=== PATIENT | male | born 1940 | race Caucasian/White ===

== ENCOUNTER 2021-06-24 12:37 | Inpatient (IN) | payer MEDICARE, BC ==
[~2021-06-24] VITALS: Ht 180.3 cm; Wt 145.5 kg
[~2021-06-24 12:37] MED LIST: AMLO10TA4 PO; BIMA2.5D EACHEYE; BUDE10.2 IH; CHOL10003 PO; ENAL5TAB12 PO; FENO145T PO; Hydralazine Hcl PO; INSU100I13 SQ; METF500T16 PO; OMEP20CA16 PO; PIOG30TA41 PO; TAMS0.4C97 PO; VENTOLIN HFA18 GM IH
[2021-06-24] MEDS ORDERED: NON FORMULARY ITEM (Albuterol Sulfate (Ventolin Hfa Inhaler) 2 PUFF) IH SCH (13:30)
[2021-06-24] MEDS ORDERED: ALBUTEROL SULFATE 2.5 MG/3 ML NEBU. NEB PRN (13:45)
[2021-06-24 15:00] VITALS: BP 126/42
[2021-06-24] MEDS: ALBUTEROL SULFATE 2.5 MG/3 ML NEBU. NEB SCH ×2 (16:26→20:18)
[2021-06-24 19:00] VITALS: BP 129/66
[2021-06-24] MEDS ORDERED: methylPREDNISolone 4 MG TABLET. PO SCH (20:00)
[2021-06-24] MEDS: BUDESONIDE 0.5 MG/2 ML NEBU. NEB SCH (20:18)
--- NOTE | 2021-06-24 20:48 | HP ---
DATE OF SERVICE: 06/24/2021 ADMIT DATE: 06/24/2021 CHIEF COMPLAINT: Intractable back pain. HISTORY OF PRESENT ILLNESS: The patient is a pleasant elderly male who has had 2 previous back surgeries. He also has multiple comorbidities. Please see below. He basically presented with intractable back pain at [facility]. They called me and explained the situation. It appears he has severe stenosis. We have transferred the patient here for consultation with Dr. Lechuga. PAST MEDICAL HISTORY: Two previous back surgeries, overweight, GERD, diabetes, hyperlipidemia, glaucoma, hypertension, BPH, osteoarthritis. ALLERGIES: None. FAMILY HISTORY: Diabetes. SOCIAL HISTORY: He is retired. Does not drink, smoke or take drugs. His has Alzheimer's. He lives with her. MEDICATIONS: Reviewed, please refer to the MRAD. REVIEW OF SYSTEMS: GENERAL: No history of weight change, weakness or fevers. SKIN: No bruising, hair changes or rashes. EYES: No blurred, double or loss of vision. NOSE AND THROAT: No history of nosebleeds, hoarseness or sore throat. HEART: No history of palpitations, chest pain or shortness of breath on exertion. LUNGS: Denies cough, hemoptysis, wheezing or shortness of breath. GASTROINTESTINAL: Denies changes in appetite, nausea, vomiting, diarrhea or constipation. GENITOURINARY: No history of frequency, urgency, hesitancy or nocturia. NEUROLOGIC: Denies history of numbness, tingling, tremor or weakness. PSYCHIATRIC: No history of panic, anxiety or depression. ENDOCRINE: No history of heat or cold intolerance, polyuria or polydipsia. BACK: Patient complains of pain. EXTREMITIES: Patient complains of pain. PHYSICAL EXAMINATION: VITALS: Within normal limits and are stable. GENERAL: He is obese. HEENT: Normal cephalic atraumatic, external auditory canals are patent EYES: Extraocular muscles are intact, pupils are equally round and reactive to light and accommodation MUSCULOSKELETAL: Well developed, well nourished, good range of motion ENDOCRINE: No thyromegaly was palpated LYMPHATICS: No cervical chain or axillary nodes were noted HEMATOPOIETIC: No bruising NECK: Supple, no JVD, no thyromegaly was noted. LUNGS: Clear to auscultation in all lung traylor without rhonchi or wheezing. HEART: RRR, S1, S2 present. Peripheral pulses intact, no obvious murmurs were noted. ABDOMEN: Soft, nontender. Positive bowel sounds no organomegaly, normal bowel sounds. EXTREMITIES: He has very dry skin and 2+ edema. Poor hygiene of the lower extremities. NEUROLOGIC: Normal speech, normal tone. A and O x 3, moves all extremities, no obvious focal deficits. PSYCHIATRIC: He is stable and pleasant. SKIN: No ulcerations or rashes, good skin turgor, no jaundice. VASCULAR: Good capillary refill, neurovascular bundle appears to be intact. ASSESSMENT AND PLAN: Intractable back pain, suspect recurrence or progression of his previous spinal stenosis. The patient has been admitted. We are consulting Dr. Lechuga. Home meds. Deep venous thrombosis prophylaxis. Full code. 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 We will start him on empiric Medrol Dosepak. Trend labs. UNIQUE/SUSU/RANCHO DR: UNIQUE/harrison TID: [id number]
[2021-06-24] MEDS ORDERED: NON FORMULARY ITEM (Budesonide/Formoterol Fumarate (Symbicort 160-4.5 Mcg Inhaler) 2 PUFF) IH SCH (21:00)
[2021-06-24] MEDS ORDERED: TAMSULOSIN 0.4 MG CAP.ER.24H. PO SCH (21:00)
[2021-06-24] MEDS ORDERED: methylPREDNISolone 4 MG TABLET. PO ONE (21:00)
[2021-06-24] MEDS: LATANOPROST 0.005% OPHTH SOLUTION 2.5ML BOTTLE. OD SCH (21:17)
[2021-06-24] MEDS: INSULIN GLARGINE SYRINGE. SQ SCH (21:26)
[2021-06-24 23:00] VITALS: BP 126/57
[2021-06-24] MEDS ORDERED: HYDROcodone/APAP 5/325MG 1 TAB TABLET PO PRN (23:00)
[2021-06-24] MEDS: HYDROcodone/APAP 5/325MG 1 TAB TABLET PO PRN (23:17)
[2021-06-25 03:00] VITALS: BP 121/61
[2021-06-25 04:17] LABS: BASO % 0 % (0-3); EOS % 0 % (0-3); HEMATOCRIT 39.9 % (39.0-53.0); HEMOGLOBIN 13.3 g/dL (13.0-17.5); LYMPH # 0.3 x10^3/uL (1.0-4.8); LYMPH % 6 % (24-48); MEAN CORPUSCULAR HEMOGLOBIN 32 pg (25-35); MEAN CORPUSCULAR HGB CONC 33 g/dL (31-37); MEAN CORPUSCULAR VOLUME 95 fL (79-100); MONO # 0.1 x10^3/uL (0.0-1.1); MONO % 2 % (0-9); NEUT # 4.4 x10^3/uL (1.8-7.7); NEUT % 91 % (31-73); PLATELET COUNT 152 x10^3/uL (140-400); RED BLOOD COUNT 4.21 x10^6/uL (4.30-5.70); RED CELL DISTRIBUTION WIDTH 16.1 % (11.5-14.5); WHITE BLOOD COUNT 4.9 x10^3/uL (4.0-11.0)
[2021-06-25 04:35] LABS: CREATININE 1.4 mg/dL (0.7-1.3); GFR 48.8; POTASSIUM 5.1 mmol/L (3.5-5.1)
[2021-06-25 07:00] VITALS: BP 145/69
[2021-06-25] MEDS: BUDESONIDE 0.5 MG/2 ML NEBU. NEB SCH ×2 (08:00→20:00)
[2021-06-25] MEDS: ALBUTEROL SULFATE 2.5 MG/3 ML NEBU. NEB SCH ×4 (08:00→20:40)
[2021-06-25] MEDS: PANTOPRAZOLE 40 MG TABLET.DR. PO SCH (08:16)
[2021-06-25] MEDS: HYDROcodone/APAP 5/325MG 1 TAB TABLET PO PRN ×3 (08:57→22:42)
[2021-06-25] MEDS: CHOLECALCIFEROL (VITAMIN D3) 1,000 UNIT TABLET PO SCH (08:57)
[2021-06-25] MEDS: FENOFIBRATE,MICRONIZED 134 MG CAPSULE PO SCH (08:58)
[2021-06-25] MEDS: methylPREDNISolone 4 MG TABLET. PO SCH ×3 (08:58→18:23)
[2021-06-25] MEDS: PIOGLITAZONE 15 MG TABLET. PO SCH (08:58)
[2021-06-25] MEDS ORDERED: CHOLECALCIFEROL (VITAMIN D3) 1,000 UNIT TABLET PO SCH (09:00)
[2021-06-25] MEDS ORDERED: ALLO100T PO (09:17)
[2021-06-25] MEDS ORDERED: HYDR-2761 PO (09:17)
[2021-06-25] MEDS ORDERED: POTA15TA9 PO (09:17)
[2021-06-25] MEDS ORDERED: TAMS0.4C97 PO (09:17)
[2021-06-25] MEDS ORDERED: GADOTERATE 7.5 MMOL/15ML VIAL. IVP ONE (11:15)
[2021-06-25 12:00] VITALS: BP 139/66
--- NOTE | 2021-06-25 13:21 | PDOC ---
[employer] PROGRESS NOTE Date of Service DOS: DATE: 06/25/21 TIME: 13:19 Chief Complaint Chief Complaint Back pain History of Present Illness History of Present Illness The patient is a pleasant elderly male who has had 2 previous back surgeries. He also has multiple comorbidities. Please see below. He basically presented with intractable back pain at [facility]. They called me and explained the situation. It appears he has severe stenosis. We have transferred the patient here for consultation with Dr. Lechuga. 06/25 Patient evaluated examined at bedside. Pain well says pain is ongoing. MRI has been performed but not read yet. Neurosurgery following. Vitals/I&O Vitals/I&O: Vital Signs Date Time Temp Pulse Resp B/P (MAP) Pulse Ox O2 Delivery O2 Flow Rate FiO2 06/25/21 12:00 97.8 67 18 139/66 (90) 92 Room Air 97.8 Physical Exam General: Alert, Oriented X3, Cooperative Heart: Regular rate, Normal S1, Normal S2 Lungs: Clear Abdomen: Normal bowel sounds, Soft, No tenderness Extremities: No edema, Normal pulses Skin: No significant lesion Labs Labs: Laboratory Tests Test 06/25/21 04:05 White Blood Count 4.9 x10^3/uL (4.0-11.0) Red Blood Count 4.21 x10^6/uL (4.30-5.70) Hemoglobin 13.3 g/dL (13.0-17.5) Hematocrit 39.9 % (39.0-53.0) Mean Corpuscular Volume 95 fL (79-100) Mean Corpuscular Hemoglobin 32 pg (25-35) Mean Corpuscular Hemoglobin Concent 33 g/dL (31-37) Red Cell Distribution Width 16.1 % (11.5-14.5) Platelet Count 152 x10^3/uL (140-400) Neutrophils (%) (Auto) 91 % (31-73) Lymphocytes (%) (Auto) 6 % (24-48) Monocytes (%) (Auto) 2 % (0-9) Eosinophils (%) (Auto) 0 % (0-3) Basophils (%) (Auto) 0 % (0-3) Neutrophils # (Auto) 4.4 x10^3/uL (1.8-7.7) Lymphocytes # (Auto) 0.3 x10^3/uL (1.0-4.8) Monocytes # (Auto) 0.1 x10^3/uL (0.0-1.1) Eosinophils # (Auto) 0.0 x10^3/uL (0.0-0.7) Basophils # (Auto) 0.0 x10^3/uL (0.0-0.2) Sodium Level 138 mmol/L (136-145) Potassium Level 5.1 mmol/L (3.5-5.1) Chloride Level 104 mmol/L (98-107) Carbon Dioxide Level 26 mmol/L (21-32) Anion Gap 8 (6-14) Blood Urea Nitrogen 44 mg/dL (8-26) Creatinine 1.4 mg/dL (0.7-1.3) Estimated GFR (Cockcroft-Gault) 48.8 Glucose Level 139 mg/dL (70-99) Calcium Level 9.0 mg/dL (8.5-10.1) Assessment and Plan Assessmemt and Plan Intractable back pain, suspect recurrence or progression of his previous spinal stenosis. The patient has been admitted. We are consulting Dr. Lechuga. Home meds. Deep venous thrombosis prophylaxis. Full code. PT, OT, case management referral for possible manager social responsibility. We will start him on empiric Medrol Dosepak. Trend labs. Comment Review of Relevant I have reviewed the following items shirin (where applicable) has been applied. Medications: Current Medications Medications (Trade) Dose Ordered Sig/Nigel Route PRN Reason Start Time Stop Time Status Last Admin Dose Admin Amlodipine Besylate (Norvasc) 10 mg DAILY PO 06/25/21 09:00 06/25/21 08:57 Vitamin D (Vitamin D3) 1,000 unit DAILY PO 06/25/21 09:00 06/25/21 08:57 Tamsulosin HCl (Flomax) 0.4 mg QHS PO 06/24/21 21:00 06/24/21 21:17 Latanoprost (Xalatan) 1 drop QHS OD 06/24/21 21:00 06/24/21 21:17 Fenofibrate (Lofibra) 134 mg DAILY PO 06/25/21 09:00 06/25/21 08:58 Insulin Glargine (Lantus Syringe) 26 unit QHS SQ 06/24/21 21:00 06/24/21 21:26 Pantoprazole Sodium (Protonix) 40 mg DAILYAC PO 06/25/21 07:30 06/25/21 08:16 Pioglitazone HCl (Actos) 30 mg DAILY PO 06/25/21 09:00 06/25/21 08:58 Hydralazine HCl (Apresoline) 50 mg TID PO 06/24/21 14:00 06/25/21 08:58 Budesonide (Pulmicort) 0.5 mg RTBID NEB 06/24/21 20:00 06/24/21 20:18 Albuterol Sulfate (Ventolin Neb Soln) 2.5 mg RTQID NEB 06/24/21 16:00 06/24/21 20:18 Methylprednisolone (Medrol) 24 mg 1X ONCE PO 06/24/21 21:00 06/24/21 21:01 DC 06/24/21 21:19 Methylprednisolone (Medrol) 4 mg TIDPC PO 06/25/21 08:30 06/25/21 17:31 06/25/21 08:58 Acetaminophen/ Hydrocodone Bitart (Lortab 5/325) 1 tab PRN Q4HRS PRN PO MODERATE PAIN 4-6 06/24/21 23:00 06/25/21 04:43 Acetaminophen/ Hydrocodone Bitart (Lortab 5/325) 2 tab PRN Q4HRS PRN PO SEVERE PAIN 7-10 06/24/21 23:00 06/25/21 08:57 Gadoterate Meglumine (Clariscan) 29.2 ml 1X ONCE IVP 06/25/21 11:15 06/25/21 11:16 DC 06/25/21 11:28 Justifications for Admission Other Justification LENIN VIRGEN MD Jun 25, 2021 13:20
--- NOTE | 2021-06-25 13:35 | RAD ---
MRI LUMBAR SPINE WITHOUT AND WITH IV CONTRAST Date: 06/25/2021 11:00 AM Indication: back pain, lumbar stenosis, previous surgery Comparison: CT lumbar spine 06/24/2021. Technique: Multi-planar multi-weighted magnetic resonance imaging of the lumbar spine was performed w ith and without intravenous contrast using the standard lumbar spine protocol. [address] was administered intravenously during the examination. FINDINGS: L3 compression deformity with 20 percent loss of vertebral body height. Edema and fracture cleft celso g the superior endplate. No osseous retropulsion. 4 mm anterolisthesis at L3-4 due to facet arthropathy. Advanced multilevel degenerative disc desiccat ion and disc height loss. The conus terminates at a normal level. No abnormal signal is seen within the visualized distal spina l cord. No clumping of intrathecal nerve roots. No abnormal enhancement. No soft tissue abnormality in the visualized abdomen or pelvis. T12-L1: No disc bulge. No facet arthropathy. No significant spinal stenosis or neural foraminal narro wing. L1-L2: Disc bulge. Mild facet arthropathy. Mild spinal stenosis. Mild bilateral neural foraminal narr owing. L2-L3: Disc bulge. Moderate facet arthropathy. Ligamentum flavum thickening. Moderate spinal stenosis . Mild bilateral neural foraminal narrowing. L3-L4: Disc bulge. Severe facet arthropathy. Ligamentum flavum thickening. Severe spinal stenosis and lateral recess near. Moderate right and mild to moderate left neural foraminal narrowing. L4-L5: Disc bulge with far lateral protrusions. Moderate facet arthropathy. Ligamentum flavum thicken ing moderate spinal stenosis. Severe lateral recess narrowing. Moderate to severe right and moderate left neural foraminal narrowing. L5-S1: Posterior decompression. Disc bulge with left greater than right far lateral protrusions. No s milo canal stenosis. Moderate right and mild left lateral recess narrowing. Moderate to severe bilat eral neural foraminal narrowing. IMPRESSION: 1. Acute to subacute L3 compression deformity with 20 percent height loss. No osseous retropulsion. 2. Advanced lumbar spondylosis, worst at L3-4 with severe spinal canal stenosis. Electronically signed by: Bienvenido Archibald MD (06/25/2021 1:32 PM) [facility]
[2021-06-25] MEDS: ALLOPURINOL 100 MG TABLET. PO SCH ×2 (13:44→20:53)
[2021-06-25 15:00] VITALS: BP 123/56
[2021-06-25 19:00] VITALS: BP 129/60
[2021-06-25] MEDS: TAMSULOSIN 0.4 MG CAP.ER.24H. PO SCH (20:53)
[2021-06-25] MEDS ORDERED: methylPREDNISolone 4 MG TABLET. PO SCH (21:00)
[2021-06-25] MEDS: LATANOPROST 0.005% OPHTH SOLUTION 2.5ML BOTTLE. OD SCH (21:12)
[2021-06-25] MEDS: INSULIN GLARGINE SYRINGE. SQ SCH (21:13)
[2021-06-25 23:00] VITALS: BP 143/58
[2021-06-26 03:00] VITALS: BP 142/56
[2021-06-26] MEDS: HYDROcodone/APAP 5/325MG 1 TAB TABLET PO PRN ×3 (04:16→22:05)
[2021-06-26] MEDS: PANTOPRAZOLE 40 MG TABLET.DR. PO SCH (05:51)
[2021-06-26 07:00] VITALS: BP 135/69
[2021-06-26 07:07] LABS: BASO % 0 % (0-3); EOS % 0 % (0-3); HEMATOCRIT 39.5 % (39.0-53.0); HEMOGLOBIN 13.2 g/dL (13.0-17.5); LYMPH # 0.3 x10^3/uL (1.0-4.8); LYMPH % 7 % (24-48); MEAN CORPUSCULAR HEMOGLOBIN 31 pg (25-35); MEAN CORPUSCULAR HGB CONC 33 g/dL (31-37); MEAN CORPUSCULAR VOLUME 94 fL (79-100); MONO # 0.2 x10^3/uL (0.0-1.1); MONO % 4 % (0-9); NEUT # 4.2 x10^3/uL (1.8-7.7); NEUT % 89 % (31-73); PLATELET COUNT 167 x10^3/uL (140-400); RED BLOOD COUNT 4.21 x10^6/uL (4.30-5.70); RED CELL DISTRIBUTION WIDTH 16.2 % (11.5-14.5); WHITE BLOOD COUNT 4.8 x10^3/uL (4.0-11.0)
[2021-06-26 07:21] LABS: CALCIUM 8.8 mg/dL (8.5-10.1); CREATININE 1.2 mg/dL (0.7-1.3); GFR 58.3
[2021-06-26] MEDS: ALBUTEROL SULFATE 2.5 MG/3 ML NEBU. NEB SCH ×4 (07:43→20:43)
[2021-06-26] MEDS: BUDESONIDE 0.5 MG/2 ML NEBU. NEB SCH ×2 (07:43→20:43)
--- NOTE | 2021-06-26 08:46 | PDOC ---
[employer] PROGRESS NOTE Date of Service DOS: DATE: 06/26/21 TIME: 08:36 Chief Complaint Chief Complaint A/P: Back pain - MRI with L3 compression deformity. 2 prior spine surgeries, appears to have L5 prior surgery Acute to subacute L3 compression deformity with 20 percent height loss - I have d/w IR risk for extravasation BPH - on flomax JESUS MANUEL on CKD - likely vasomotor nephropathy. Cr from 1.4 to 1.2 Severe spinal canal stenosis - neurosurgery consulted, given radicular signs HTN - home meds DM2 - sliding scale, home meds Morbid obesity - counseled on lifestyle modification FEN - NPO PPX - PPI FULL CODE Dispo - inpatient History of Present Illness History of Present Illness Mr Moore is an 80 yo male who has had 2 previous back surgeries. He also has multiple comorbidities. He basically presented with intractable back pain at [facility]. He notes he has been to pain management over the past couple of months for back pain and right hip pain. He had injection of right hip with no improvement and has had LESI and what he describes as MBB and RFA of spine over the past 2 months with some minimal improvement. He could not get off the toilet on 06/23/2021 after he sat down to urinate and has had worsening pain and stiffness of his lower back and right hip since. We have transferred the patient here for consultation with Dr. Lechuga. 06/25: Patient evaluated examined at bedside. Pain well says pain is ongoing. MRI completed with 1. Acute to subacute L3 compression deformity with 20 percent height loss. No osseous retropulsion. 2. Advanced lumbar spondylosis, worst at L3-4 with severe spinal canal stenosis. Overnight pain still difficult to control. Maher placed due to inability to get up to urinate and retention. 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 No loss of bowel function. Still with right hip pain and pain in right leg radiating down to foot, worse on straight leg raising. Not able to get up out of bed without 10/10 pain. Vitals/I&O Vitals/I&O: Vital Signs Date Time Temp Pulse Resp B/P (MAP) Pulse Ox O2 Delivery O2 Flow Rate FiO2 06/26/21 07:43 96 Room Air 06/26/21 07:00 98.5 65 18 135/69 (91) 98.5 I & O 06/25/21 06/25/21 06/26/21 15:00 23:00 07:00 Intake Total 300 ml 100 ml 0 ml Output Total 450 ml 550 ml Balance 300 ml -350 ml -550 ml Physical Exam General: Alert, Oriented X3, Cooperative Heart: Regular rate, Normal S1, Normal S2 Lungs: Clear Abdomen: Normal bowel sounds, Soft, No tenderness Extremities: No edema, Normal pulses Skin: No significant lesion Labs Labs: Laboratory Tests Test 06/26/21 06:40 White Blood Count 4.8 x10^3/uL (4.0-11.0) Red Blood Count 4.21 x10^6/uL (4.30-5.70) Hemoglobin 13.2 g/dL (13.0-17.5) Hematocrit 39.5 % (39.0-53.0) Mean Corpuscular Volume 94 fL (79-100) Mean Corpuscular Hemoglobin 31 pg (25-35) Mean Corpuscular Hemoglobin Concent 33 g/dL (31-37) Red Cell Distribution Width 16.2 % (11.5-14.5) Platelet Count 167 x10^3/uL (140-400) Neutrophils (%) (Auto) 89 % (31-73) Lymphocytes (%) (Auto) 7 % (24-48) Monocytes (%) (Auto) 4 % (0-9) Eosinophils (%) (Auto) 0 % (0-3) Basophils (%) (Auto) 0 % (0-3) Neutrophils # (Auto) 4.2 x10^3/uL (1.8-7.7) Lymphocytes # (Auto) 0.3 x10^3/uL (1.0-4.8) Monocytes # (Auto) 0.2 x10^3/uL (0.0-1.1) Eosinophils # (Auto) 0.0 x10^3/uL (0.0-0.7) Basophils # (Auto) 0.0 x10^3/uL (0.0-0.2) Sodium Level 138 mmol/L (136-145) Potassium Level 5.0 mmol/L (3.5-5.1) Chloride Level 102 mmol/L (98-107) Carbon Dioxide Level 29 mmol/L (21-32) Anion Gap 7 (6-14) Blood Urea Nitrogen 38 mg/dL (8-26) Creatinine 1.2 mg/dL (0.7-1.3) Estimated GFR (Cockcroft-Gault) 58.3 Glucose Level 133 mg/dL (70-99) Calcium Level 8.8 mg/dL (8.5-10.1) Comment Review of Relevant I have reviewed the following items shirin (where applicable) has been applied. Medications: Current Medications Medications (Trade) Dose Ordered Sig/Nigel Route PRN Reason Start Time Stop Time Status Last Admin Dose Admin Amlodipine Besylate (Norvasc) 10 mg DAILY PO 06/25/21 09:00 06/25/21 08:57 Vitamin D (Vitamin D3) 1,000 unit DAILY PO 06/25/21 09:00 06/25/21 08:57 Fenofibrate (Lofibra) 134 mg DAILY PO 06/25/21 09:00 06/25/21 08:58 Pioglitazone HCl (Actos) 30 mg DAILY PO 06/25/21 09:00 06/25/21 08:58 Methylprednisolone (Medrol) 8 mg QHS PO 06/25/21 21:00 06/25/21 21:01 DC 06/25/21 20:53 Gadoterate Meglumine (Clariscan) 29.2 ml 1X ONCE IVP 06/25/21 11:15 06/25/21 11:16 DC 06/25/21 11:28 Allopurinol (Zyloprim) 100 mg BID PO 06/25/21 12:00 06/25/21 20:53 Tamsulosin HCl (Flomax) 0.8 mg QHS PO 06/25/21 21:00 06/25/21 20:53 Justifications for Admission Other Justification LENIN ELLIOTT MD Jun 26, 2021 08:46
[2021-06-26] MEDS: FENOFIBRATE,MICRONIZED 134 MG CAPSULE PO SCH (09:00)
[2021-06-26] MEDS: methylPREDNISolone 4 MG TABLET. PO SCH ×4 (09:00→21:09)
[2021-06-26] MEDS: CHOLECALCIFEROL (VITAMIN D3) 1,000 UNIT TABLET PO SCH (09:00)
[2021-06-26] MEDS ORDERED: DEXTROSE 50% 25 GM / 50ML DISP.SYRIN. IV PRN (09:00)
[2021-06-26] MEDS: PIOGLITAZONE 15 MG TABLET. PO SCH (09:00)
[2021-06-26] MEDS: ALLOPURINOL 100 MG TABLET. PO SCH ×2 (09:00→21:09)
[2021-06-26 09:38] LABS: % BANDS 1 % (0-9); % LYMPHS 7 % (24-48); % MONOS 3 % (0-10); % SEGS 89 % (35-66)
[2021-06-26 09:39] LABS: PLT ESTIMATE ADEQUATE (ADEQUATE)
[2021-06-26 11:00] VITALS: BP 148/61
[2021-06-26] MEDS: INSULIN LISPRO 300 UNITS/3 ML VIAL. SQ SCH ×2 (12:00→17:00)
--- NOTE | 2021-06-26 12:21 | PDOC ---
Provider Note Date of Service: DATE: 06/26/21 TIME: 12:13 Provider Note Patient seen and examined consulted for back pain c/o back and right hip and leg pain chronic back pain , worsened over last 3 weeks, reports 3 falls has been seen at pain clinic in [place] over the last few months, recently had right hip injection normal strength in lower extremities Lumbar MRI subacute, acute fracture of L3, grade I anterolisthesis L3-4, relatively severe stenosis at L3-4 and L4-5 At this point recommend vertebroplasty and potentially EMILIANO to allow fracture to heal At some point he may require decompressions at L3-4 and L4-5 however it is complicated by acute fracture of L3 and probability of instrumention being required at L3-4 due to anterolisthesis will follow Justifications for Admission Other Justification BRIGITTE BOSE MD Jun 26, 2021 12:21
[2021-06-26] MEDS ORDERED: fentaNYL PF VIAL 100 MCG/2 ML VIAL IVP PRN (13:30)
[2021-06-26] MEDS ORDERED: VANCOMYCIN 2 GM in IV NORMAL SALINE 500ML BAG 500 ML IV ONE (14:00)
[2021-06-26] MEDS: VANCOMYCIN PER PHARMACY MC PRN (14:54)
--- NOTE | 2021-06-26 14:55 | NUR ---
Pharmacy Vancomycin Dosing Note S:Consulted to monitor and dose vancomycin started 06/26/21. O:ALEXEI POSADAS is a 80 year old M with UTI . Height: 5 feet, 11 inches Weight: 145.5 kg [place] Body Weight: 75.30 Adjusted Body Weight: 103.38 Dosing Weight: Actual Other Antibiotics: LABS: Last BUN: 38 Last Creatinine: 1.2 Creatinine Clearance: 72 mL/min Last WBC: 4.8 Last Procalcitonin: Tmax (past 24 hours): 98.5 Microbiology: From [facility] Urine (06/24): >100,000 staph aureus I/O: 400/1000 Drug Levels: Last level: on at Last dose given 06/26/21 at 1418 Vancomycin Dosing: Loading Dose: 2000 mg x1 Dosing Weight: Actual Target Trough: 10-20 A: Based on: Body weight and renal function P: 1. Start Vancomycin 2000 mg IV q24h 2. Follow up Trough level on 06/28/21 at 1330 3. Pharmacy will continue to monitor, follow and adjust therapy as needed. ERON RABGAO [facility], 06/26/21 [id number]
[2021-06-26 15:00] VITALS: BP 100/47
[2021-06-26 19:30] VITALS: BP 138/66
[2021-06-26] MEDS: TAMSULOSIN 0.4 MG CAP.ER.24H. PO SCH (21:00)
[2021-06-26] MEDS: LATANOPROST 0.005% OPHTH SOLUTION 2.5ML BOTTLE. OD SCH (21:09)
[2021-06-26] MEDS: MINERAL OIL/PETROLATUM TOPICAL CREAM 113GM JAR. TP SCH (21:11)
[2021-06-26] MEDS: INSULIN GLARGINE SYRINGE. SQ SCH (21:18)
[2021-06-26 23:04] VITALS: BP 124/62
[2021-06-27] VITALS (14 sets, daily range): BP systolic 98–166; BP diastolic 48–77
[2021-06-27 04:49] LABS: BASO % 0 % (0-3); EOS % 1 % (0-3); HEMATOCRIT 39.6 % (39.0-53.0); HEMOGLOBIN 12.9 g/dL (13.0-17.5); LYMPH # 0.3 x10^3/uL (1.0-4.8); LYMPH % 8 % (24-48); MEAN CORPUSCULAR HEMOGLOBIN 31 pg (25-35); MEAN CORPUSCULAR HGB CONC 33 g/dL (31-37); MEAN CORPUSCULAR VOLUME 95 fL (79-100); MONO # 0.2 x10^3/uL (0.0-1.1); MONO % 4 % (0-9); NEUT # 3.7 x10^3/uL (1.8-7.7); NEUT % 87 % (31-73); PLATELET COUNT 168 x10^3/uL (140-400); RED BLOOD COUNT 4.19 x10^6/uL (4.30-5.70); RED CELL DISTRIBUTION WIDTH 15.9 % (11.5-14.5); WHITE BLOOD COUNT 4.3 x10^3/uL (4.0-11.0)
[2021-06-27 05:28] LABS: CALCIUM 8.7 mg/dL (8.5-10.1); GFR 71.9; POTASSIUM 4.5 mmol/L (3.5-5.1)
[2021-06-27] MEDS: HYDROcodone/APAP 5/325MG 1 TAB TABLET PO PRN ×3 (06:32→17:54)
--- NOTE | 2021-06-27 06:58 | PDOC ---
[employer] PROGRESS NOTE Date of Service DOS: DATE: 06/27/21 TIME: 06:57 Chief Complaint Chief Complaint A/P: Back pain - MRI with L3 compression deformity. 2 prior spine surgeries, appears to have L5 prior surgery Acute to subacute L3 compression deformity with 20 percent height loss - I have d/w IR for kyphoplasty BPH - on flomax. Maher placed for overflow incontinence JESUS MANUEL on CKD - likely vasomotor nephropathy. Cr from 1.4 to 1.2 Severe spinal canal stenosis - neurosurgery consulted, given radicular signs HTN - home meds DM2 - sliding scale, home meds Morbid obesity - counseled on lifestyle modification Staph UTI - started on vancomycin, is MSSA, will cont vancomycin for now FEN - NPO PPX - PPI FULL CODE Dispo - inpatient History of Present Illness History of Present Illness Mr Moore is an 80 yo male who has had 2 previous back surgeries. He also has multiple comorbidities. He basically presented with intractable back pain at [facility]. He notes he has been to pain management over the past couple of months for back pain and right hip pain. He had injection of right hip with no improvement and has had LESI and what he describes as MBB and RFA of spine over the past 2 months with some minimal improvement. He could not get off the toilet on 06/23/2021 after he sat down to urinate and has had worsening pain and stiffness of his lower back and right hip since. We have transferred the patient here for consultation with Dr. Lechuga. 06/25: Patient evaluated examined at bedside. Pain well says pain is ongoing. MRI completed with 1. Acute to subacute L3 compression deformity with 20 percent height loss. No osseous retropulsion. 2. Advanced lumbar spondylosis, worst at L3-4 with severe spinal canal stenosis. 06/26: Overnight pain still difficult to control. Maher placed due to inability to get up to urinate and retention. 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 No l oss of bowel function. Still with right hip pain and pain in right leg radiating down to foot, worse on straight leg raising. Not able to get up out of bed without 10/10 pain. To kyphoplasty this morning. Staph in urine returned MSSA. Pain stable, severe, down right leg and hip. No SOB or CP. Vitals/I&O Vitals/I&O: Vital Signs Date Time Temp Pulse Resp B/P (MAP) Pulse Ox O2 Delivery O2 Flow Rate FiO2 06/27/21 06:32 20 Room Air 06/27/21 03:01 98.1 94 136/54 (81) 94 98.1 I & O 06/26/21 06/26/21 06/27/21 15:00 23:00 07:00 Intake Total 240 ml 360 ml Output Total 1225 ml 300 ml Balance -985 ml 60 ml Physical Exam General: Alert, Oriented X3, Cooperative Heart: Regular rate, Normal S1, Normal S2 Lungs: Clear Abdomen: Normal bowel sounds, Soft, No tenderness Extremities: No edema, Normal pulses Skin: No significant lesion Labs Labs: Laboratory Tests Test 06/26/21 12:19 06/26/21 16:56 06/26/21 21:05 06/27/21 04:20 Glucose (Fingerstick) 107 mg/dL (70-99) 144 mg/dL (70-99) 151 mg/dL (70-99) White Blood Count 4.3 x10^3/uL (4.0-11.0) Red Blood Count 4.19 x10^6/uL (4.30-5.70) Hemoglobin 12.9 g/dL (13.0-17.5) Hematocrit 39.6 % (39.0-53.0) Mean Corpuscular Volume 95 fL (79-100) Mean Corpuscular Hemoglobin 31 pg (25-35) Mean Corpuscular Hemoglobin Concent 33 g/dL (31-37) Red Cell Distribution Width 15.9 % (11.5-14.5) Platelet Count 168 x10^3/uL (140-400) Neutrophils (%) (Auto) 87 % (31-73) Lymphocytes (%) (Auto) 8 % (24-48) Monocytes (%) (Auto) 4 % (0-9) Eosinophils (%) (Auto) 1 % (0-3) Basophils (%) (Auto) 0 % (0-3) Neutrophils # (Auto) 3.7 x10^3/uL (1.8-7.7) Lymphocytes # (Auto) 0.3 x10^3/uL (1.0-4.8) Monocytes # (Auto) 0.2 x10^3/uL (0.0-1.1) Eosinophils # (Auto) 0.0 x10^3/uL (0.0-0.7) Basophils # (Auto) 0.0 x10^3/uL (0.0-0.2) Sodium Level 137 mmol/L (136-145) Potassium Level 4.5 mmol/L (3.5-5.1) Chloride Level 102 mmol/L (98-107) Carbon Dioxide Level 30 mmol/L (21-32) Anion Gap 5 (6-14) Blood Urea Nitrogen 38 mg/dL (8-26) Creatinine 1.0 mg/dL (0.7-1.3) Estimated GFR (Cockcroft-Gault) 71.9 Glucose Level 113 mg/dL (70-99) Calcium Level 8.7 mg/dL (8.5-10.1) Comment Review of Relevant I have reviewed the following items shirin (where applicable) has been applied. Medications: Current Medications Medications (Trade) Dose Ordered Sig/Nigel Route PRN Reason Start Time Stop Time Status Last Admin Dose Admin Methylprednisolone (Medrol) 4 mg QIDAFTMEAL PO 06/26/21 09:00 06/26/21 21:01 DC 06/26/21 21:09 Vancomycin HCl (Vanco Per Pharmacy) 1 each PRN DAILY PRN MC SEE COMMENTS 06/26/21 13:30 06/26/21 14:54 Vancomycin HCl 2 gm/Sodium Chloride 500 ml @ 250 mls/hr 1X ONCE IV 06/26/21 14:00 06/26/21 15:59 DC 06/26/21 14:18 Multi-Ingredient Ointment (Hydrocerin, Eucerin Cream) 1 kina BID TP 06/26/21 21:00 06/26/21 21:11 Justifications for Admission Other Justification LENIN ELLIOTT MD Jun 27, 2021 06:58
[2021-06-27] MEDS: ALBUTEROL SULFATE 2.5 MG/3 ML NEBU. NEB SCH ×4 (07:19→20:02)
[2021-06-27] MEDS: BUDESONIDE 0.5 MG/2 ML NEBU. NEB SCH ×2 (07:19→20:02)
[2021-06-27] MEDS: INSULIN LISPRO 300 UNITS/3 ML VIAL. SQ SCH ×3 (08:00→17:00)
[2021-06-27] MEDS ORDERED: IOHEXOL 240 MG/ML 50ML VIAL. ONE (08:26)
[2021-06-27] MEDS ORDERED: LIDOCAINE WITH 8.4% SOD BICARB 3 ML DISP.SYRIN. ONE (08:26)
--- NOTE | 2021-06-27 08:29 | CONS ---
DATE OF CONSULTATION: 06/26/2021 LOCATION: He is in room 444. ATTENDING PHYSICIAN: Ailyn Bashir DO REASON FOR CONSULTATION: The patient was seen at the request of Dr. Bashir and Dr. Lechuga for rehab evaluation. 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 The patient had lumbar spine surgery done twice early 50s or 60s and also in the last [address] Tidwell for lumbar spinal stenosis. He also had bilateral total knee arthroplasties done by Dr. Qureshi without any problems. The patient had chronic back pain and he has been taking hydrocodone 2 tablets every 6 hours, also being followed by [facility] where he had epidural steroid injections and radiofrequency ablations with some help, but still requiring narcotic pain medication on a regular basis. He uses a roller walker on an as needed basis. The patient was admitted as per transfer from [facility] on 06/24/2021 with intractable back pain. He denies any specific injury or falls recently. He had MRI scan of lumbar vertebrae, which revealed multilevel degenerative disk disease and degenerative joint disease with acute to subacute compression deformity of L3 vertebral body and lumbar spinal stenosis and spondylolisthesis at multiple levels and the patient is being considered for L3 kyphoplasty and Dr. Lechuga felt like he might need lumbar spine surgery later on, but concern about his L3 vertebral body compression fracture to stabilize the spine. The patient also with history of obesity, gastroesophageal reflux disease, diabetes mellitus, hyperlipidemia, glaucoma, hypertension, benign prostatic hypertrophy, osteoarthritis and significant weakness and stiffness of both shoulders. He also had previous radiological studies of his cervical vertebrae, which revealed degenerative disk disease and degenerative joint disease. The patient admits numbness in both hands. ALLERGIES: He is not known allergic to any medication. PHYSICAL EXAMINATION: Today revealed an elderly obese male. He is alert, oriented to time, place, person and circumstance and follows commands appropriately. He is in no acute distress. He had minimal tenderness to palpation over lumbar spine and adjoining sacroiliac joint area. Straight leg raising test is negative bilaterally. He had significant weakness of rotator cuff muscles, especially on the left side and also relative weakness of biceps brachii muscles bilaterally. He had crepitus on range of motion of both shoulder joints. He had equal perception of touch and pinprick sensation bilaterally except for decreased sensory perception over median nerve distribution in both hands with positive Tinel sign over median nerve at the wrist and positive Phalen sign at both wrists. He also had a positive Tinel sign over the ulnar nerve at the elbow. The patient had muscle atrophy involving thenar eminence muscles in both hands. He had dry scaly skin of his feet and legs. He requires help with rolling from side to side. I have not tested his transfers or ambulation skills at this time. He had some tenderness to palpation over anterior aspect of both shoulders. ASSESSMENT: Elderly male with chronic lower back pain from degenerative disk disease and degenerative joint disease of lumbar vertebrae with associated spondylolisthesis and lumbar spinal stenosis at L3-L4, L4-L5 level and subacute L3 vertebral body compression fracture. No clinical evidence of ongoing lumbar radiculopathy or lumbar spinal stenosis. He denies any trouble with his bowel or bladder control. He also presents with bilateral rotator cuff tear, left more than right side with significant weakness of rotator cuff muscles and also biceps brachii to rule out associated degenerative disk disease and degenerative joint disease of cervical vertebrae with associated cervical spinal stenosis. 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 He had dry scaly skin of his lower extremities and he is obese. RECOMMENDATIONS: Agree with the plan for kyphoplasty. He had lumbar support braces at home. He is not sure that helps any to see how he does move after kyphoplasty with physical therapy. He might need nursing home care unit or home with home health depending upon his mobility. He needs MRI scan of his both shoulders and cervical vertebrae. I am not sure it can be done at present time. Dr. Lechuga and Krysten, I appreciate asking me to participate in the care of this interesting patient. I will be glad to see him for followup with you on as needed basis. NAYELI/VASQUEZ/SANJAY DR: NAYELI/harrison TID: [id number] MTDD
[2021-06-27] MEDS ORDERED: IOHEXOL 240 MG/ML 50ML VIAL. IJ ONE (08:45)
[2021-06-27] MEDS ORDERED: LIDOCAINE WITH 8.4% SOD BICARB 3 ML DISP.SYRIN. IJ ONE (08:45)
[2021-06-27] MEDS ORDERED: MIDAZOLAM HCL/PF 5 MG/5 ML VIAL. IV ONE (08:45)
[2021-06-27] MEDS ORDERED: fentaNYL PF VIAL 100 MCG/2 ML VIAL IV ONE (08:45)
[2021-06-27] MEDS ORDERED: MIDAZOLAM HCL/PF 5 MG/5 ML VIAL. ONE (08:54)
[2021-06-27] MEDS ORDERED: fentaNYL PF VIAL 100 MCG/2 ML VIAL ONE (08:54)
[2021-06-27] MEDS ORDERED: ceFAZolin SODIUM 3 GM in IV DEXTROSE 5% 100ML 100 ML IV ONE (09:00)
[2021-06-27] MEDS: VANCOMYCIN PER PHARMACY MC PRN (12:25)
[2021-06-27] MEDS: PIOGLITAZONE 15 MG TABLET. PO SCH (12:35)
[2021-06-27] MEDS: MINERAL OIL/PETROLATUM TOPICAL CREAM 113GM JAR. TP SCH ×2 (12:35→21:23)
[2021-06-27] MEDS: FENOFIBRATE,MICRONIZED 134 MG CAPSULE PO SCH (12:35)
[2021-06-27] MEDS: CHOLECALCIFEROL (VITAMIN D3) 1,000 UNIT TABLET PO SCH (12:35)
[2021-06-27] MEDS: methylPREDNISolone 4 MG TABLET. PO SCH ×3 (12:35→21:16)
[2021-06-27] MEDS: PANTOPRAZOLE 40 MG TABLET.DR. PO SCH (12:36)
[2021-06-27] MEDS: ALLOPURINOL 100 MG TABLET. PO SCH ×2 (12:36→21:16)
[2021-06-27] MEDS: VANCOMYCIN 2 GM in IV NORMAL SALINE 500ML BAG 500 ML IV SCH (14:50)
--- NOTE | 2021-06-27 16:46 | PDOC ---
PROGRESS NOTES Date of Service DATE: 06/27/21 TIME: 16:43 Subjective Subjective He admits significant help with severity of his low back pain since kyphoplasty. Objective Objective Vital Signs Date Time Temp Pulse Resp B/P (MAP) Pulse Ox O2 Delivery O2 Flow Rate FiO2 06/27/21 15:37 Room Air 06/27/21 15:00 97.8 91 18 117/48 (71) 92 97.8 06/27/21 10:01 2.0 Intake and Output 06/27/21 07:00 Intake Total 600 ml Output Total 1525 ml Balance -925 ml Intake Oral 600 ml Output Urine Total 1525 ml Physical Exam Physical Exam He is supine in bed and seems to be comfortable and he states that he got up to commode. Plan Plan of Care To d/c Maher catheter tomorrow AM and see how he does with mobility,to decide on home with home health follow up or SNF transfer. Comment Review of Relevant I have reviewed the following items shirin (where applicable) has been applied. Labs Laboratory Tests Test 06/26/21 06:40 06/26/21 12:19 06/26/21 16:56 06/26/21 21:05 White Blood Count 4.8 x10^3/uL (4.0-11.0) Red Blood Count 4.21 x10^6/uL (4.30-5.70) Hemoglobin 13.2 g/dL (13.0-17.5) Hematocrit 39.5 % (39.0-53.0) Mean Corpuscular Volume 94 fL (79-100) Mean Corpuscular Hemoglobin 31 pg (25-35) Mean Corpuscular Hemoglobin Concent 33 g/dL (31-37) Red Cell Distribution Width 16.2 % (11.5-14.5) Platelet Count 167 x10^3/uL (140-400) Neutrophils (%) (Auto) 89 % (31-73) Lymphocytes (%) (Auto) 7 % (24-48) Monocytes (%) (Auto) 4 % (0-9) Eosinophils (%) (Auto) 0 % (0-3) Basophils (%) (Auto) 0 % (0-3) Neutrophils # (Auto) 4.2 x10^3/uL (1.8-7.7) Lymphocytes # (Auto) 0.3 x10^3/uL (1.0-4.8) Monocytes # (Auto) 0.2 x10^3/uL (0.0-1.1) Eosinophils # (Auto) 0.0 x10^3/uL (0.0-0.7) Basophils # (Auto) 0.0 x10^3/uL (0.0-0.2) Segmented Neutrophils % 89 % (35-66) Band Neutrophils % 1 % (0-9) Lymphocytes % 7 % (24-48) Monocytes % 3 % (0-10) Platelet Estimate Adequate (ADEQUATE) Large Platelets Occ Sodium Level 138 mmol/L (136-145) Potassium Level 5.0 mmol/L (3.5-5.1) Chloride Level 102 mmol/L (98-107) Carbon Dioxide Level 29 mmol/L (21-32) Anion Gap 7 (6-14) Blood Urea Nitrogen 38 mg/dL (8-26) Creatinine 1.2 mg/dL (0.7-1.3) Estimated GFR (Cockcroft-Gault) 58.3 Glucose Level 133 mg/dL (70-99) Calcium Level 8.8 mg/dL (8.5-10.1) Glucose (Fingerstick) 107 mg/dL (70-99) 144 mg/dL (70-99) 151 mg/dL (70-99) Test 06/27/21 04:20 06/27/21 08:00 06/27/21 11:08 White Blood Count 4.3 x10^3/uL (4.0-11.0) Red Blood Count 4.19 x10^6/uL (4.30-5.70) Hemoglobin 12.9 g/dL (13.0-17.5) Hematocrit 39.6 % (39.0-53.0) Mean Corpuscular Volume 95 fL (79-100) Mean Corpuscular Hemoglobin 31 pg (25-35) Mean Corpuscular Hemoglobin Concent 33 g/dL (31-37) Red Cell Distribution Width 15.9 % (11.5-14.5) Platelet Count 168 x10^3/uL (140-400) Neutrophils (%) (Auto) 87 % (31-73) Lymphocytes (%) (Auto) 8 % (24-48) Monocytes (%) (Auto) 4 % (0-9) Eosinophils (%) (Auto) 1 % (0-3) Basophils (%) (Auto) 0 % (0-3) Neutrophils # (Auto) 3.7 x10^3/uL (1.8-7.7) Lymphocytes # (Auto) 0.3 x10^3/uL (1.0-4.8) Monocytes # (Auto) 0.2 x10^3/uL (0.0-1.1) Eosinophils # (Auto) 0.0 x10^3/uL (0.0-0.7) Basophils # (Auto) 0.0 x10^3/uL (0.0-0.2) Sodium Level 137 mmol/L (136-145) Potassium Level 4.5 mmol/L (3.5-5.1) Chloride Level 102 mmol/L (98-107) Carbon Dioxide Level 30 mmol/L (21-32) Anion Gap 5 (6-14) Blood Urea Nitrogen 38 mg/dL (8-26) Creatinine 1.0 mg/dL (0.7-1.3) Estimated GFR (Cockcroft-Gault) 71.9 Glucose Level 113 mg/dL (70-99) Calcium Level 8.7 mg/dL (8.5-10.1) Glucose (Fingerstick) 109 mg/dL (70-99) 93 mg/dL (70-99) Laboratory Tests Test 06/26/21 16:56 06/26/21 21:05 06/27/21 04:20 06/27/21 08:00 Glucose (Fingerstick) 144 mg/dL (70-99) 151 mg/dL (70-99) 109 mg/dL (70-99) White Blood Count 4.3 x10^3/uL (4.0-11.0) Red Blood Count 4.19 x10^6/uL (4.30-5.70) Hemoglobin 12.9 g/dL (13.0-17.5) Hematocrit 39.6 % (39.0-53.0) Mean Corpuscular Volume 95 fL (79-100) Mean Corpuscular Hemoglobin 31 pg (25-35) Mean Corpuscular Hemoglobin Concent 33 g/dL (31-37) Red Cell Distribution Width 15.9 % (11.5-14.5) Platelet Count 168 x10^3/uL (140-400) Neutrophils (%) (Auto) 87 % (31-73) Lymphocytes (%) (Auto) 8 % (24-48) Monocytes (%) (Auto) 4 % (0-9) Eosinophils (%) (Auto) 1 % (0-3) Basophils (%) (Auto) 0 % (0-3) Neutrophils # (Auto) 3.7 x10^3/uL (1.8-7.7) Lymphocytes # (Auto) 0.3 x10^3/uL (1.0-4.8) Monocytes # (Auto) 0.2 x10^3/uL (0.0-1.1) Eosinophils # (Auto) 0.0 x10^3/uL (0.0-0.7) Basophils # (Auto) 0.0 x10^3/uL (0.0-0.2) Sodium Level 137 mmol/L (136-145) Potassium Level 4.5 mmol/L (3.5-5.1) Chloride Level 102 mmol/L (98-107) Carbon Dioxide Level 30 mmol/L (21-32) Anion Gap 5 (6-14) Blood Urea Nitrogen 38 mg/dL (8-26) Creatinine 1.0 mg/dL (0.7-1.3) Estimated GFR (Cockcroft-Gault) 71.9 Glucose Level 113 mg/dL (70-99) Calcium Level 8.7 mg/dL (8.5-10.1) Test 06/27/21 11:08 Glucose (Fingerstick) 93 mg/dL (70-99) Medications Current Medications Amlodipine Besylate (Norvasc) 10 mg DAILY PO Last administered on 06/27/21at 12:35; Start 06/25/21 at 09:00 Vitamin D (Vitamin D3) 1,000 unit DAILY PO Last administered on 06/27/21at 12:35; Start 06/25/21 at 09:00 Vitamin D (Vitamin D3) 1,000 unit DAILY PO ; Start 06/25/21 at 09:00; Status UNV Tamsulosin HCl (Flomax) 0.4 mg QHS PO Last administered on 06/24/21at 21:17; Start 06/24/21 at 21:00; Stop 06/25/21 at 20:48; Status DC Non-Formulary Medication (Albuterol Sulfate (Ventolin Hfa Inhaler)) 2 puff PRN Q4-6HRS IH ; Start 06/24/21 at 13:30; Status UNV Latanoprost (Xalatan) 1 drop QHS OD Last administered on 06/26/21at 21:09; Start 06/24/21 at 21:00 Non-Formulary Medication (Budesonide/ Formoterol Fumarate (Symbicort 160-4.5 Mcg Inhaler)) 2 puff BID IH ; Start 06/24/21 at 21:00; Status UNV Fenofibrate (Lofibra) 134 mg DAILY PO Last administered on 06/27/21at 12:35; Start 06/25/21 at 09:00 Insulin Glargine (Lantus Syringe) 26 unit QHS SQ Last administered on 06/26/21at 21:18; Start 06/24/21 at 21:00 Pantoprazole Sodium (Protonix) 40 mg DAILYAC PO Last administered on 06/27/21at 12:36; Start 06/25/21 at 07:30 Pioglitazone HCl (Actos) 30 mg DAILY PO Last administered on 06/27/21at 12:35; Start 06/25/21 at 09:00 Hydralazine HCl (Apresoline) 50 mg TID PO Last administered on 06/26/21at 21:08; Start 06/24/21 at 14:00 Budesonide (Pulmicort) 0.5 mg RTBID NEB Last administered on 06/27/21at 07:19; Start 06/24/21 at 20:00 Albuterol Sulfate (Ventolin Neb Soln) 2.5 mg RTQID NEB Last administered on 06/27/21at 15:36; Start 06/24/21 at 16:00 Albuterol Sulfate (Ventolin Neb Soln) 2.5 mg PRN Q6HRS PRN NEB SHORTNESS OF BREATH; Start 06/24/21 at 13:45 Methylprednisolone (Medrol) 24 mg 1X ONCE PO Last administered on 06/24/21at 21:19; Start 06/24/21 at 21:00; Stop 06/24/21 at 21:01; Status DC Methylprednisolone (Medrol) 4 mg BIDPCLD PO ; Start 06/24/21 at 20:00; Stop 06/25/21 at 12:31; Status UNV Methylprednisolone (Medrol) 4 mg TIDPC PO Last administered on 06/25/21at 18:23; Start 06/25/21 at 08:30; Stop 06/25/21 at 17:31; Status DC Methylprednisolone (Medrol) 8 mg QHS PO Last administered on 06/25/21at 20:53; Start 06/25/21 at 21:00; Stop 06/25/21 at 21:01; Status DC Methylprednisolone (Medrol) 4 mg QIDAFTMEAL PO Last administered on 06/26/21at 21:09; Start 06/26/21 at 09:00; Stop 06/26/21 at 21:01; Status DC Methylprednisolone (Medrol) 4 mg TID PO Last administered on 06/27/21at 14:50; Start 06/27/21 at 09:00; Stop 06/27/21 at 21:01 Methylprednisolone (Medrol) 4 mg BID PO ; Start 06/28/21 at 09:00; Stop 06/28/21 at 21:01 Methylprednisolone (Medrol) 4 mg DAILY PO ; Start 06/29/21 at 09:00; Stop 06/29/21 at 09:01 Acetaminophen/ Hydrocodone Bitart (Lortab 5/325) 1 tab PRN Q4HRS PRN PO MODERATE PAIN 4-6 Last administered on 06/25/21at 04:43; Start 06/24/21 at 23:0 0 Acetaminophen/ Hydrocodone Bitart (Lortab 5/325) 2 tab PRN Q4HRS PRN PO SEVERE PAIN 7-10 Last administered on 06/27/21at 13:09; Start 06/24/21 at 23:00 Gadoterate Meglumine (Clariscan) 29.2 ml 1X ONCE IVP Last administered on 06/25/21at 11:28; Start 06/25/21 at 11:15; Stop 06/25/21 at 11:16; Status DC Allopurinol (Zyloprim) 100 mg BID PO Last administered on 06/27/21at 12:36; Start 06/25/21 at 12:00 Tamsulosin HCl (Flomax) 0.8 mg QHS PO Last administered on 06/26/21at 21:00; Start 06/25/21 at 21:00 Insulin Human Lispro (HumaLOG) 0-9 UNITS TIDWMEALS SQ ; Start 06/26/21 at 12:00 Dextrose (Dextrose 50%-Water Syringe) 12.5 gm PRN Q15MIN PRN IV SEE COMMENTS; Start 06/26/21 at 09:00 Fentanyl Citrate (Fentanyl 2ml Vial) 25 mcg PRN Q3HRS PRN IVP SEVERE PAIN 7-10; Start 06/26/21 at 13:30 Vancomycin HCl (Vanco Per Pharmacy) 1 each PRN DAILY PRN MC SEE COMMENTS Last administered on 06/27/21at 12:25; Start 06/26/21 at 13:30 Vancomycin HCl 2 gm/Sodium Chloride 500 ml @ 250 mls/hr 1X ONCE IV Last adm inistered on 06/26/21at 14:18; Start 06/26/21 at 14:00; Stop 06/26/21 at 15:59; Status DC Vancomycin HCl (Vancomycin Trough Level) 1 each 1X ONCE MC ; Start 06/28/21 at 13:30; Stop 06/28/21 at 13:31 Vancomycin HCl 2 gm/Sodium Chloride 500 ml @ 250 mls/hr Q24H IV Last administered on 06/27/21at 14:50; Start 06/27/21 at 14:00 Multi-Ingredient Ointment (Hydrocerin, Eucerin Cream) 1 kina BID TP Last administered on 06/27/21at 12:35; Start 06/26/21 at 21:00 Iohexol (Omnipaque 240 Mg/ml) 50 ml STK-MED ONCE .ROUTE ; Start 06/27/21 at 08:26; Stop 06/27/21 at 08:26; Status DC Lidocaine HCl (Buffered Lidocaine 1%) 3 ml STK-MED ONCE .ROUTE ; Start 06/27/21 at 08:26; Stop 06/27/21 at 08:26; Status DC Cefazolin Sodium 3 gm/Dextrose 100 ml @ 200 mls/hr 1X ONCE IV Last administered on 06/27/21at 10:00; Start 06/27/21 at 09:00; Stop 06/27/21 at 09:29; Status DC Lidocaine HCl (Buffered Lidocaine 1%) 3 ml 1X ONCE IJ Last administered on 06/27/21at 09:51; Start 06/27/21 at 08:45; Stop 06/27/21 at 08:49; Status DC Midazolam HCl (Versed) 5 mg 1X ONCE IV Last administered on 06/27/21at 09:50; Start 06/27/21 at 08:45; Stop 06/27/21 at 08:49; Status DC Fentanyl Citrate (Fentanyl 2ml Vial) 100 mcg 1X ONCE IV Last administered on 06/27/21at 09:50; Start 06/27/21 at 08:45; Stop 06/27/21 at 08:49; Status DC Iohexol (Omnipaque 240 Mg/ml) 50 ml 1X ONCE IJ Last administered on 06/27/21at 09:50; Start 06/27/21 at 08:45; Stop 06/27/21 at 08:49; Status DC Midazolam HCl (Versed) 5 mg STK-MED ONCE .ROUTE ; Start 06/27/21 at 08:54; Stop 06/27/21 at 08:54; Status DC Fentanyl Citrate (Fentanyl 2ml Vial) 100 mcg STK-MED ONCE .ROUTE ; Start 06/27/21 at 08:54; Stop 06/27/21 at 08:54; Status DC Active Scripts Active [Hydralazine Hcl] 50 MG Tablet 50 Mg PO TID Norvasc (Amlodipine Besylate) 10 Mg Tablet 10 Mg PO DAILY Reported Potassium Citrate Er (Potassium Citrate) 15 Meq Tablet.er 1 Tab PO BID 30 Days Hydrocodone-Apap 5-325 (Hydrocodone Bit/Acetaminophen) 1 Tab Tablet 2 Tab PO PRN Q6HRS PRN Flomax (Tamsulosin Hcl) 0.4 Mg Cap.er.24h 2 Cap PO QHS Allopurinol 100 Mg Tablet 1 Tab PO BID Ventolin Hfa Inhaler (Albuterol Sulfate) 18 Gm Hfa.aer.ad 2 Puff IH PRN Q4-6HRS Symbicort 160-4.5 Mcg Inhaler (Budesonide/Formoterol Fumarate) 10.2 Gm Hfa.aer.ad 2 Puff IH BID Lantus Solostar (Insulin Glargine,Hum.rec.anlog) 100 Unit/1 Ml Insuln.pen 25 Unit SQ QHS Lumigan (Bimatoprost) 2.5 Ml Drops 1 Drop EACHEYE QHS Vitamin D3 (Cholecalciferol (Vitamin D3)) 1,000 Unit Tablet 2 Tab PO DAILY Tricor (Fenofibrate Nanocrystallized) 145 Mg Tablet 1 Tab PO QHS Actos (Pioglitazone Hcl) 30 Mg Tablet 1 Tab PO DAILY Omeprazole 20 Mg Capsule. 1 Cap PO DAILY Vitals/I & O Vital Sign - Last 24 Hours 06/26/21 06/26/21 06/26/21 06/26/21 19:30 20:00 20:41 21:08 Temp 97.9 97.9 Pulse 69 69 Resp 18 B/P (MAP) 138/66 (90) 138/66 Pulse Ox 95 94 O2 Delivery Room Air Room Air Room Air 06/26/21 06/26/21 06/26/21 06/27/21 22:05 22:35 23:04 03:01 Temp 97.9 98.1 97.9 98.1 Pulse 100 94 Resp 20 20 20 18 B/P (MAP) 124/62 (82) 136/54 (81) Pulse Ox 93 94 O2 Delivery Room Air Room Air Room Air Room Air 06/27/21 06/27/21 06/27/21 06/27/21 06:32 07:00 07:02 07:19 Temp 97.5 97.5 Pulse 81 Resp 20 18 B/P (MAP) 135/63 (87) Pulse Ox 92 95 O2 Delivery Room Air Room Air Room Air Room Air 06/27/21 06/27/21 06/27/21 06/27/21 09:50 10:01 10:30 10:45 Temp 97.4 97.4 Pulse 88 73 67 Resp 23 23 18 18 B/P (MAP) 109/56 (73) 115/58 (77) Pulse Ox 97 97 91 94 O2 Delivery Nasal Cannula Nasal Cannula Room Air Room Air O2 Flow Rate 2.0 2.0 06/27/21 06/27/21 06/27/21 06/27/21 11:00 11:15 11:30 11:59 Pulse 64 62 63 Resp 18 18 18 B/P (MAP) 114/73 (87) 109/70 (83) 111/64 (80) Pulse Ox 92 96 92 O2 Delivery Room Air Room Air Room Air Room Air 06/27/21 06/27/21 06/27/21 06/27/21 12:00 12:30 12:35 13:09 Pulse 67 79 64 Resp 18 18 B/P (MAP) 121/58 (79) 114/65 (81) 114/73 Pulse Ox 93 94 O2 Delivery Room Air Room Air Room Air 06/27/21 06/27/21 06/27/21 06/27/21 13:30 13:39 14:00 15:00 Temp 97.8 97.8 Pulse 101 101 91 Resp 18 18 B/P (MAP) 98/59 (72) 98/59 117/48 (71) Pulse Ox 92 92 O2 Delivery Room Air Room Air Room Air 06/27/21 15:37 O2 Delivery Room Air Intake and Output 06/26/21 06/26/21 06/27/21 15:00 23:00 07:00 Intake Total 240 ml 360 ml Output Total 1225 ml 300 ml Balance -985 ml 60 ml Justifications for Admission Other Justification AMANDA SWIFT MD Jun 27, 2021 16:46
[2021-06-27] MEDS: LATANOPROST 0.005% OPHTH SOLUTION 2.5ML BOTTLE. OD SCH (21:16)
[2021-06-27] MEDS: TAMSULOSIN 0.4 MG CAP.ER.24H. PO SCH (21:16)
[2021-06-27] MEDS: INSULIN GLARGINE SYRINGE. SQ SCH (21:26)
[2021-06-28] MEDS: HYDROcodone/APAP 5/325MG 1 TAB TABLET PO PRN ×4 (00:09→14:54)
[2021-06-28 03:12] VITALS: BP 153/83
[2021-06-28 07:00] VITALS: BP 148/81
[2021-06-28] MEDS: BUDESONIDE 0.5 MG/2 ML NEBU. NEB SCH (07:24)
[2021-06-28] MEDS: ALBUTEROL SULFATE 2.5 MG/3 ML NEBU. NEB SCH ×2 (07:24→11:15)
[2021-06-28 07:43] LABS: BASO % 0 % (0-3); EOS % 1 % (0-3); HEMATOCRIT 40.6 % (39.0-53.0); HEMOGLOBIN 13.8 g/dL (13.0-17.5); LYMPH # 0.5 x10^3/uL (1.0-4.8); LYMPH % 10 % (24-48); MEAN CORPUSCULAR HEMOGLOBIN 32 pg (25-35); MEAN CORPUSCULAR HGB CONC 34 g/dL (31-37); MEAN CORPUSCULAR VOLUME 94 fL (79-100); MONO # 0.3 x10^3/uL (0.0-1.1); MONO % 7 % (0-9); NEUT # 3.7 x10^3/uL (1.8-7.7); NEUT % 82 % (31-73); PLATELET COUNT 173 x10^3/uL (140-400); RED BLOOD COUNT 4.34 x10^6/uL (4.30-5.70); RED CELL DISTRIBUTION WIDTH 15.8 % (11.5-14.5); WHITE BLOOD COUNT 4.6 x10^3/uL (4.0-11.0)
[2021-06-28 07:59] LABS: CALCIUM 8.4 mg/dL (8.5-10.1); GFR 71.9; POTASSIUM 4.4 mmol/L (3.5-5.1)
[2021-06-28] MEDS: INSULIN LISPRO 300 UNITS/3 ML VIAL. SQ SCH ×2 (08:00→12:00)
[2021-06-28] MEDS: PANTOPRAZOLE 40 MG TABLET.DR. PO SCH (08:36)
[2021-06-28] MEDS: PIOGLITAZONE 15 MG TABLET. PO SCH (08:37)
[2021-06-28] MEDS: CHOLECALCIFEROL (VITAMIN D3) 1,000 UNIT TABLET PO SCH (08:37)
[2021-06-28] MEDS: ALLOPURINOL 100 MG TABLET. PO SCH (08:37)
[2021-06-28] MEDS: FENOFIBRATE,MICRONIZED 134 MG CAPSULE PO SCH (08:37)
[2021-06-28] MEDS: MINERAL OIL/PETROLATUM TOPICAL CREAM 113GM JAR. TP SCH (08:39)
[2021-06-28] MEDS ORDERED: methylPREDNISolone 4 MG TABLET. PO SCH (09:00)
[2021-06-28 11:00] VITALS: BP 148/64
[2021-06-28] MEDS ORDERED: CEPH500C PO (11:08)
--- NOTE | 2021-06-28 11:10 | SNU/HH DC ---
DISCHARGE WITH HOME HEALTH DISCHARGE INFORMATION: Discharge Date: Jun 28, 2021 Final Diagnosis: L3 compression fracture, MSSA UTI Condition on Discharge: Stable CODE STATUS: Code Status: Full HOME HEALTH: Face to Face: I certify this patient is under my care and that I, or a nurse practitioner or physician's hair assistant working with me, had a face to face encounter that meets the physician face to face encounter requirements with this patient on 06/28/2021. 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 POST DISCHARGE ORDERS: Activity Instructions for Disc: Activity as tolerated Weight Bearing Status after Di: Full weight bearing DIET AFTER DISCHARGE: ADA CHECKS AFTER DISCHARGE: Checks after discharge: Check blood press - daily, Check blood sugar, ac/hs Comment: L3 FOLLOW-UP: Additional Instructions: Follows ups: UROLOGY - [facility] [address] [place] [address] Neurology: Dr. Bartolome Pham [address] [place], [place] [id number] Dr. Lechuga Ferriday Neurosurgery [facility] [address] [place] [address] TREATMENT/EQUIPMENT ORDERS: Adaptive Equipment Issued: Front wheeled walker CERTIFICATION STATEMENT: Certification Statement: Certification Statement: Based on the above finding, I certify that this patient is confined to the home and needs intermittent penitentiary care, physical therapy and/or speech therapy, or continues to need occupational therapy.~ This patient is under my care, and I have initiated the establishment of the plan of care.~ This patient will be followed by myself or a community physician who will periodically review the plan of care. Home Meds Active Scripts Cephalexin (KEFLEX) 500 Mg Capsule, 1 CAP PO BID for MSSA UTI for 14 Days, #28 CAP Prov:LENIN ELLIOTT MD 06/28/21 [Hydralazine Hcl] 50 MG TABLET No Conflict Check, 50 MG PO TID Prov:LATIA MENDEZ MD 05/06/15 Amlodipine Besylate (NORVASC) 10 Mg Tablet, 10 MG PO DAILY, #30 Prov:LATIA MENDEZ MD 05/06/15 Reported Medications Potassium Citrate (POTASSIUM CITRATE ER) 15 Meq Tablet.er, 1 TAB PO BID for supplement for 30 Days, #60 TAB 0 Refills 06/25/21 Hydrocodone Bit/Acetaminophen (HYDROCODONE-APAP 5-325 ) 1 Tab Tablet, 2 TAB PO PRN Q6HRS PRN for PAIN, TAB 0 Refills 06/25/21 Tamsulosin Hcl (FLOMAX) 0.4 Mg Cap.er.24h, 2 CAP PO QHS for unk, #30 CAP 11 Refills 06/25/21 Allopurinol (ALLOPURINOL) 100 Mg Tablet, 1 TAB PO BID for unk, #30 TAB 5 Refills 06/25/21 Albuterol Sulfate (VENTOLIN HFA INHALER) 18 Gm Hfa.aer.ad, 2 PUFF IH PRN Q4-6HRS for shortness of breath, #1 INHALER 06/07/15 Budesonide/Formoterol Fumarate (SYMBICORT 160-4.5 MCG INHALER) 10.2 Gm Hfa.aer.ad, 2 PUFF IH BID, #10.6 GM 3 Refills 05/03/15 Insulin Glargine,Hum.rec.anlog (LANTUS SOLOSTAR) 100 Unit/1 Ml Insuln.pen, 25 UNIT SQ QHS for DM, #15 ML 3 Refills 05/03/15 Bimatoprost (LUMIGAN) 2.5 Ml Drops, 1 DROP EACHEYE QHS, #7.5 ML 3 Refills 05/03/15 Cholecalciferol (Vitamin D3) (VITAMIN D3) 1,000 Unit Tablet, 2 TAB PO DAILY for supplement, #30 TAB 5 Refills 05/03/15 Fenofibrate Nanocrystallized (TRICOR) 145 Mg Tablet, 1 TAB PO QHS for unk, #30 TAB 5 Refills 05/03/15 Pioglitazone Hcl (ACTOS) 30 Mg Tablet, 1 TAB PO DAILY, #30 TAB 5 Refills 05/03/15 Omeprazole (OMEPRAZOLE) 20 Mg Capsule.dr, 1 CAP PO DAILY, #30 CAP 5 Refills 05/03/15 LENIN ELLIOTT MD Jun 28, 2021 11:10
--- NOTE | 2021-06-28 11:12 | PDOC ---
[employer] PROGRESS NOTE Date of Service DOS: DATE: 06/28/21 TIME: 11:10 Chief Complaint Chief Complaint A/P: Back pain - MRI with L3 compression deformity. 2 prior spine surgeries, appears to have L5 prior surgery Acute to subacute L3 compression deformity with 20 percent height loss - I have d/w IR for kyphoplasty BPH - on flomax. Maher placed for overflow incontinence JESUS MANUEL on CKD - likely vasomotor nephropathy. Cr from 1.4 to 1.2 Severe spinal canal stenosis - neurosurgery consulted, given radicular signs HTN - home meds DM2 - sliding scale, home meds Morbid obesity - counseled on lifestyle modification Staph UTI - started on vancomycin, is MSSA, will cont vancomycin for now FEN - NPO PPX - PPI FULL CODE Dispo - inpatient History of Present Illness History of Present Illness Mr Moore is an 80 yo male who has had 2 previous back surgeries. He also has multiple comorbidities. He basically presented with intractable back pain at [facility]. He notes he has been to pain management over the past couple of months for back pain and right hip pain. He had injection of right hip with no improvement and has had LESI and what he describes as MBB and RFA of spine over the past 2 months with some minimal improvement. He could not get off the toilet on 06/23/2021 after he sat down to urinate and has had worsening pain and stiffness of his lower back and right hip since. We have transferred the patient here for consultation with Dr. Lechuga. 06/25: Patient evaluated examined at bedside. Pain well says pain is ongoing. MRI completed with 1. Acute to subacute L3 compression deformity with 20 percent height loss. No osseous retropulsion. 2. Advanced lumbar spondylosis, worst at L3-4 with severe spinal canal stenosis. 06/26: Overnight pain still difficult to control. Maher placed due to inability to get up to urinate and retention. 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 No l oss of bowel function. Still with right hip pain and pain in right leg radiating down to foot, worse on straight leg raising. Not able to get up out of bed without 10/10 pain. 06/27: To kyphoplasty this morning. Staph in urine returned MSSA. Pain stable, s evere, down right leg and hip. No SOB or CP. L improved able to sit up on his own takes longer with effort. He feels a kyphoplasty improved his pain in his right leg. Maher catheter out today we will do postvoid residual no home visits currently pain regimen as well as 14 days of cephalexin 5 mg twice daily for his MSSA UTI and outpatient referral to urology, neurology follow-up with neurosurgery as needed. Discussed with PMR physician and radiology Vitals/I&O Vitals/I&O: Vital Signs Date Time Temp Pulse Resp B/P (MAP) Pulse Ox O2 Delivery O2 Flow Rate FiO2 06/28/21 10:59 Room Air 06/28/21 08:37 70 148/81 06/28/21 07:24 93 06/28/21 07:00 97.4 18 97.4 06/27/21 10:01 2.0 I & O 06/27/21 06/27/21 06/28/21 15:00 23:00 07:00 Intake Total 240 ml 480 ml Output Total 800 ml 550 ml 1200 ml Balance -800 ml -310 ml -720 ml Physical Exam General: Alert, Oriented X3, Cooperative Heart: Regular rate, Normal S1, Normal S2 Lungs: Clear Abdomen: Normal bowel sounds, Soft, No tenderness Extremities: No edema, Normal pulses Skin: No significant lesion Labs Labs: Laboratory Tests Test 06/27/21 17:17 06/27/21 21:09 06/28/21 06:55 06/28/21 07:13 Glucose (Fingerstick) 128 mg/dL (70-99) 144 mg/dL (70-99) 102 mg/dL (70-99) White Blood Count 4.6 x10^3/uL (4.0-11.0) Red Blood Count 4.34 x10^6/uL (4.30-5.70) Hemoglobin 13.8 g/dL (13.0-17.5) Hematocrit 40.6 % (39.0-53.0) Mean Corpuscular Volume 94 fL (79-100) Mean Corpuscular Hemoglobin 32 pg (25-35) Mean Corpuscular Hemoglobin Concent 34 g/dL (31-37) Red Cell Distribution Width 15.8 % (11.5-14.5) Platelet Count 173 x10^3/uL (140-400) Neutrophils (%) (Auto) 82 % (31-73) Lymphocytes (%) (Auto) 10 % (24-48) Monocytes (%) (Auto) 7 % (0-9) Eosinophils (%) (Auto) 1 % (0-3) Basophils (%) (Auto) 0 % (0-3) Neutrophils # (Auto) 3.7 x10^3/uL (1.8-7.7) Lymphocytes # (Auto) 0.5 x10^3/uL (1.0-4.8) Monocytes # (Auto) 0.3 x10^3/uL (0.0-1.1) Eosinophils # (Auto) 0.0 x10^3/uL (0.0-0.7) Basophils # (Auto) 0.0 x10^3/uL (0.0-0.2) Sodium Level 136 mmol/L (136-145) Potassium Level 4.4 mmol/L (3.5-5.1) Chloride Level 101 mmol/L (98-107) Carbon Dioxide Level 27 mmol/L (21-32) Anion Gap 8 (6-14) Blood Urea Nitrogen 30 mg/dL (8-26) Creatinine 1.0 mg/dL (0.7-1.3) Estimated GFR (Cockcroft-Gault) 71.9 Glucose Level 91 mg/dL (70-99) Calcium Level 8.4 mg/dL (8.5-10.1) Comment Review of Relevant I have reviewed the following items shirin (where applicable) has been applied. Medications: Current Medications Medications (Trade) Dose Ordered Sig/Nigel Route PRN Reason Start Time Stop Time Status Last Admin Dose Admin Methylprednisolone (Medrol) 4 mg BID PO 06/28/21 09:00 06/28/21 21:01 06/28/21 08:37 Vancomycin HCl 2 gm/Sodium Chloride 500 ml @ 250 mls/hr Q24H IV 06/27/21 14:00 06/27/21 14:50 Justifications for Admission Other Justification LENIN ELLIOTT MD Jun 28, 2021 11:12
--- NOTE | 2021-06-28 11:15 | PDOC3 ---
Discharge Summary Visit Information Date of Admission: Jun 24, 2021 Date of Discharge: Jun 28, 2021 Admitting Diagnosis: Back pain, unable to walk Final Diagnosis L3 compression fracture, MSSA UTI Brief Hospital Course Allergies Allergies Coded Allergies Type Severity Reaction Last Updated Verified No Known Drug Allergies 05/03/15 No Vital Signs Vital Signs Date Time Temp Pulse Resp B/P (MAP) Pulse Ox O2 Delivery O2 Flow Rate FiO2 06/28/21 10:59 Room Air 06/28/21 08:37 70 148/81 06/28/21 07:24 93 06/28/21 07:00 97.4 18 97.4 06/27/21 10:01 2.0 Lab Results Laboratory Tests Test 06/26/21 12:19 06/26/21 16:56 06/26/21 21:05 06/27/21 04:20 Glucose (Fingerstick) 107 mg/dL (70-99) 144 mg/dL (70-99) 151 mg/dL (70-99) White Blood Count 4.3 x10^3/uL (4.0-11.0) Red Blood Count 4.19 x10^6/uL (4.30-5.70) Hemoglobin 12.9 g/dL (13.0-17.5) Hematocrit 39.6 % (39.0-53.0) Mean Corpuscular Volume 95 fL (79-100) Mean Corpuscular Hemoglobin 31 pg (25-35) Mean Corpuscular Hemoglobin Concent 33 g/dL (31-37) Red Cell Distribution Width 15.9 % (11.5-14.5) Platelet Count 168 x10^3/uL (140-400) Neutrophils (%) (Auto) 87 % (31-73) Lymphocytes (%) (Auto) 8 % (24-48) Monocytes (%) (Auto) 4 % (0-9) Eosinophils (%) (Auto) 1 % (0-3) Basophils (%) (Auto) 0 % (0-3) Neutrophils # (Auto) 3.7 x10^3/uL (1.8-7.7) Lymphocytes # (Auto) 0.3 x10^3/uL (1.0-4.8) Monocytes # (Auto) 0.2 x10^3/uL (0.0-1.1) Eosinophils # (Auto) 0.0 x10^3/uL (0.0-0.7) Basophils # (Auto) 0.0 x10^3/uL (0.0-0.2) Sodium Level 137 mmol/L (136-145) Potassium Level 4.5 mmol/L (3.5-5.1) Chloride Level 102 mmol/L (98-107) Carbon Dioxide Level 30 mmol/L (21-32) Anion Gap 5 (6-14) Blood Urea Nitrogen 38 mg/dL (8-26) Creatinine 1.0 mg/dL (0.7-1.3) Estimated GFR (Cockcroft-Gault) 71.9 Glucose Level 113 mg/dL (70-99) Calcium Level 8.7 mg/dL (8.5-10.1) Test 06/27/21 08:00 06/27/21 11:08 06/27/21 17:17 06/27/21 21:09 Glucose (Fingerstick) 109 mg/dL (70-99) 93 mg/dL (70-99) 128 mg/dL (70-99) 144 mg/dL (70-99) Test 06/28/21 06:55 06/28/21 07:13 White Blood Count 4.6 x10^3/uL (4.0-11.0) Red Blood Count 4.34 x10^6/uL (4.30-5.70) Hemoglobin 13.8 g/dL (13.0-17.5) Hematocrit 40.6 % (39.0-53.0) Mean Corpuscular Volume 94 fL (79-100) Mean Corpuscular Hemoglobin 32 pg (25-35) Mean Corpuscular Hemoglobin Concent 34 g/dL (31-37) Red Cell Distribution Width 15.8 % (11.5-14.5) Platelet Count 173 x10^3/uL (140-400) Neutrophils (%) (Auto) 82 % (31-73) Lymphocytes (%) (Auto) 10 % (24-48) Monocytes (%) (Auto) 7 % (0-9) Eosinophils (%) (Auto) 1 % (0-3) Basophils (%) (Auto) 0 % (0-3) Neutrophils # (Auto) 3.7 x10^3/uL (1.8-7.7) Lymphocytes # (Auto) 0.5 x10^3/uL (1.0-4.8) Monocytes # (Auto) 0.3 x10^3/uL (0.0-1.1) Eosinophils # (Auto) 0.0 x10^3/uL (0.0-0.7) Basophils # (Auto) 0.0 x10^3/uL (0.0-0.2) Sodium Level 136 mmol/L (136-145) Potassium Level 4.4 mmol/L (3.5-5.1) Chloride Level 101 mmol/L (98-107) Carbon Dioxide Level 27 mmol/L (21-32) Anion Gap 8 (6-14) Blood Urea Nitrogen 30 mg/dL (8-26) Creatinine 1.0 mg/dL (0.7-1.3) Estimated GFR (Cockcroft-Gault) 71.9 Glucose Level 91 mg/dL (70-99) Calcium Level 8.4 mg/dL (8.5-10.1) Glucose (Fingerstick) 102 mg/dL (70-99) Laboratory Tests Test 06/27/21 17:17 06/27/21 21:09 06/28/21 06:55 06/28/21 07:13 Glucose (Fingerstick) 128 mg/dL (70-99) 144 mg/dL (70-99) 102 mg/dL (70-99) White Blood Count 4.6 x10^3/uL (4.0-11.0) Red Blood Count 4.34 x10^6/uL (4.30-5.70) Hemoglobin 13.8 g/dL (13.0-17.5) Hematocrit 40.6 % (39.0-53.0) Mean Corpuscular Volume 94 fL (79-100) Mean Corpuscular Hemoglobin 32 pg (25-35) Mean Corpuscular Hemoglobin Concent 34 g/dL (31-37) Red Cell Distribution Width 15.8 % (11.5-14.5) Platelet Count 173 x10^3/uL (140-400) Neutrophils (%) (Auto) 82 % (31-73) Lymphocytes (%) (Auto) 10 % (24-48) Monocytes (%) (Auto) 7 % (0-9) Eosinophils (%) (Auto) 1 % (0-3) Basophils (%) (Auto) 0 % (0-3) Neutrophils # (Auto) 3.7 x10^3/uL (1.8-7.7) Lymphocytes # (Auto) 0.5 x10^3/uL (1.0-4.8) Monocytes # (Auto) 0.3 x10^3/uL (0.0-1.1) Eosinophils # (Auto) 0.0 x10^3/uL (0.0-0.7) Basophils # (Auto) 0.0 x10^3/uL (0.0-0.2) Sodium Level 136 mmol/L (136-145) Potassium Level 4.4 mmol/L (3.5-5.1) Chloride Level 101 mmol/L (98-107) Carbon Dioxide Level 27 mmol/L (21-32) Anion Gap 8 (6-14) Blood Urea Nitrogen 30 mg/dL (8-26) Creatinine 1.0 mg/dL (0.7-1.3) Estimated GFR (Cockcroft-Gault) 71.9 Glucose Level 91 mg/dL (70-99) Calcium Level 8.4 mg/dL (8.5-10.1) Brief Hospital Course Mr Moore is an 80 yo male who has had 2 previous back surgeries. He also has multiple comorbidities. He basically presented with intractable back pain at [facility]. He notes he has been to pain management over the past couple of months for back pain and right hip pain. He had injection of right hip with no improvement and has had LESI and what he describes as MBB and RFA of spine over the past 2 months with some minimal improvement. He could not get off the toilet on 06/23/2021 after he sat down to urinate and has had worsening pain and stiffness of his lower back and right hip since. We have transferred the patient here for consultation with Dr. Lechuga. 06/25: Patient evaluated examined at bedside. Pain well says pain is ongoing. MRI completed with 1. Acute to subacute L3 compression deformity with 20 percent height loss. No osseous retropulsion. 2. Advanced lumbar spondylosis, worst at L3-4 with severe spinal canal stenosis. 06/26: Overnight pain still difficult to control. Maher placed due to inability to get up to urinate and retention. 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 No loss of bowel function. Still with right hip pain and pain in right leg radiating down to foot, worse on straight leg raising. Not able to get up out of bed without 10/10 pain. 06/27: To kyphoplasty this morning. Staph in urine returned MSSA. Pain stable, severe, down right leg and hip. No SOB or CP. L improved able to sit up on his own takes longer with effort. He feels a kyphoplasty improved his pain in his right leg. Maher catheter out today we will do postvoid residual no home visits currently pain regimen as well as 14 days of cephalexin 5 mg twice daily for his MSSA UTI and outpatient referral to urology, neurology follow-up with neurosurgery as needed. Discussed with PMR physician and radiology Consults: PMR, Neurosurgery, and Interventional Radiology Problem list: Back pain - MRI with L3 compression deformity. 2 prior spine surgeries, appears to have L5 prior surgery. F/u neurosurgery prn outpatient Acute to subacute L3 compression deformity with 20 percent height loss - I have d/w IR for kyphoplasty, did well BPH - on flomax. Maher placed for overflow incontinence. PVR prior to d/c JESUS MANUEL on CKD - likely vasomotor nephropathy. Cr from 1.4 to 1.2 Severe spinal canal stenosis - neurosurgery consulted, given radicular signs HTN - home meds DM2 - sliding scale, home meds Morbid obesity - counseled on lifestyle modification Staph UTI - started on vancomycin, is MSSA, will transition to keflex on d/c. F/u urology outpatient. Advised high mortality related to staph UTI in male, he notes he will have outpatient f/u Greater than 30 minutes spent on d/c home with home health Discharge Information Condition at Discharge: Improved Follow Up: Weeks (1) Disposition/Orders: D/C to Home w/ HH Scheduled Albuterol Sulfate (Ventolin Hfa Inhaler) 18 Gm Hfa.aer.ad, 2 PUFF IH PRN Q4-6HRS for shortness of breath, #1 (Reported) Entered as Reported by: DANIEL SALVADOR on 06/07/15 0711 Last Action: Converted on 06/24/21 1326 by NIAL CASTLE Allopurinol (Allopurinol) 100 Mg Tablet, 1 TAB PO BID for unk, #30 Ref 5 (Reported) Entered as Reported by: MYRANDA BARROSO on 06/25/21916 Last Action: Continued on 06/25/211122 by LENIN VIRGEN MD Amlodipine Besylate (Norvasc) 10 Mg Tablet, 10 MG PO DAILY, #30 Prescribed by: LATIA MENDEZ MD on 05/06/15 1626 Last Action: Reviewed on 06/25/21916 by MYRANDA BARROSO Bimatoprost (Lumigan) 2.5 Ml Drops, 1 DROP EACHEYE QHS, #7.5 Ref 3 (Reported) Entered as Reported by: RHINA STEPHENSON on 05/03/152249 Last Action: Reviewed on 06/25/21916 by MYRANDA BARROSO Budesonide/Formoterol Fumarate (Symbicort 160-4.5 Mcg Inhaler) 10.2 Gm Hfa.aer.ad, 2 PUFF IH BID, #10.6 Ref 3 (Reported) Entered as Reported by: RHINA STEPHENSON on 05/03/152252 Last Action: Reviewed on 06/25/21917 by MYRANDA BARROSO Cephalexin (Keflex) 500 Mg Capsule, 1 CAP PO BID for MSSA UTI for 14 Days, #28 Prescribed by: LENIN ELLIOTT MD on 06/28/21 1108 Cholecalciferol (Vitamin D3) (Vitamin D3) 1,000 Unit Tablet, 2 TAB PO DAILY for supplement, #30 Ref 5 (Reported) Entered as Reported by: RHINA STEPHENSON on 05/03/152248 Last Action: Reviewed on 06/25/21917 by MYRANDA BARROSO Fenofibrate Nanocrystallized (Tricor) 145 Mg Tablet, 1 TAB PO QHS for unk, #30 Ref 5 (Reported) Entered as Reported by: RHINA STEPHENSON on 05/03/152248 Last Action: Reviewed on 06/25/21917 by MYRANDA BARROSO Insulin Glargine,Hum.rec.anlog (Lantus Solostar) 100 Unit/1 Ml Insuln.pen, 25 UNIT SQ QHS for DM, #15 Ref 3 (Reported) Entered as Reported by: RHINA STEPHENSON on 05/03/152250 Last Action: Reviewed on 06/25/21917 by MYRANDA BARROSO Omeprazole (Omeprazole) 20 Mg Capsule.dr, 1 CAP PO DAILY, #30 Ref 5 (Reported) Entered as Reported by: RHINA STEPHENSON on 05/03/152234 Last Action: Reviewed on 06/25/21916 by MYRANDA BARROSO Pioglitazone Hcl (Actos) 30 Mg Tablet, 1 TAB PO DAILY, #30 Ref 5 (Reported) Entered as Reported by: RHINA STEPHENSON on 05/03/152236 Last Action: Reviewed on 06/25/21916 by MYRANDA BARROSO Potassium Citrate (Potassium Citrate Er) 15 Meq Tablet.er, 1 TAB PO BID for supplement for 30 Days, #60 Ref 0 (Reported) Entered as Reported by: MYRANDA BARROSO on 06/25/21916 Last Taken: UNKNOWN on Unknown Date & Time Last Action: HELD on 06/25/211122 by LENIN VIRGEN MD Tamsulosin Hcl (Flomax) 0.4 Mg Cap.er.24h, 2 CAP PO QHS for unk, #30 Ref 11 (Reported) Entered as Reported by: MYRANDA BARROSO on 06/25/21916 Last Action: Continued on 06/25/211122 by LENIN VIRGEN MD [Hydralazine Hcl] 50 MG TABLET, 50 MG PO TID Prescribed by: LATIA MENDEZ MD on 05/06/15 1626 Last Action: Reviewed on 06/25/21916 by MYRANDA BARROSO Scheduled PRN Hydrocodone Bit/Acetaminophen (Hydrocodone-Apap 5-325 ) 1 Tab Tablet, 2 TAB PO PRN Q6HRS PRN for PAIN, Ref 0 (Reported) Entered as Reported by: MYRANDA BARROSO on 06/25/21916 Last Taken: Unknown Dose on Unknown Date & Time Last Action: HELD on 06/25/211122 by LENIN VIRGEN MD Justicifation of Admission Dx: Justifications for Admission: Justification of Admission Dx: Yes LENIN ELLIOTT MD Jun 28, 2021 11:15
--- NOTE | 2021-06-28 12:28 | PDOC ---
PROGRESS NOTES Date of Service DATE: 06/28/21 TIME: 12:26 Subjective Subjective No new complaints. Objective Objective Vital Signs Date Time Temp Pulse Resp B/P (MAP) Pulse Ox O2 Delivery O2 Flow Rate FiO2 06/28/21 11:31 Room Air 06/28/21 11:17 94 06/28/21 11:00 98.5 75 18 148/64 (92) 98.5 06/27/21 10:01 2.0 Intake and Output 06/28/21 07:00 Intake Total 720 ml Output Total 2550 ml Balance -1830 ml Intake Oral 720 ml Output Urine Total 2550 ml Physical Exam Physical Exam He is alert,supine in bed and seems to be in no acute distress. He continues with significant weakness of his shoulder girdle muscles and thenar eminence muscle atrophy. Plan Plan of Care To see how he gets around with therapy and then decide on home with home health or SNF transfer in the next day or so. Comment Review of Relevant I have reviewed the following items shirin (where applicable) has been applied. Labs Laboratory Tests Test 06/26/21 16:56 06/26/21 21:05 06/27/21 04:20 06/27/21 08:00 Glucose (Fingerstick) 144 mg/dL (70-99) 151 mg/dL (70-99) 109 mg/dL (70-99) White Blood Count 4.3 x10^3/uL (4.0-11.0) Red Blood Count 4.19 x10^6/uL (4.30-5.70) Hemoglobin 12.9 g/dL (13.0-17.5) Hematocrit 39.6 % (39.0-53.0) Mean Corpuscular Volume 95 fL (79-100) Mean Corpuscular Hemoglobin 31 pg (25-35) Mean Corpuscular Hemoglobin Concent 33 g/dL (31-37) Red Cell Distribution Width 15.9 % (11.5-14.5) Platelet Count 168 x10^3/uL (140-400) Neutrophils (%) (Auto) 87 % (31-73) Lymphocytes (%) (Auto) 8 % (24-48) Monocytes (%) (Auto) 4 % (0-9) Eosinophils (%) (Auto) 1 % (0-3) Basophils (%) (Auto) 0 % (0-3) Neutrophils # (Auto) 3.7 x10^3/uL (1.8-7.7) Lymphocytes # (Auto) 0.3 x10^3/uL (1.0-4.8) Monocytes # (Auto) 0.2 x10^3/uL (0.0-1.1) Eosinophils # (Auto) 0.0 x10^3/uL (0.0-0.7) Basophils # (Auto) 0.0 x10^3/uL (0.0-0.2) Sodium Level 137 mmol/L (136-145) Potassium Level 4.5 mmol/L (3.5-5.1) Chloride Level 102 mmol/L (98-107) Carbon Dioxide Level 30 mmol/L (21-32) Anion Gap 5 (6-14) Blood Urea Nitrogen 38 mg/dL (8-26) Creatinine 1.0 mg/dL (0.7-1.3) Estimated GFR (Cockcroft-Gault) 71.9 Glucose Level 113 mg/dL (70-99) Calcium Level 8.7 mg/dL (8.5-10.1) Test 06/27/21 11:08 06/27/21 17:17 06/27/21 21:09 06/28/21 06:55 Glucose (Fingerstick) 93 mg/dL (70-99) 128 mg/dL (70-99) 144 mg/dL (70-99) White Blood Count 4.6 x10^3/uL (4.0-11.0) Red Blood Count 4.34 x10^6/uL (4.30-5.70) Hemoglobin 13.8 g/dL (13.0-17.5) Hematocrit 40.6 % (39.0-53.0) Mean Corpuscular Volume 94 fL (79-100) Mean Corpuscular Hemoglobin 32 pg (25-35) Mean Corpuscular Hemoglobin Concent 34 g/dL (31-37) Red Cell Distribution Width 15.8 % (11.5-14.5) Platelet Count 173 x10^3/uL (140-400) Neutrophils (%) (Auto) 82 % (31-73) Lymphocytes (%) (Auto) 10 % (24-48) Monocytes (%) (Auto) 7 % (0-9) Eosinophils (%) (Auto) 1 % (0-3) Basophils (%) (Auto) 0 % (0-3) Neutrophils # (Auto) 3.7 x10^3/uL (1.8-7.7) Lymphocytes # (Auto) 0.5 x10^3/uL (1.0-4.8) Monocytes # (Auto) 0.3 x10^3/uL (0.0-1.1) Eosinophils # (Auto) 0.0 x10^3/uL (0.0-0.7) Basophils # (Auto) 0.0 x10^3/uL (0.0-0.2) Sodium Level 136 mmol/L (136-145) Potassium Level 4.4 mmol/L (3.5-5.1) Chloride Level 101 mmol/L (98-107) Carbon Dioxide Level 27 mmol/L (21-32) Anion Gap 8 (6-14) Blood Urea Nitrogen 30 mg/dL (8-26) Creatinine 1.0 mg/dL (0.7-1.3) Estimated GFR (Cockcroft-Gault) 71.9 Glucose Level 91 mg/dL (70-99) Calcium Level 8.4 mg/dL (8.5-10.1) Test 06/28/21 07:13 06/28/21 11:45 Glucose (Fingerstick) 102 mg/dL (70-99) 123 mg/dL (70-99) Laboratory Tests Test 06/27/21 17:17 06/27/21 21:09 06/28/21 06:55 06/28/21 07:13 Glucose (Fingerstick) 128 mg/dL (70-99) 144 mg/dL (70-99) 102 mg/dL (70-99) White Blood Count 4.6 x10^3/uL (4.0-11.0) Red Blood Count 4.34 x10^6/uL (4.30-5.70) Hemoglobin 13.8 g/dL (13.0-17.5) Hematocrit 40.6 % (39.0-53.0) Mean Corpuscular Volume 94 fL (79-100) Mean Corpuscular Hemoglobin 32 pg (25-35) Mean Corpuscular Hemoglobin Concent 34 g/dL (31-37) Red Cell Distribution Width 15.8 % (11.5-14.5) Platelet Count 173 x10^3/uL (140-400) Neutrophils (%) (Auto) 82 % (31-73) Lymphocytes (%) (Auto) 10 % (24-48) Monocytes (%) (Auto) 7 % (0-9) Eosinophils (%) (Auto) 1 % (0-3) Basophils (%) (Auto) 0 % (0-3) Neutrophils # (Auto) 3.7 x10^3/uL (1.8-7.7) Lymphocytes # (Auto) 0.5 x10^3/uL (1.0-4.8) Monocytes # (Auto) 0.3 x10^3/uL (0.0-1.1) Eosinophils # (Auto) 0.0 x10^3/uL (0.0-0.7) Basophils # (Auto) 0.0 x10^3/uL (0.0-0.2) Sodium Level 136 mmol/L (136-145) Potassium Level 4.4 mmol/L (3.5-5.1) Chloride Level 101 mmol/L (98-107) Carbon Dioxide Level 27 mmol/L (21-32) Anion Gap 8 (6-14) Blood Urea Nitrogen 30 mg/dL (8-26) Creatinine 1.0 mg/dL (0.7-1.3) Estimated GFR (Cockcroft-Gault) 71.9 Glucose Level 91 mg/dL (70-99) Calcium Level 8.4 mg/dL (8.5-10.1) Test 06/28/21 11:45 Glucose (Fingerstick) 123 mg/dL (70-99) Medications Current Medications Amlodipine Besylate (Norvasc) 10 mg DAILY PO Last administered on 06/28/21at 08 :37; Start 06/25/21 at 09:00 Vitamin D (Vitamin D3) 1,000 unit DAILY PO Last administered on 06/28/21at 08:37; Start 06/25/21 at 09:00 Vitamin D (Vitamin D3) 1,000 unit DAILY PO ; Start 06/25/21 at 09:00; Status UNV Tamsulosin HCl (Flomax) 0.4 mg QHS PO Last administered on 06/24/21at 21:17; Start 06/24/21 at 21:00; Stop 06/25/21 at 20:48; Status DC Non-Formulary Medication (Albuterol Sulfate (Ventolin Hfa Inhaler)) 2 puff PRN Q4-6HRS IH ; Start 06/24/21 at 13:30; Status UNV Latanoprost (Xalatan) 1 drop QHS OD Last administered on 06/27/21at 21:16; Start 06/24/21 at 21:00 Non-Formulary Medication (Budesonide/ Formoterol Fumarate (Symbicort 160-4.5 Mcg Inhaler)) 2 puff BID IH ; Start 06/24/21 at 21:00; Status UNV Fenofibrate (Lofibra) 134 mg DAILY PO Last administered on 06/28/21at 08:37; Start 06/25/21 at 09:00 Insulin Glargine (Lantus Syringe) 26 unit QHS SQ Last administered on 06/27/21at 21:26; Start 06/24/21 at 21:00 Pantoprazole Sodium (Protonix) 40 mg DAILYAC PO Last administered on 06/28/21at 08:36; Start 06/25/21 at 07:30 Pioglitazone HCl (Actos) 30 mg DAILY PO Last administered on 06/28/21at 08:37; Start 06/25/21 at 09:00 Hydralazine HCl (Apresoline) 50 mg TID PO Last administered on 06/28/21at 08:37; Start 06/24/21 at 14:00 Budesonide (Pulmicort) 0.5 mg RTBID NEB Last administered on 06/28/21at 07:24; Start 06/24/21 at 20:00 Albuterol Sulfate (Ventolin Neb Soln) 2.5 mg RTQID NEB Last administered on 06/28/21at 11:15; Start 06/24/21 at 16:00 Albuterol Sulfate (Ventolin Neb Soln) 2.5 mg PRN Q6HRS PRN NEB SHORTNESS OF BREATH; Start 06/24/21 at 13:45 Methylprednisolone (Medrol) 24 mg 1X ONCE PO Last administered on 06/24/21at 21:19; Start 06/24/21 at 21:00; Stop 06/24/21 at 21:01; Status DC Methylprednisolone (Medrol) 4 mg BIDPCLD PO ; Start 06/24/21 at 20:00; Stop 06/25/21 at 12:31; Status UNV Methylprednisolone (Medrol) 4 mg TIDPC PO Last administered on 06/25/21at 18:23; Start 06/25/21 at 08:30; Stop 06/25/21 at 17:31; Status DC Methylprednisolone (Medrol) 8 mg QHS PO Last administered on 06/25/21at 20:53; Start 06/25/21 at 21:00; Stop 06/25/21 at 21:01; Status DC Methylprednisolone (Medrol) 4 mg QIDAFTMEAL PO Last administered on 06/26/21at 21:09; Start 06/26/21 at 09:00; Stop 06/26/21 at 21:01; Status DC Methylprednisolone (Medrol) 4 mg TID PO Last administered on 06/27/21at 21:16; Start 06/27/21 at 09:00; Stop 06/27/21 at 21:01; Status DC Methylprednisolone (Medrol) 4 mg BID PO Last administered on 06/28/21at 08:37; Start 06/28/21 at 09:00; Stop 06/28/21 at 21:01 Methylprednisolone (Medrol) 4 mg DAILY PO ; Start 06/29/21 at 09:00; Stop 06/29/21 at 09:01 Acetaminophen/ Hydrocodone Bitart (Lortab 5/325) 1 tab PRN Q4HRS PRN PO MODERATE PAIN 4-6 Last administered on 06/25/21at 04:43; Start 06/24/21 at 23:00 Acetaminophen/ Hydrocodone Bitart (Lortab 5/325) 2 tab PRN Q4HRS PRN PO SEVERE PAIN 7-10 Last administered on 06/28/21at 10:59; Start 06/24/21 at 23:00 Gadoterate Meglumine (Clariscan) 29.2 ml 1X ONCE IVP Last administered on 06/25/21at 11:28; Start 06/25/21 at 11:15; Stop 06/25/21 at 11:16; Status DC Allopurinol (Zyloprim) 100 mg BID PO Last administered on 06/28/21at 08:37; Start 06/25/21 at 12:00 Tamsulosin HCl (Flomax) 0.8 mg QHS PO Last administered on 06/27/21at 21:16; Start 06/25/21 at 21:00 Insulin Human Lispro (HumaLOG) 0-9 UNITS TIDWMEALS SQ ; Start 06/26/21 at 12:00 Dextrose (Dextrose 50%-Water Syringe) 12.5 gm PRN Q15MIN PRN IV SEE COMMENTS; Start 06/26/21 at 09:00 Fentanyl Citrate (Fentanyl 2ml Vial) 25 mcg PRN Q3HRS PRN IVP SEVERE PAIN 7-10; Start 06/26/21 at 13:30 Vancomycin HCl (Vanco Per Pharmacy) 1 each PRN DAILY PRN MC SEE COMMENTS Last administered on 06/27/21at 12:25; Start 06/26/21 at 13:30 Vancomycin HCl 2 gm/Sodium Chloride 500 ml @ 250 mls/hr 1X ONCE IV Last administered on 06/26/21at 14:18; Start 06/26/21 at 14:00; Stop 06/26/21 at 15:59; Status DC Vancomycin HCl (Vancomycin Trough Level) 1 each 1X ONCE MC ; Start 06/28/21 at 13:30; Stop 06/28/21 at 13:31 Vancomycin HCl 2 gm/Sodium Chloride 500 ml @ 250 mls/hr Q24H IV Last administered on 06/27/21at 14:50; Start 06/27/21 at 14:00 Multi-Ingredient Ointment (Hydrocerin, Eucerin Cream) 1 kina BID TP Last administered on 06/28/21at 08:39; Start 06/26/21 at 21:00 Iohexol (Omnipaque 240 Mg/ml) 50 ml STK-MED ONCE .ROUTE ; Start 06/27/21 at 08:26; Stop 06/27/21 at 08:26; Status DC Lidocaine HCl (Buffered Lidocaine 1%) 3 ml STK-MED ONCE .ROUTE ; Start 06/27/21 at 08:26; Stop 06/27/21 at 08:26; Status DC Cefazolin Sodium 3 gm/Dextrose 100 ml @ 200 mls/hr 1X ONCE IV Last administered on 06/27/21at 10:00; Start 06/27/21 at 09:00; Stop 06/27/21 at 09:29; Status DC Lidocaine HCl (Buffered Lidocaine 1%) 3 ml 1X ONCE IJ Last administered on 06/27/21at 09:51; Start 06/27/21 at 08:45; Stop 06/27/21 at 08:49; Status DC Midazolam HCl (Versed) 5 mg 1X ONCE IV Last administered on 06/27/21at 09:50; Start 06/27/21 at 08:45; Stop 06/27/21 at 08:49; Status DC Fentanyl Citrate (Fentanyl 2ml Vial) 100 mcg 1X ONCE IV Last administered on 06/27/21at 09:50; Start 06/27/21 at 08:45; Stop 06/27/21 at 08:49; Status DC Iohexol (Omnipaque 240 Mg/ml) 50 ml 1X ONCE IJ Last administered on 06/27/21at 09:50; Start 06/27/21 at 08:45; Stop 06/27/21 at 08:49; Status DC Midazolam HCl (Versed) 5 mg STK-MED ONCE .ROUTE ; Start 06/27/21 at 08:54; Stop 06/27/21 at 08:54; Status DC Fentanyl Citrate (Fentanyl 2ml Vial) 100 mcg STK-MED ONCE .ROUTE ; Start 06/27/21 at 08:54; Stop 06/27/21 at 08:54; Status DC Active Scripts Active Keflex (Cephalexin) 500 Mg Capsule 1 Cap PO BID 14 Days [Hydralazine Hcl] 50 MG Tablet 50 Mg PO TID Norvasc (Amlodipine Besylate) 10 Mg Tablet 10 Mg PO DAILY Reported Potassium Citrate Er (Potassium Citrate) 15 Meq Tablet.er 1 Tab PO BID 30 Days Hydrocodone-Apap 5-325 (Hydrocodone Bit/Acetaminophen) 1 Tab Tablet 2 Tab PO PRN Q6HRS PRN Flomax (Tamsulosin Hcl) 0.4 Mg Cap.er.24h 2 Cap PO QHS Allopurinol 100 Mg Tablet 1 Tab PO BID Ventolin Hfa Inhaler (Albuterol Sulfate) 18 Gm Hfa.aer.ad 2 Puff IH PRN Q4-6HRS Symbicort 160-4.5 Mcg Inhaler (Budesonide/Formoterol Fumarate) 10.2 Gm Hfa.aer.ad 2 Puff IH BID Lantus Solostar (Insulin Glargine,Hum.rec.anlog) 100 Unit/1 Ml Insuln.pen 25 Unit SQ QHS Lumigan (Bimatoprost) 2.5 Ml Drops 1 Drop EACHEYE QHS Vitamin D3 (Cholecalciferol (Vitamin D3)) 1,000 Unit Tablet 2 Tab PO DAILY Tricor (Fenofibrate Nanocrystallized) 145 Mg Tablet 1 Tab PO QHS Actos (Pioglitazone Hcl) 30 Mg Tablet 1 Tab PO DAILY Omeprazole 20 Mg Capsule.dr 1 Cap PO DAILY Vitals/I & O Vital Sign - Last 24 Hours 06/27/21 06/27/21 06/27/21 06/27/21 12:30 12:35 13:09 13:30 Pulse 79 64 101 Resp 18 18 B/P (MAP) 114/65 (81) 114/73 98/59 (72) Pulse Ox 94 92 O2 Delivery Room Air Room Air Room Air 06/27/21 06/27/21 06/27/21 06/27/21 13:39 14:00 15:00 15:37 Temp 97.8 97.8 Pulse 101 91 Resp 18 B/P (MAP) 98/59 117/48 (71) Pulse Ox 92 O2 Delivery Room Air Room Air Room Air 06/27/21 06/27/21 06/27/21 06/27/21 17:54 18:35 19:40 19:51 Temp 98.0 98.0 Pulse 102 Resp 20 B/P (MAP) 131/59 (83) Pulse Ox 94 O2 Delivery Room Air Room Air Room Air Room Air 06/27/21 06/27/21 06/27/21 06/27/21 20:03 20:03 21:16 23:13 Temp 97.1 97.1 Pulse 102 102 Resp 20 B/P (MAP) 131/59 166/69 (101) Pulse Ox 96 96 93 O2 Delivery Room Air Room Air Room Air 06/28/21 06/28/21 06/28/21 06/28/21 00:09 00:39 03:12 05:09 Temp 97.7 97.7 Pulse 76 Resp 20 20 20 20 B/P (MAP) 153/83 (106) Pulse Ox 93 O2 Delivery Room Air Room Air Room Air Room Air 06/28/21 06/28/21 06/28/21 06/28/21 05:39 07:00 07:24 08:00 Temp 97.4 97.4 Pulse 70 Resp 20 18 B/P (MAP) 148/81 (103) Pulse Ox 94 93 O2 Delivery Room Air Room Air Room Air Room Air 06/28/21 06/28/21 06/28/21 06/28/21 08:37 08:37 10:59 11:00 Temp 98.5 98.5 Pulse 70 70 75 Resp 18 B/P (MAP) 148/81 148/81 148/64 (92) Pulse Ox 94 O2 Delivery Room Air Room Air 06/28/21 06/28/21 11:17 11:31 Pulse Ox 94 O2 Delivery Room Air Room Air Intake and Output 06/27/21 06/27/21 06/28/21 15:00 23:00 07:00 Intake Total 240 ml 480 ml Output Total 800 ml 550 ml 1200 ml Balance -800 ml -310 ml -720 ml Justifications for Admission Other Justification AMANDA SWIFT MD Jun 28, 2021 12:28
[2021-06-28] MEDS: VANCOMYCIN 2 GM in IV NORMAL SALINE 500ML BAG 500 ML IV SCH (14:00)
[2021-06-28 14:53] VITALS: BP 148/64
--- NOTE | 2021-06-28 15:17 | NUR ---
Pt discharged home with home health. Discharge instructions and prescriptions discussed. Pt verbalized understanding. IV removed. Pt belongings were packed. Assisted to wheelchair and was secured in car with family.
[2021-06-29] MEDS ORDERED: methylPREDNISolone 4 MG TABLET. PO SCH (09:00)
[2021-06-29] MEDS ORDERED: HYDR-2761 PO (12:14)
--- NOTE | 2021-06-29 12:17 | SNU/HH DC ---
DISCHARGE ORDERS DISCHARGE INFORMATION: DISCHARGE DATE: Jun 28, 2021 FINAL DIAGNOSIS L3 compression fracture, UTI CONDITION ON DISCHARGE: Stable CODE STATUS: Code Status: Full ASSISTED: SNF STAY <30 DAYS: Yes POST DISCHARGE ORDERS: ACTIVITY ORDERS: Activity as tolerated, Avoid exertion WEIGHT BEARING STATUS: Full weight bearing BATHING ORDERS: No Tub Bath until see Dr. CARREON AFTER DISCHARGE: COLLEEN WOUND/INCISION CARE: May get incision wet CHECKS AFTER DISCHARGE: CHECKS AFTER DISCHARGE: Check blood press - daily, Check blood sugar, ac/hs COMMENTS: L3 FOLLOW-UP: PHYSICIAN FOLLOW-UP: UROLOGY NEEDED ADDITIONAL FOLLOW-UP: PRIMARY CARE PROVIDER IN 1 WEEKS Additional Instructions: Call to schedule outpatient with [facility] in 2 weeks [facility] [address] [place] [id number] Call to schedule: Dr. Lechuga in 2 weeks [facility] [address] [address] TREATMENT/EQUIPMENT ORDERS: ADAPTIVE EQUIPMENT NEEDED: Front wheeled walker Physical Therapy For: Evalulation/Treatment Occupational Therapy For: Evaluation/Treatment DISCHARGE MEDICATIONS: Home Meds Active Scripts Hydrocodone Bit/Acetaminophen (HYDROCODONE-APAP 5-325 ) 1 Tab Tablet, 1-2 TAB PO PRN Q6HRS PRN for PAIN for 6 Days, #48 TAB 0 Refills Prov:LENIN ELLIOTT MD 06/29/21 Cephalexin (KEFLEX) 500 Mg Capsule, 1 CAP PO BID for MSSA UTI for 14 Days, #28 CAP Prov:LENIN ELLIOTT MD 06/28/21 [Hydralazine Hcl] 50 MG TABLET No Conflict Check, 50 MG PO TID Prov:LATIA MENDEZ MD 05/06/15 Amlodipine Besylate (NORVASC) 10 Mg Tablet, 10 MG PO DAILY, #30 Prov:LATIA MENDEZ MD 05/06/15 Reported Medications Potassium Citrate (POTASSIUM CITRATE ER) 15 Meq Tablet.er, 1 TAB PO BID for supplement for 30 Days, #60 TAB 0 Refills 06/25/21 Tamsulosin Hcl (FLOMAX) 0.4 Mg Cap.er.24h, 2 CAP PO QHS for unk, #30 CAP 11 Refills 06/25/21 Allopurinol (ALLOPURINOL) 100 Mg Tablet, 1 TAB PO BID for unk, #30 TAB 5 Refills 06/25/21 Insulin Glargine,Hum.rec.anlog (LANTUS SOLOSTAR) 100 Unit/1 Ml Insuln.pen, 25 UNIT SQ QHS for DM, #15 ML 3 Refills 05/03/15 Bimatoprost (LUMIGAN) 2.5 Ml Drops, 1 DROP EACHEYE QHS, #7.5 ML 3 Refills 05/03/15 Cholecalciferol (Vitamin D3) (VITAMIN D3) 1,000 Unit Tablet, 2 TAB PO DAILY for supplement, #30 TAB 5 Refills 05/03/15 Fenofibrate Nanocrystallized (TRICOR) 145 Mg Tablet, 1 TAB PO QHS for unk, #30 TAB 5 Refills 05/03/15 Pioglitazone Hcl (ACTOS) 30 Mg Tablet, 1 TAB PO DAILY, #30 TAB 5 Refills 05/03/15 Omeprazole (OMEPRAZOLE) 20 Mg Capsule., 1 CAP PO DAILY, #30 CAP 5 Refills 05/03/15 LENIN ELLIOTT MD Jun 29, 2021 12:16
--- NOTE | 2021-06-30 08:47 | RAD ---
PROCEDURES: 1. Fluoroscopic guided L3 kyphoplasty. 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 The procedure, risks, and complications, to include bleeding, infection, cement embolization, damage to the vertebral endplates, compression of the spinal canal (due to hemorrhage or cement) and cement extrusion were explained to the patient and they understood and wished to proceed. Consent form sign ed. The lumbosacral region was prepped and draped using maximal sterile technique and 1% Xylocaine used f or local topical anesthesia and deep periosteal anesthesia. Pre-procedural antibiotics were administered. Sedation: Conscious sedation was performed for 43 minutes. Sedation was carried out while the patien t was continually monitored by a member of the Radiology nursing staff. Continual cardiopulmonary mo nitoring was carried out during the procedure. The patient tolerated the procedure well and there we re no immediate complications. Utilizing careful fluoroscopic biplane positioning, the L3 pedicles were identified. Using a left sided unilateral approach, a trocar needle was advanced into the anterior third of the L 3 vertebral body. Needle placement was confirmed in both the AP and lateral projections. Next the introducer stylet was removed. A kyphoplasty balloon was placed into the vertebral body and the coaxial needle was withdrawn. The balloon was inflated under fluoroscopic guidance to insure that there was no damage to the vertebral body endplates. When an adequate cavity had been formed by the ballon it was deflated and removed through the coaxial needle. Under very careful biplane fluoroscopic guidance, polymethylmethacrylate was carefully injected into the L3 vertebral body filling the cavity formed by the balloon as well as some of the surrounding tra beculae. Minimal cement noted likely extending beneath the central L2-3 disc. No significant extravas ation identified. Following the cement injections, the needle was removed, pressure placed, and hemos tasis obtained. Sterile dressings were applied. Fluoroscopy time: 6.5 minutes minutes Dose area product 44 [place] centimeters squared IMPRESSION: Fluoroscopically guided L3 Kyphoplasty Electronically signed by: Alex Shannon MD (06/30/2021 8:44 AM) [id number]
[2021-07-06] MEDS ORDERED: HYDR-2761 PO (12:09)
[2021-07-14] MEDS ORDERED: HYDR-2761 PO (10:17)
== END 2021-06-28 15:20 | disposition home health service (06) | DRG 515 ==
LOC: 4 NORTH 12:37
PROVIDERS: ADMIT Internal Medicine; ATTEND Internal Medicine
PROC: 0QS03ZZ Reposition Lumbar Vertebra, Percutaneous Approach (ICD-10-PCS; principal; 2021-06-28)
PROC: 0QU03JZ Supplement Lumbar Vertebra with Synthetic Substitute, Percutaneous Approach (ICD-10-PCS; 2021-06-28)
DX: M48.56XA Collapsed vertebra, not elsewhere classified, lumbar region, initial encounter for fracture (principal); N17.0 Acute kidney failure with tubular necrosis; N39.0 Urinary tract infection, site not specified; Z68.41 Body mass index [BMI] 40.0-44.9, adult; N18.9 Chronic kidney disease, unspecified; M48.061 Spinal stenosis, lumbar region without neurogenic claudication; B95.61 Methicillin susceptible Staphylococcus aureus infection as the cause of diseases classified elsewhere; E11.22 Type 2 diabetes mellitus with diabetic chronic kidney disease; E66.01 Morbid (severe) obesity due to excess calories; E78.5 Hyperlipidemia, unspecified; G56.20 Lesion of ulnar nerve, unspecified upper limb; G89.29 Other chronic pain; G56.03 Carpal tunnel syndrome, bilateral upper limbs; M47.816 Spondylosis without myelopathy or radiculopathy, lumbar region; I12.9 Hypertensive chronic kidney disease with stage 1 through stage 4 chronic kidney disease, or unspecified chronic kidney disease; M51.36 Other intervertebral disc degeneration, lumbar region; M75.102 Unspecified rotator cuff tear or rupture of left shoulder, not specified as traumatic; N39.490 Overflow incontinence; N40.0 Benign prostatic hyperplasia without lower urinary tract symptoms; Z82.0 Family history of epilepsy and other diseases of the nervous system; Z83.3 Family history of diabetes mellitus; Z96.653 Presence of artificial knee joint, bilateral; K21.9 Gastro-esophageal reflux disease without esophagitis; H40.9 Unspecified glaucoma; M19.90 Unspecified osteoarthritis, unspecified site; Z20.822 Contact with and (suspected) exposure to COVID-19
CPT/HCPCS: 22514; 36415; 72158; 80048; 82962; 85007; 85025; 94640; 94760; 99152; 99153; A9575; C1713; J0690; J1815; J2250; J3010; J3370; J3490; J7040; J7060; J7509; Q9966; 97110-GP; 97116-GP; 97530-GP; 97535-GO; G0378; J7613; J7626

== ENCOUNTER → 2021-07-10 | Outpatient (CLI) | payer MEDICARE, BC ==
[2021-06-28 14:53] VITALS: BP 148/64
[~2021-07-10] MED LIST changes: +ALLO100T PO; +CEPH500C PO; +HYDR-2761 PO; +POTA15TA9 PO
--- NOTE | 2021-07-11 08:17 | RAD ---
EXAM: AP, lateral and lumbosacral spot views with lateral flexion/extension views of the lumbar spine DATE: 07/10/2021 5:38 PM INDICATION: Reason: L3 compresion FX pt unable to bend his back very much / Spl. Instructions: / Hi story: COMPARISON: No Prior FINDINGS: Vertebroplasty changes L3. Vertebral body heights are preserved. Advanced facet degenerative changes are seen. Severe L4-5 and L5-S1 disc height loss. Moderate L2-3 and L3-4 disc height loss. Trace anterolisthesi s of L2 on L3 and L3 on L4. On the mild range of motion provided on the flexion and extension images, no dynamic instability. IMPRESSION: 1. Multilevel spondylosis as above 2. Negative acute fracture. Vertebroplasty changes L3. 3. Anterolisthesis of L2 on L3 and L3 and L4 without dynamic instability. Electronically signed by: Chidi Burris MD (07/11/2021 8:14 AM) [id number]
== END ==
PROVIDERS: ATTEND Neurological Surgery
DX: M47.816 Spondylosis without myelopathy or radiculopathy, lumbar region (principal); M43.16 Spondylolisthesis, lumbar region; M51.37 Other intervertebral disc degeneration, lumbosacral region; Z98.890 Other specified postprocedural states
CPT/HCPCS: 72100; 72120

== ENCOUNTER → 2021-07-19 | Outpatient (CLI) | payer MEDICARE, BC ==
[2021-06-28 14:53] VITALS: BP 148/64
--- NOTE | 2021-07-19 12:56 | RAD ---
EXAM: Cervical spine MRI without contrast. HISTORY: Upper extremity numbness. TECHNIQUE: Multiplanar, multisequence magnetic resonance imaging of the cervical spine was performed without contrast. COMPARISON: None. FINDINGS: There is levoscoliosis centered at the cervical thoracic junction. There is cervical kyphos is. There is 2 mm anterolisthesis of C3 on C4 and 2 mm retrolisthesis of C4 on C5. There is 2 mm ante rolisthesis of C7 on T1, T1 on T2, T2 on T3 and T3 on T4. There is multilevel endplate remodeling wit h disc space narrowing, osteophytosis and Schmorl's node formation. There is multilevel facet arthrop athy. There is deformation of the cervical spinal cord at all cervical levels due to significant cent ral canal stenosis. There is no convincing spinal cord edema or myelomalacia. There is no suspicious osseous lesion. There are few small cysts with surrounding pannus involving the dens. There is no bryan picious osseous lesion. There is no acute or subacute fracture. At C2-C3, there is a broad-based posterior central disc protrusion with minimal inferior extrusion beverly perimposed on endplate remodeling. There is mild right and severe left facet arthropathy. There is bu ckling of the ligamentum flavum. There is uncovertebral arthropathy. There is severe right foraminal stenosis. There is deformation of the spinal cord and moderate to severe central canal stenosis measu ring 6.7 mm anteroposteriorly dimension. At C3-C4, there is a disc bulge and endplate osteophytosis. There is severe bilateral facet arthropat hy. There is uncovertebral arthropathy. There is buckling of the ligamentum flavum. There is severe b ilateral foraminal stenosis. There is deformation of the spinal cord and severe central canal stenosi s measuring 4.1 mm in anteroposterior dimension. At C4-C5, there is a disc bulge and endplate osteophytosis. There is moderate bilateral facet arthrop athy. There is uncovertebral arthropathy. There is severe bilateral foraminal stenosis. There is defo rmation of the spinal cord and severe central canal stenosis measuring 5.7 mm in anterior posterior d imension. At C5-C6, there is a disc bulge and endplate osteophytosis. There is moderate bilateral facet arthrop athy. There is uncovertebral arthropathy. There is severe right and moderate left foraminal stenosis. There is deformation the spinal cord and moderate to severe central canal stenosis measuring 6.8 mm in anterior posterior dimension. At C6-C7, there is a disc bulge and endplate osteophytosis. There is mild bilateral facet arthropathy . There is uncovertebral arthropathy. There is marked severe right and severe left foraminal stenosis . There is mild central canal stenosis measuring 7.8 mm in anterior posterior dimension. IMPRESSION: Severe multilevel degenerative change involving the cervical spine, described in detail a randy. This results in severe foraminal and central canal stenosis at multiple levels. There is deform ation the spinal cord at multiple levels due to aforementioned stenosis. No convincing spinal cord ed beto or myelomalacia is seen. Electronically signed by: Cassandra Palacio MD (07/19/2021 12:54 PM) [id number]
== END ==
LOC: MRI 10:19
PROVIDERS: ATTEND Neurological Surgery
DX: M47.812 Spondylosis without myelopathy or radiculopathy, cervical region (principal); M50.21 Other cervical disc displacement, high cervical region; M48.02 Spinal stenosis, cervical region; M40.202 Unspecified kyphosis, cervical region; M43.12 Spondylolisthesis, cervical region; M25.78 Osteophyte, vertebrae
CPT/HCPCS: 72141

== ENCOUNTER → 2021-09-15 | Outpatient (CLI) | payer MEDICARE, BC ==
[2021-08-24 08:47] VITALS: BP 135/63
[~2021-09-15] MED LIST changes: +AMIO200T53 PO; +ASCO500T3 PO; +BENZ1LOZ48 PO; +DOCU-109 PO; +FURO-68 PO; +GUAI237L83 PO; +LINE600T12 PO; +MENT3.5O TP; +METO-239 PO; +POLY17PO29 PO; +ZINC220C5 PO
--- NOTE | 2021-09-15 14:45 | CARD ---
MR#: [id number] Date of Study: 09/15/2021 Ordering Physician: MARGUERITE RESTREPO, Referring Physician: MARGUERITE RESTREPO, Tech: Mabel Lopez [facility] AP[facility] REPORT EXAM: Two-dimensional and M-mode echocardiogram with Doppler and color Doppler. Other Information Quality : Technically LimitedHR: 55bpm Rhythm : Atrial Fibrillation INDICATION Atrial Fibrillation Cardiac Disease: CAD RISK FACTORS Hypertension Obesity Hyperlipidemia Diabetes 2D DIMENSIONS RVDd4.5 (2.9-3.5cm)Left Atrium(2D)4.0 (1.6-4.0cm) IVSd1.0 (0.7-1.1cm)Aortic Root(2D)2.9 (2.0-3.7cm) LVDd5.2 (3.9-5.9cm)LVOT Diameter2.3 (1.8-2.4cm) PWd1.1 (0.7-1.1cm)LVDs2.9 (2.5-4.0cm) FS (%) 44.4 %SV96.9 ml LVEF(%)75.3 (>50%) Aortic Valve AoV Peak Abdullahi.165.7cm/sAoV VTI34.7cm AO Peak GR.11.0mmHgLVOT Peak Abdullahi.97.5cm/s AO Mean GR.6mmHgAVA (VMAX)2.39cm2 Tricuspid Valve TR P. Uwlilzzv262da/sTR Peak Gr.39mmHg LEFT VENTRICLE The left ventricle is normal size. There is normal left ventricular wall thickness. The left ventricu lar systolic function is normal. Estimated ejection fraction 50-55%. There is normal LV segmental wa ll motion. RIGHT VENTRICLE The right ventricle is normal size. The right ventricle is borderline hypertrophied. The right ventri cular systolic function is normal. ATRIA The left atrium size is normal. The right atrium is mildly dilated. The interatrial septum is intact with no evidence for an atrial septal defect or patent foramen ovale as noted on 2-D or Doppler imagi ng. AORTIC VALVE The aortic valve is normal in structure and function. Doppler and Color Flow revealed no significant aortic regurgitation. There is no significant aortic valvular stenosis. MITRAL VALVE The mitral valve is normal in structure and function. There is no evidence of mitral valve prolapse. There is no mitral valve stenosis. Doppler and Color Flow revealed no mitral valve regurgitation note d. TRICUSPID VALVE The tricuspid valve is normal in structure and function. Doppler and Color Flow revealed mild tricusp id regurgitation. There is no tricuspid valve stenosis. PULMONIC VALVE Doppler and Color Flow revealed no pulmonic valvular regurgitation. GREAT VESSELS The aortic root is normal in size. The ascending aorta is normal in size. The IVC is dilated and daphne apses <50% with inspiration. PERICARDIAL EFFUSION There is no evidence of significant pericardial effusion. Critical Notification Critical Value: No <Conclusion> The left ventricular systolic function is normal. Estimated ejection fraction 50-55%. There is normal LV segmental wall motion. Mild tricuspid regurgitation. There is no evidence of significant pericardial effusion. Signed by : Wesley James, Electronically Approved : 09/15/2021 14:44:43
== END ==
LOC: ECHO 12:14
PROVIDERS: ATTEND Internal Medicine Cardiovascular Disease
DX: I48.91 Unspecified atrial fibrillation (principal)
CPT/HCPCS: 93306

== ENCOUNTER 2021-10-21 08:11 | Inpatient (IN) | payer MEDICARE, BC ==
[~2021-10-21] VITALS: Ht 177.8 cm; Wt 149.9 kg
[2021-10-21 08:56] LABS: CALCIUM 8.8 mg/dL (8.5-10.1); CREATININE 1.4 mg/dL (0.7-1.3); GFR 48.6; POTASSIUM 4.1 mmol/L (3.5-5.1)
[2021-10-21 09:04] LABS: BASO % 1 % (0-3); EOS # 0.3 x10^3/uL (0.0-0.7); EOS % 9 % (0-3); HEMATOCRIT 33.4 % (39.0-53.0); HEMOGLOBIN 10.7 g/dL (13.0-17.5); LYMPH # 0.9 x10^3/uL (1.0-4.8); LYMPH % 28 % (24-48); MEAN CORPUSCULAR HEMOGLOBIN 31 pg (25-35); MEAN CORPUSCULAR HGB CONC 32 g/dL (31-37); MEAN CORPUSCULAR VOLUME 97 fL (79-100); MONO # 0.2 x10^3/uL (0.0-1.1); MONO % 7 % (0-9); NEUT # 1.7 x10^3/uL (1.8-7.7); NEUT % 55 % (31-73); PLATELET COUNT 186 x10^3/uL (140-400); RED BLOOD COUNT 3.44 x10^6/uL (4.30-5.70); RED CELL DISTRIBUTION WIDTH 18.5 % (11.5-14.5); WHITE BLOOD COUNT 3.1 x10^3/uL (4.0-11.0)
--- NOTE | 2021-10-21 09:24 | RAD ---
CT head without contrast: Reason for examination: Fell with injury to head and neck. On Eliquis. Helical images were obtained through the brain with no contrast administered. Reconstruction was perf ormed in sagittal and coronal planes. Ventricular systems are prominent but symmetric and consistent with patient's advanced age and genera lized cerebral atrophy. No midline shift is seen. There is no evidence of intracranial hemorrhage, in farct, mass or edema. There is some mild patchy deep white matter changes consistent with microvascul ar ischemia. The paranasal sinuses and mastoid air cells are clear. No acute skull abnormality is see n. IMPRESSION: Cerebral atrophy with some mild microvascular ischemic type changes in the deep white matter. No acute intracranial abnormality evident. CT cervical spine without contrast: Helical images were obtained through the cervical spine from the skull base through the thoracic apic es with no contrast administered. Reconstruction was performed in sagittal and coronal planes. The C1 ring is intact. The odontoid process is intact and normally centered between the lateral gene s of C1. The vertebral bodies of the cervical spine are normally aligned anteriorly and posteriorly. No acute fracture or subluxation is seen. Posterior elements are intact. Note is made of some nuchal ligament calcification. There are severe degenerative changes with loss of disc height from C3 throug h T2. Hypertrophic changes off the posterior endplates causing spinal stenosis at the C3-4, C4-5 and C5-6 disc levels. Prevertebral soft tissues are normal. IMPRESSION: No acute abnormalities evident in the cervical spine. Severe degenerative changes from C3 through T2 with moderate spinal stenosis due to the hypertrophic spurring from C3 through C6. Exposure: One or more of the following individualized dose reduction techniques were utilized for thi s examination: 1. Automated exposure control 2. Adjustment of the mA and/or kV according to patient size 3. Use of iterative reconstruction technique. Electronically signed by: Gudelia Robles MD (10/21/2021 9:21 AM) [id number]
--- NOTE | 2021-10-21 09:32 | RAD ---
AP pelvis radiograph to include AP and lateral radiographs of the right hip 10/21/2021 CLINICAL HISTORY: Fall with right hip pain. A portable AP digital radiograph of the pelvis to include both hips was obtained . Portable AP and cr osstable lateral digital radiographs of the right hip were obtained. There is diffuse osteopenia of t he visualized bony structures. No pelvic bone fractures seen. An acute subcapital fracture of the rig ht femoral neck is seen. Internal rotation of the distal fracture fragment is seen. Mild superior dis placement and medial angulation of the distal fracture fragment is noted. No dislocation is seen. The left hip is intact. IMPRESSION: Acute subcapital fracture of the right femoral neck. Electronically signed by: Eliezer Adamson MD (10/21/2021 9:29 AM) [id number]
--- NOTE | 2021-10-21 09:35 | RAD ---
EXAM: CHEST ONE VIEW. HISTORY: Fall, hypoxia. COMPARISON: 08/17/2021. FINDINGS: A frontal view of the chest is obtained. Bibasilar predominant interstitial infiltrates have increased. Small pleural effusions cannot be excl uded. There is no pneumothorax. The heart is not enlarged. There are atherosclerotic calcifications o f the aorta. IMPRESSION: 1. Bibasilar infiltrates are consistent with atypical pneumonia or mild pulmonary edema. Electronically signed by: Lucretia Powers MD (10/21/2021 9:32 AM) [facility]
--- NOTE | 2021-10-21 09:46 | PHYS DOC ---
Past Medical History Past Medical History: Diabetes-Type II, GERD, High Cholesterol, Hypertension, Renal Failure Additional Past Medical Histor: EZIO,FALLS,GOUT, BPH Past Surgical History: Appendectomy, Knee Replacement Additional Past Surgical Histo: back Smoking Status: Never Smoker Alcohol Use: None Drug Use: None General Adult EDM: Chief Complaint: HIP PAIN HPI: HPI: Patient is a 81 year old male with history of A. fib on Eliquis, HTN, DM, CKD who presents from the [facility] with a mechanical fall and right hip pain. Patient reportedly got tangled up in his bed sheets and tripped falling onto his right hip. Immediate right hip pain. Did strike his head. Denies LOC, headache, nausea/vomiting, or confusion. Denies neck pain, or upper extremity weakness/paresthesias. Denies any other areas of pain aside from his right hip. Last p.o. intake was 6 PM on 10/20 Last Eliquis dose was yesterday evening. Has not received any morning medications. Review of Systems: Review of Systems: Constitutional: Denies fever or chills. [] Eyes: Denies change in visual acuity. [] HENT: Denies nasal congestion or sore throat. [] Respiratory: Denies cough or shortness of breath. [] Cardiovascular: Denies chest pain or edema. [] GI: Denies abdominal pain, nausea, vomiting, bloody stools or diarrhea. [] : Denies dysuria. [] Musculoskeletal: Reports right hip pain Integument: Denies rash. [] Neurologic: Denies headache, focal weakness or sensory changes. [] ] Psychiatric: Denies depression or anxiety. [] Heart Score: C/O Chest Pain: No Current Medications: Current Medications Medications (Trade) Dose Ordered Sig/[facility] Start Time Stop Time Status Last Admin Dose Admin Morphine Sulfate (Morphine Sulfate) 2 mg PRN Q2HR PRN 10/21/21 09:45 10/22/21 09:44 Allergies: Allergies: Allergies Coded Allergies Type Severity Reaction Last Updated Verified No Known Drug Allergies 05/03/15 No Physical Exam: PE: Constitutional: Well developed, well nourished, no acute distress, non-toxic appearance. [] HENT: Normocephalic, atraumatic, bilateral external ears normal, oropharynx moist, no oral exudates, nose normal. [] Eyes: PERRLA, EOMI, conjunctiva normal, no discharge. [] Neck: Normal range of motion, no midline tenderness, supple, no stridor. [] Cardiovascular:Heart rate regular rhythm, no murmur [] Lungs & Thorax: Bilateral breath sounds clear to auscultation. No chest wall tenderness to palpation or crepitus. [] Abdomen: Bowel sounds normal, soft, no tenderness, no masses, no pulsatile masses. [] Skin: Warm, dry, no erythema, no rash. [] Back: No T or L-spine tenderness Extremities: Old scattered bruising in the upper extremities. Right lower extremity in slight external rotation. Pain referred to the right hip with logroll of the right lower extremity. 2+ DP pulse. Neurologic: Alert and oriented X 3, normal motor function, normal sensory function, no focal deficits noted. [] Psychologic: Affect normal, judgement normal, mood normal. [] Current Patient Data: Labs: Laboratory Tests Test 10/21/21 08:35 White Blood Count 3.1 x10^3/uL (4.0-11.0) L Red Blood Count 3.44 x10^6/uL (4.30-5.70) L Hemoglobin 10.7 g/dL (13.0-17.5) L Hematocrit 33.4 % (39.0-53.0) L Mean Corpuscular Volume 97 fL (79-100) Mean Corpuscular Hemoglobin 31 pg (25-35) Mean Corpuscular Hemoglobin Concent 32 g/dL (31-37) Red Cell Distribution Width 18.5 % (11.5-14.5) H Platelet Count 186 x10^3/uL (140-400) Neutrophils (%) (Auto) 55 % (31-73) Lymphocytes (%) (Auto) 28 % (24-48) Monocytes (%) (Auto) 7 % (0-9) Eosinophils (%) (Auto) 9 % (0-3) H Basophils (%) (Auto) 1 % (0-3) Neutrophils # (Auto) 1.7 x10^3/uL (1.8-7.7) L Lymphocytes # (Auto) 0.9 x10^3/uL (1.0-4.8) L Monocytes # (Auto) 0.2 x10^3/uL (0.0-1.1) Eosinophils # (Auto) 0.3 x10^3/uL (0.0-0.7) Basophils # (Auto) 0.0 x10^3/uL (0.0-0.2) Sodium Level 141 mmol/L (136-145) Potassium Level 4.1 mmol/L (3.5-5.1) Chloride Level 102 mmol/L (98-107) Carbon Dioxide Level 31 mmol/L (21-32) Anion Gap 8 (6-14) Blood Urea Nitrogen 33 mg/dL (8-26) H Creatinine 1.4 mg/dL (0.7-1.3) H Estimated GFR (Cockcroft-Gault) 48.6 Glucose Level 92 mg/dL (70-99) Calcium Level 8.8 mg/dL (8.5-10.1) Laboratory Tests 10/21/21 08:35 Laboratory Tests 10/21/21 08:35 Vital Signs: Vital Signs Date Time Temp Pulse Resp B/P (MAP) Pulse Ox O2 Delivery O2 Flow Rate FiO2 10/21/21 08:59 71 22 143/64 (90) 97 Nasal Cannula 2.0 10/21/21 08:18 98.2 98.2 EKG: EKG: Atrial fibrillation. Rate 60. Radiology/Procedures: Radiology/Procedures: [] Impression: [facility] [address] [place], [place] [id number] IMAGING REPORT Signed PATIENT: ALEXEI POSADAS MACCOUNT: [id number] : 1940 LOCATION: ER AGE: 81 SEX: M EXAM STATUS: PRE ER ORD. PHYSICIAN: SILVA ALFORD MD REASON: Fall, on eliquis PROCEDURE: CT HEAD AND CERVICAL SPINE WO CT head without contrast: Reason for examination: Fell with injury to head and neck. On Eliquis. Helical images were obtained through the brain with no contrast administered. Reconstruction was performed in sagittal and coronal planes. Ventricular systems are prominent but symmetric and consistent with patient's advanced age and generalized cerebral atrophy. No midline shift is seen. There is no evidence of intracranial hemorrhage, infarct, mass or edema. There is some mild patchy deep white matter changes consistent with microvascular ischemia. The paranasal sinuses and mastoid air cells are clear. No acute skull abnormality is seen. IMPRESSION: Cerebral atrophy with some mild microvascular ischemic type changes in the deep white matter. No acute intracranial abnormality evident. CT cervical spine without contrast: Helical images were obtained through the cervical spine from the skull base through the thoracic apices with no contrast administered. Reconstruction was performed in sagittal and coronal planes. The C1 ring is intact. The odontoid process is intact and normally centered between the lateral masses of C1. The vertebral bodies of the cervical spine are normally aligned anteriorly and posteriorly. No acute fracture or subluxation i s seen. Posterior elements are intact. Note is made of some nuchal ligament calcification. There are severe degenerative changes with loss of disc height from C3 through T2. Hypertrophic changes off the posterior endplates causing spinal stenosis at the C3-4, C4-5 and C5-6 disc levels. Prevertebral soft tissues are normal. IMPRESSION: No acute abnormalities evident in the cervical spine. Severe degenerative changes from C3 through T2 with moderate spinal stenosis due to the hypertrophic spurring from C3 through C6. Exposure: One or more of the following individualized dose reduction techniques were utilized for this examination: 1. Automated exposure control 2. Adjustment of the mA and/or kV according to patient size 3. Use of iterative reconstruction technique. Electronically signed by: Sera Oseguera MD (10/21/2021 9:21 AM) [id number] DICTATED and SIGNED BY: SERA OSEGUERA MD DATE: 10/21/21 [id number] [facility] [address] [place] [address] IMAGING REPORT Signed PATIENT: ALEXEI POSADASCOUNT: [id number] : 1940 LOCATION: ER AGE: 81 SEX: M EXAM STATUS: PRE ER ORD. PHYSICIAN: SILVA ALFORD MD REASON: FALL, HYPOXIA PROCEDURE: CHEST AP ONLY EXAM: CHEST ONE VIEW. HISTORY: Fall, hypoxia. COMPARISON: 08/17/2021. FINDINGS: A frontal view of the chest is obtained. Bibasilar predominant interstitial infiltrates have increased. Small pleural effusions cannot be excluded. There is no pneumothorax. The heart is not enlarged. There are atherosclerotic calcifications of the aorta. IMPRESSION: 1. Bibasilar infiltrates are consistent with atypical pneumonia or mild pulmonary edema. Electronically signed by: Lucretia Powers MD (10/21/2021 9:32 AM) [facility] DICTATED and SIGNED BY: SILVA POWERS MD DATE: 10/21/21 [id number] [facility] [address] [place] [address] IMAGING REPORT Signed PATIENT: ALEXEI POSADASCOUNT: [id number] : 1940 LOCATION: ER AGE: 81 SEX: M EXAM STATUS: PRE ER ORD. PHYSICIAN: SILVA ALFORD MD REASON: Fall, R hip pain PROCEDURE: HIP RIGHT 2V WITH PELVIS AP pelvis radiograph to include AP and lateral radiographs of the right hip 10/21/2021 CLINICAL HISTORY: Fall with right hip pain. A portable AP digital radiograph of the pelvis to include both hips was obtained . Portable AP and crosstable lateral digital radiographs of the right hip were obtained. There is diffuse osteopenia of the visualized bony structures. No pelvic bone fractures seen. An acute subcapital fracture of the right femoral neck is seen. Internal rotation of the distal fracture fragment is seen. Mild superior displacement and medial angulation of the distal fracture fragment is noted. No dislocation is seen. The left hip is intact. IMPRESSION: Acute subcapital fracture of the right femoral neck. Electronically signed by: Eliezer Adamson MD (10/21/2021 9:29 AM) [id number] DICTATED and SIGNED BY: ELIEZER ADAMSON MD DATE: 10/21/21 [id number] Course & Med Decision Making: Course & Med Decision Making Pertinent Labs and Imaging studies reviewed. (See chart for details) Patient 81-year-old male with history of A. fib on Eliquis, COPD, HTN, DM, CKD who presents with right hip pain after a mechanical fall. Hemodynamically stable. Intermittently desatting to the mid 80s on room air. Recovers with 2 L/min nasal cannula. Patient complains only of right hip pain and has no other evidence of thoracicoabdominal injury. CT head and neck negative. Chest x-ray does show some evidence of volume overload. Right hip shows a femoral neck fracture. Discussed admission with hospitalist, Dr. Bashir. Patient will be kept n.p.o. Orthopedics consult paged. [phone] David Disclaimer: David Disclaimer: This electronic medical record was generated, in whole or in part, using a voice recognition dictation system. Departure Departure Impression: Primary Impression: Fracture of femoral neck, right Additional Impression: Respiratory failure with hypoxia Disposition: ADMITTED INPATIENT Admitting Physician: RADHA SHANKS) Condition: STABLE Referrals: YAJAIRA MALONE MD (PCP) SILVA ALFORD MD Oct 21, 2021 09:46
[2021-10-21] MEDS: MORPHINE SULFATE 2 MG/ML INJ. IVP PRN ×3 (09:48→15:54)
--- NOTE | 2021-10-21 10:07 | PDOC2 ---
CONSULT Date of Consult Date of Consult DATE: 10/21/21 TIME: 10:06 History of Present Illness Reason for Visit: This 81-year old retired man who uses a walker was recuperating at [facility] after a recent hospitalization and fell. He complains of hip pain, was brought in by ambulance from the [facility]. X-rays show an acute displaced subcapital fracture of the right femoral neck. I discussed the case with ER physician. The Hospitalist admitted the patient and I was consulted for Orthopedic Surgery. The patient says his has Alzheimer's disease, and had to go to a senior living recently. The patient was recovering from recent spine fracture and describes a vertebroplasty, and ran out of days at residential so he then went to the [facility]. He said he was getting some sweat pants out of the closet, and somehow tangled up with the sliding door and fell to the ground. Past Medical History Cardiovascular: HTN Family History Family History: No Significant Social History ALCOHOL: rare Drugs: None Lives: Residential Current Problem List Problem List Problems Medical Problems: (1) Fracture of femoral neck, right Status: Acute (2) Respiratory failure with hypoxia Status: Acute Current Medications Current Medications Current Medications Morphine Sulfate (Morphine Sulfate) 2 mg PRN Q2HR PRN IVP PAIN Last administered on 10/21/21at 09:48; Start 10/21/21 at 09:45; Stop 10/22/21 at 09:44 Active Scripts Active Zyvox (Linezolid) 600 Mg Tablet 600 Mg PO BID 10 Days Metoprolol Succinate ( Xl ) (Metoprolol Succinate) 25 Mg Tab.er.24h 12.5 Mg PO D AILY 30 Days Amiodarone Hcl 200 Mg Tablet 200 Mg PO DAILY 30 Days Hydrocodone-Apap 5-325 (Hydrocodone Bit/Acetaminophen) 1 Tab Tablet 2 Tab PO PRN Q6HRS PRN [Hydralazine Hcl] 50 MG Tablet 50 Mg PO TID Norvasc (Amlodipine Besylate) 10 Mg Tablet 10 Mg PO DAILY Reported Zinc Sulfate 50 Mg Capsule 220 Mg PO DAILY Ascorbic Acid 500 Mg Tablet 500 Mg PO DAILY Robitussin Cough-Chest Dm Liq (Guaifenesin/Dextromethorphan) 237 Ml Liquid 10 Ml PO PRN Q4HRS PRN Miralax (Polyethylene Glycol 3350) 17 Gm Powd.pack 1 Packet PO DAILY 2 Days dissolve in water Lasix (Furosemide) 40 Mg Tablet 1 Tab PO DAILY 30 Days Colace (Docusate Sodium) 100 Mg Capsule 100 Mg PO PRN DAILY PRN Cepacol Sore Throat Lozenge (Benzocaine/Menthol) 1 Each Lozenge 1 Tab PO Q4HRS 3 Days Calmoseptine Ointment (Menthol/Zinc Oxide) 3.5 Gm Oint.pack 3.5 Gm TP BID Potassium Citrate Er (Potassium Citrate) 15 Meq Tablet.er 1 Tab PO BID 30 Days Flomax (Tamsulosin Hcl) 0.4 Mg Cap.er.24h 2 Cap PO QHS Allopurinol 100 Mg Tablet 1 Tab PO BID Lantus Solostar (Insulin Glargine,Hum.rec.anlog) 100 Unit/1 Ml Insuln.pen 10 Unit SQ QHS Lumigan (Bimatoprost) 2.5 Ml Drops 1 Drop EACHEYE QHS Vitamin D3 (Cholecalciferol (Vitamin D3)) 1,000 Unit Tablet 2 Tab PO DAILY Tricor (Fenofibrate Nanocrystallized) 145 Mg Tablet 1 Tab PO QHS Actos (Pioglitazone Hcl) 30 Mg Tablet 1 Tab PO DAILY Omeprazole 20 Mg Capsule.dr 1 Cap PO DAILY Allergies Allergies: Coded Allergies: No Known Drug Allergies (Unverified , 05/03/15) ROS General: YES: Fatigue PSYCHOLOGICAL ROS: No: Memory difficulties Eyes: No Double vision HEENT: No: Heacaches Hematological and Lymphatic: YES: Brusing; No: Bleeding Problems, Blood Clots Respiratory: No: Cough, Shortness of breath Cardiovascular: No Chest Pain, No Palpitations Gastrointestinal: No Nausea, No Vomiting, No Diarrhea, No Constipation Genitourinary: No Dysuria, No Hematuria Musculoskeletal: Yes Joint Pain Neurological: Yes Impaired Coord/balance; No Headaches Physical Exam General: Alert, Cooperative HEENT: Atraumatic Heart: Regular rate Abdomen: Soft Extremities: Other (Bilateral lower extremity show pitting edema. There is tenderness of the right hip. There is pain with any attempted motion. The skin is intact without ecchymosis despite the Eliquis although his body habitus might mask deep ecchymosis. The extremity is shortened and externally rotated. Light touch sensation is intact at the foot and toes. Capillary refill and pulses are intact without evidence of ischemia. Slight dorsiflexion and plantarflexion are possible without evidence of sciatic nerve injury.) Vitals VITALS Vital Signs Date Time Temp Pulse Resp B/P (MAP) Pulse Ox O2 Delivery O2 Flow Rate FiO2 10/21/21 09:48 22 97 Nasal Cannula 2.0 10/21/21 08:59 71 143/64 (90) 10/21/21 08:18 98.2 98.2 Labs Labs Laboratory Tests Test 10/21/21 08:35 10/21/21 09:30 White Blood Count 3.1 x10^3/uL (4.0-11.0) Red Blood Count 3.44 x10^6/uL (4.30-5.70) Hemoglobin 10.7 g/dL (13.0-17.5) Hematocrit 33.4 % (39.0-53.0) Mean Corpuscular Volume 97 fL (79-100) Mean Corpuscular Hemoglobin 31 pg (25-35) Mean Corpuscular Hemoglobin Concent 32 g/dL (31-37) Red Cell Distribution Width 18.5 % (11.5-14.5) Platelet Count 186 x10^3/uL (140-400) Neutrophils (%) (Auto) 55 % (31-73) Lymphocytes (%) (Auto) 28 % (24-48) Monocytes (%) (Auto) 7 % (0-9) Eosinophils (%) (Auto) 9 % (0-3) Basophils (%) (Auto) 1 % (0-3) Neutrophils # (Auto) 1.7 x10^3/uL (1.8-7.7) Lymphocytes # (Auto) 0.9 x10^3/uL (1.0-4.8) Monocytes # (Auto) 0.2 x10^3/uL (0.0-1.1) Eosinophils # (Auto) 0.3 x10^3/uL (0.0-0.7) Basophils # (Auto) 0.0 x10^3/uL (0.0-0.2) Sodium Level 141 mmol/L (136-145) Potassium Level 4.1 mmol/L (3.5-5.1) Chloride Level 102 mmol/L (98-107) Carbon Dioxide Level 31 mmol/L (21-32) Anion Gap 8 (6-14) Blood Urea Nitrogen 33 mg/dL (8-26) Creatinine 1.4 mg/dL (0.7-1.3) Estimated GFR (Cockcroft-Gault) 48.6 Glucose Level 92 mg/dL (70-99) Calcium Level 8.8 mg/dL (8.5-10.1) SARS-CoV-2 Antigen (Rapid) Negative (NEGATIVE) Laboratory Tests Test 10/21/21 08:35 10/21/21 09:30 White Blood Count 3.1 x10^3/uL (4.0-11.0) Red Blood Count 3.44 x10^6/uL (4.30-5.70) Hemoglobin 10.7 g/dL (13.0-17.5) Hematocrit 33.4 % (39.0-53.0) Mean Corpuscular Volume 97 fL (79-100) Mean Corpuscular Hemoglobin 31 pg (25-35) Mean Corpuscular Hemoglobin Concent 32 g/dL (31-37) Red Cell Distribution Width 18.5 % (11.5-14.5) Platelet Count 186 x10^3/uL (140-400) Neutrophils (%) (Auto) 55 % (31-73) Lymphocytes (%) (Auto) 28 % (24-48) Monocytes (%) (Auto) 7 % (0-9) Eosinophils (%) (Auto) 9 % (0-3) Basophils (%) (Auto) 1 % (0-3) Neutrophils # (Auto) 1.7 x10^3/uL (1.8-7.7) Lymphocytes # (Auto) 0.9 x10^3/uL (1.0-4.8) Monocytes # (Auto) 0.2 x10^3/uL (0.0-1.1) Eosinophils # (Auto) 0.3 x10^3/uL (0.0-0.7) Basophils # (Auto) 0.0 x10^3/uL (0.0-0.2) Sodium Level 141 mmol/L (136-145) Potassium Level 4.1 mmol/L (3.5-5.1) Chloride Level 102 mmol/L (98-107) Carbon Dioxide Level 31 mmol/L (21-32) Anion Gap 8 (6-14) Blood Urea Nitrogen 33 mg/dL (8-26) Creatinine 1.4 mg/dL (0.7-1.3) Estimated GFR (Cockcroft-Gault) 48.6 Glucose Level 92 mg/dL (70-99) Calcium Level 8.8 mg/dL (8.5-10.1) SARS-CoV-2 Antigen (Rapid) Negative (NEGATIVE) Images Images Report reviewed, images independently reviewed. PATIENT: ALEXEI POSADAS ACCOUNT: [id number] : 1940 LOCATION: ER AGE: 81 SEX: M EXAM STATUS: PRE ER ORD. PHYSICIAN: SILVA ALFORD MD REASON: Fall, R hip pain PROCEDURE: HIP RIGHT 2V WITH PELVIS AP pelvis radiograph to include AP and lateral radiographs of the right hip 10/21/2021 CLINICAL HISTORY: Fall with right hip pain. A portable AP digital radiograph of the pelvis to include both hips was obtained . Portable AP and crosstable lateral digital radiographs of the right hip were obtained. There is diffuse osteopenia of the visualized bony structures. No pelvic bone fractures seen. An acute subcapital fracture of the right femoral neck is seen. Internal rotation of the distal fracture frag ment is seen. Mild superior displacement and medial angulation of the distal fracture fragment is noted. No dislocation is seen. The left hip is intact. IMPRESSION: Acute subcapital fracture of the right femoral neck. Electronically signed by: Eliezer Adamson MD (10/21/2021 9:29 AM) [id number] Assessment/Plan Assessment/Plan He will benefit from surgery but I recommend waiting > 48 hours from Eliquis dosed on 10/20 at 6 pm, so safest to delay surgery until Saturday to minimize risk of transfusion/hemorrhage. The patient and I discussed the risks benefits and alternatives of a cemented hip hemiarthroplasty. The advantages are early range of motion and better pain control. Generally the patient can be up fully weightbearing as tolerated on the first postoperative day. The risks include risks of dislocation, infection, blood clots, leg length discrepancy, neurovascular injury particularly to the sciatic nerve causing a foot drop, and other potential surgical or anesthetic complications. The alternatives of surgery are bedrest for treatment which is generally not well tolerated due to the high risks of bedsores, pneumonia, blood clots, and frequently with nonoperative treatment for hip fractures. He stated understanding of the risks benefits and alternatives and desired to proceed with surgery. I discussed with him the increased risk of bleeding due to his Eliquis. His body habitus shows morbid obesity, which makes the surgery more difficult, frequently a longer incision, and likely more blood loss just due to the body habitus alone. In my experience even waiting 48 hours after the Eliquis there is often increased bleeding from what would be expected. I will do a type and screen to make sure we are prepared. I printed out his x-ray and gave him a copy, as well as some diagrams from the Internet of hip hemiarthroplasty. Surgery is planned at 1230 on 10/23/2021. RICHARD ALVARADO MD Oct 21, 2021 10:07
--- NOTE | 2021-10-21 11:31 | HP ---
DATE OF SERVICE: 10/21/2021 ADMIT DATE: 10/21/2021 CHIEF COMPLAINT: Fall with hip pain. HISTORY OF PRESENT ILLNESS: The patient is a pleasant elderly male who fell. He complains of hip pain, was brought in by ambulance from the [facility]. We did some imaging. He has got an acute subcapital fracture of the right femoral neck. I discussed the case with ER physician. We are going to admit the patient and consult Orthopedic Surgery. PAST MEDICAL HISTORY: Recent sepsis just a couple of months ago, tachycardia couple of months ago, diabetes, GERD, hyperlipidemia, hypertension, renal failure, EZIO, falls, gout, BPH, appendectomy, knee replacement, back surgery. ALLERGIES: None. FAMILY HISTORY: Diabetes. SOCIAL HISTORY: Does not drink, smoke or take drugs. MEDICATIONS: Reviewed. Please refer to the MRAD. REVIEW OF SYSTEMS: GENERAL: No history of weight change, weakness or fevers. SKIN: No bruising, hair changes or rashes. EYES: No blurred, double or loss of vision. NOSE AND THROAT: No history of nosebleeds, hoarseness or sore throat. HEART: No history of palpitations, chest pain or shortness of breath on exertion. LUNGS: Denies cough, hemoptysis, wheezing or shortness of breath. GASTROINTESTINAL: Denies changes in appetite, nausea, vomiting, diarrhea or constipation. GENITOURINARY: No history of frequency, urgency, hesitancy or nocturia. NEUROLOGIC: Denies history of numbness, tingling, tremor or weakness. PSYCHIATRIC: No history of panic, anxiety or depression. ENDOCRINE: No history of heat or cold intolerance, polyuria or polydipsia. EXTREMITIES: He complains of right leg pain. PHYSICAL EXAMINATION: VITALS: Within normal limits and are stable. GENERAL: No apparent distress. Alert and oriented. HEENT: Normal cephalic atraumatic, external auditory canals are patent EYES: Extraocular muscles are intact, pupils are equally round and reactive to light and accommodation MUSCULOSKELETAL: Well developed, well nourished, good range of motion ENDOCRINE: No thyromegaly was palpated LYMPHATICS: No cervical chain or axillary nodes were noted HEMATOPOIETIC: No bruising NECK: Supple, no JVD, no thyromegaly was noted. LUNGS: Clear to auscultation in all lung traylor without rhonchi or wheezing. HEART: RRR, S1, S2 present. Peripheral pulses intact, no obvious murmurs were noted. ABDOMEN: Soft, nontender. Positive bowel sounds no organomegaly, normal bowel sounds. EXTREMITIES: Both legs are externally rotated. NEUROLOGIC: Normal speech, normal tone. A and O x 3, moves all extremities, no obvious focal deficits. PSYCHIATRIC: Normal affect, normal mood. Stable. SKIN: No ulcerations or rashes, good skin turgor, no jaundice. VASCULAR: Good capillary refill, neurovascular bundle appears to be intact. LABORATORY DATA: Chest x-ray shows possible atypical pneumonia. COVID testing is negative. White count is 3, hemoglobin 10.7, platelets 186. Electrolytes are normal other than BUN 33, creatinine 1.4. ASSESSMENT AND PLAN: Fall with hip fracture with acute on chronic renal failure, abnormal chest x-ray. The patient has been admitted. We will consult Orthopedics. Consult Nephrology. IV fluids. Home meds. Deep venous thrombosis prophylaxis. Full code. Postoperatively, he will need wound care and physical therapy and will need to go to skilled at some point. REBECA DR: Ellie TID: [id number]
[2021-10-21 12:19] VITALS: BP 118/35
[2021-10-21] MEDS ORDERED: ASPI325T8 PO (12:51)
[2021-10-21] MEDS ORDERED: GUAI-108 PO (13:27)
[2021-10-21] MEDS ORDERED: APIX5TAB PO (13:27)
[2021-10-21] MEDS ORDERED: INSU100V8 SQ (13:27)
[2021-10-21] MEDS ORDERED: NYST15CR2 TP (13:27)
[2021-10-21] MEDS ORDERED: NYST1POW5 MC (13:27)
[2021-10-21] MEDS ORDERED: HYDR-2761 PO (13:27)
[2021-10-21] MEDS ORDERED: OMEP20CA16 PO (13:27)
--- NOTE | 2021-10-21 15:31 | EKG ---
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
[2021-10-21] MEDS ORDERED: DOCUSATE SODIUM 100 MG CAPSULE. PO PRN (17:00)
[2021-10-21] MEDS ORDERED: DEXTROMETHORPHAN PO PRN (17:00)
[2021-10-21] MEDS ORDERED: GUAIFENESIN PO PRN (17:00)
[2021-10-21] MEDS ORDERED: guaiFENesin DM 600/30MG 1 TAB TAB.ER.12H PO PRN (17:00)
[2021-10-21] MEDS ORDERED: HYDROcodone/APAP 5/325MG 1 TAB TABLET PO PRN (17:00)
[2021-10-21] MEDS: HYDROcodone/APAP 5/325MG 1 TAB TABLET PO PRN (17:29)
[2021-10-21] MEDS ORDERED: ONDANSETRON PF 4 MG/2 ML VIAL. IVP PRN (17:45)
[2021-10-21] MEDS ORDERED: ACETAMINOPHEN 325 MG TABLET. PO PRN (17:45)
[2021-10-21] MEDS ORDERED: DEXTROSE 50% 25 GM / 50ML DISP.SYRIN. IV PRN (17:45)
[2021-10-21] MEDS ORDERED: IV DEXTROSE 5% 250 ML BAG. IV PRN (17:45)
[2021-10-21 19:00] VITALS: BP 132/53
[2021-10-21] MEDS ORDERED: BENZOCAINE/MENTHOL LOZENGE. PO PRN (20:00)
[2021-10-21] MEDS: ALLOPURINOL 100 MG TABLET. PO SCH (20:46)
[2021-10-21] MEDS: TAMSULOSIN 0.4 MG CAP.ER.24H. PO SCH (20:47)
[2021-10-21] MEDS: POTASSIUM CITRATE 10 MEQ TABLET.ER PO SCH (20:47)
[2021-10-21] MEDS: ZINC OXIDE 20% TOPICAL OINTMENT 28GM TUBE. TP SCH (20:47)
[2021-10-21] MEDS: LATANOPROST 0.005% OPHTH SOLUTION 2.5ML BOTTLE. OU SCH (20:47)
[2021-10-21] MEDS: INSULIN GLARGINE SYRINGE. SQ SCH ×2 (20:48→20:56)
[2021-10-21] MEDS ORDERED: NYSTATIN 100,000 UNIT/GM TOPICAL CREAM 15GM TUBE. TP PRN (21:00)
[2021-10-21 22:34] VITALS: BP 127/57
[2021-10-21 23:00] LABS: BILIRUBIN,URINE NEGATIVE (NEG); CLARITY,URINE CLEAR; COLOR,URINE YELLOW; NITRITE,URINE NEGATIVE (NEG); PROTEIN,URINE NEGATIVE (NEG-TRACE)
[2021-10-21 23:17] LABS: AMORPHOUS SEDIMENT,UR PRESENT /HPF; BACTERIA,URINE MODERATE /HPF (0-FEW); RBC,URINE 0 /HPF (0-2)
[2021-10-22] MEDS: HYDROcodone/APAP 5/325MG 1 TAB TABLET PO PRN ×4 (00:21→18:51)
[2021-10-22 02:40] VITALS: BP 108/51
--- NOTE | 2021-10-22 03:30 | CONS ---
DATE OF CONSULTATION: 10/21/2021 NEPHROLOGY CONSULTATION REQUESTING PHYSICIAN: Ailyn Bashir DO REASON FOR CONSULTATION: Chronic kidney disease, stage III. HISTORY OF PRESENT ILLNESS: This is a pleasant 81-year-old gentleman with a history of hypertension and chronic kidney disease, stage III. The patient currently admitted after sustaining a fall and was found to have right femoral neck fracture. He is being evaluated by orthopedic surgery for the same. PAST MEDICAL HISTORY: Hypertension, chronic kidney disease stage III, diabetes mellitus, GE reflux disease, hyperlipidemia, BPH, obstructive sleep apnea, appendectomy, knee replacement, back surgery, degenerative arthritis. ALLERGIES: None are noted. MEDICATIONS: Reviewed per medication list. FAMILY HISTORY: Noncontributory. SOCIAL HISTORY: The patient resides independently. Does not drink alcohol. Does not smoke or use tobacco products. REVIEW OF SYSTEMS: Other than fatigue, fall, pain from fracture and mild shortness of breath, remainder of review of systems is unremarkable. PHYSICAL EXAMINATION: GENERAL APPEARANCE: The patient is awake, conversant. He is obese. HEENT: Clear. NECK: No increased JVD. LUNGS: Decreased breath sound at bases. CARDIAC: Without S3 or rub. ABDOMEN: Obese. Bowel sounds are present. Nontender. EXTREMITIES: Without edema. NEUROPSYCHIATRIC: Follows appropriately. Good attention to details. LABORATORY DATA: White count 3.1, hemoglobin 10.7, hematocrit 33.4, platelets 186. Sodium 141, potassium 4.1, chloride 102, CO2 of 31, BUN 33, creatinine 1.4, GFR is 48.6. IMPRESSION: 1. Chronic kidney disease, stage III secondary to hypertensive nephrosclerosis and diabetes mellitus as well as nephron loss with age and chronic interstitial nephritis. 2. Right femoral neck fracture. RECOMMENDATIONS: 1. Fracture per Orthopedic Surgery. 2. Maintain fluid and electrolyte balance and we will follow with you. ALYSHA/AJITH/ELI DR: Aileen TID: [id number]
[2021-10-22 07:00] VITALS: BP 114/48
[2021-10-22 07:08] LABS: BASO # 0.1 x10^3/uL (0.0-0.2); BASO % 2 % (0-3); EOS # 0.4 x10^3/uL (0.0-0.7); EOS % 8 % (0-3); HEMATOCRIT 31.6 % (39.0-53.0); HEMOGLOBIN 10.1 g/dL (13.0-17.5); LYMPH # 0.6 x10^3/uL (1.0-4.8); LYMPH % 13 % (24-48); MEAN CORPUSCULAR HEMOGLOBIN 31 pg (25-35); MEAN CORPUSCULAR HGB CONC 32 g/dL (31-37); MEAN CORPUSCULAR VOLUME 98 fL (79-100); MONO # 0.3 x10^3/uL (0.0-1.1); MONO % 6 % (0-9); NEUT # 3.4 x10^3/uL (1.8-7.7); NEUT % 72 % (31-73); PLATELET COUNT 160 x10^3/uL (140-400); RED BLOOD COUNT 3.23 x10^6/uL (4.30-5.70); RED CELL DISTRIBUTION WIDTH 17.7 % (11.5-14.5); WHITE BLOOD COUNT 4.8 x10^3/uL (4.0-11.0)
[2021-10-22 07:34] LABS: ALBUMIN 2.9 g/dL (3.4-5.0); ALBUMIN/GLOBULIN RATIO 1.1 (1.0-1.7); CALCIUM 8.7 mg/dL (8.5-10.1); CREATININE 1.2 mg/dL (0.7-1.3); GFR 58.1; POTASSIUM 4.3 mmol/L (3.5-5.1); TOTAL BILIRUBIN 0.5 mg/dL (0.2-1.0); TOTAL PROTEIN 5.6 g/dL (6.4-8.2)
[2021-10-22 07:44] LABS: PROTHROMBIN TIME PATIENT 14.7 SEC (11.7-14.0)
[2021-10-22] MEDS: IPRATRPIUM/ALBUTEROL 0.5/2.5MG 3 ML NEBU. NEB SCH ×4 (07:48→20:35)
[2021-10-22] MEDS: BUDESONIDE 0.5 MG/2 ML NEBU. NEB SCH ×2 (07:48→20:35)
[2021-10-22] MEDS: INSULIN LISPRO 300 UNITS/3 ML VIAL. SQ SCH ×3 (08:00→17:00)
--- NOTE | 2021-10-22 08:14 | CONS ---
DATE OF CONSULTATION: 10/22/2021 REASON FOR CONSULTATION: I was asked to see this 81-year-old gentleman for abnormal chest x-ray. HISTORY OF PRESENT ILLNESS: He does have history of [id number] smoking, quit smoking in . He does have COPD. He has inhalers, does not use them. He lives in [facility] now. He has a sleep apnea, has a CPAP, which is at his home, but it is broken. He has not used his CPAP for the past few months. He fell in the bathroom. Denies loss of consciousness before or after fall. He does have a right femoral neck fracture. Ortho is going to do surgery tomorrow. He does have shortness of breath, which is not worse than before. He has occasional cough, which is not worse than before. He was admitted to [facility] in August and had an Enterobacter faecalis bacteremia, treated with Zyvox by ID. He is not active. PAST MEDICAL HISTORY: COPD, obstructive sleep apnea-hypopnea syndrome, gastroesophageal reflux disease, hypertension, chronic kidney disease, BPH. Paroxysmal atrial fibrillation, on Eliquis. PAST SURGICAL HISTORY: Appendectomy, knee replacement, back surgery. ALLERGIES: No known drug allergies. MEDICATIONS: Currently, he is on Actos, fenofibrate, zinc, MiraLax, Toprol-XL, Lasix, vitamin D, aspirin, vitamin C, Norvasc, amiodarone, insulin, Protonix, potassium. SOCIAL HISTORY: History of [id number] smoking, quit smoking in . FAMILY HISTORY: Diabetes mellitus. REVIEW OF SYSTEMS: As mentioned as above. He has had lower extremity edema. Other systems otherwise negative. PHYSICAL EXAMINATION: GENERAL: This is an obese gentleman. His BMI is 46.3. VITAL SIGNS: His O2 saturation on 2 liters of oxygen is 94%, respiratory rate 17, heart rate 78, blood pressure 108/51, temperature 97.8. HEENT: Normocephalic, atraumatic. Pupils equal, round, reactive to light. There is shallow oropharynx. Nose is clear. NECK: Short, thick and there is no lymphadenopathy or thyromegaly. CARDIOVASCULAR: Regular rate and rhythm. The PMI is not displaced. CHEST: Inspection is normal. LUNGS: There is a few bibasilar crackles, few end expiratory wheezing with forced exhalation. ABDOMEN: Soft and obese. Bowel sounds are good. EXTREMITIES: There is lower extremity edema, chronic changes. LYMPHATICS: There is no lymphadenopathy. SKIN: Chronic changes. NEUROLOGIC: Alert and oriented. LABORATORY DATA: I reviewed the following lab data: Chest x-ray shows increased vascular marking, bibasilar atelectasis, left more than right. WBC 4.8, hemoglobin 10.1, platelets 160. COVID-19 PCR and rapid negative. Sodium 141, potassium 4.1, chloride 102, CO2 of 31, BUN 33, creatinine 1.4. IMPRESSION: 1. Abnormal chest x-ray, suspect secondary to congestive heart failure and atelectasis. 2. Chronic diastolic congestive heart failure. 3. Chronic obstructive pulmonary disease. 4. Obstructive sleep apnea-hypopnea syndrome. 5. Status post fall with an acute subcapital fracture of the right femoral neck. 6. Diabetes mellitus. 7. Hypertension. 8. History of COVID-19 pneumonia last year. 9. Obesity. 10. Acute kidney injury/chronic kidney disease. PLAN AND RECOMMENDATIONS: 1. Titrate FiO2 to keep O2 saturation 90%. 2. Start incentive spirometer to use multiple times an hour. 3. I will start him on BiPAP at bedtime and during sleep and p.r.n. during day. The importance of adequate treatment of obstructive sleep apnea-hypopnea syndrome was discussed with the patient in detail. He does have a CPAP at home, which is broken. We need to ask the [employer] company to replace. 4. I do recommend Cardiology consultation. He does have paroxysmal atrial fibrillation and chronic diastolic congestive heart failure. 5. Start bronchodilator. 6. Start inhaled corticosteroid. 7. Lose weight. 8. Monitor respiratory status closely postop. 9. BNP. 10. The findings and recommendations were discussed with the patient and RN. I have answered all of the patient's questions. Thank you very much for allowing me to participate in care of this very nice gentleman. HAVEN DR: Mireya TID: [id number]
[2021-10-22] MEDS: PANTOPRAZOLE 40 MG TABLET.DR. PO SCH (08:22)
[2021-10-22] MEDS: POLYETHYLENE GLYCOL 3350 17 GM PACKET. PO SCH (09:00)
[2021-10-22] MEDS: ZINC OXIDE 20% TOPICAL OINTMENT 28GM TUBE. TP SCH ×2 (09:00→21:00)
[2021-10-22] MEDS: AMIODARONE HCL 200 MG TABLET. PO SCH (09:06)
[2021-10-22] MEDS: CHOLECALCIFEROL (VITAMIN D3) 1,000 UNIT TABLET PO SCH (09:06)
[2021-10-22] MEDS: POTASSIUM CITRATE 10 MEQ TABLET.ER PO SCH ×2 (09:07→20:23)
[2021-10-22] MEDS: ASCORBIC ACID 500 MG TABLET PO SCH (09:07)
[2021-10-22] MEDS: ALLOPURINOL 100 MG TABLET. PO SCH ×2 (09:07→20:23)
[2021-10-22] MEDS: PIOGLITAZONE 15 MG TABLET. PO SCH (09:07)
[2021-10-22] MEDS: ZINC SULFATE 220 MG CAPSULE. PO SCH (09:07)
[2021-10-22] MEDS: ASPIRIN 325 MG TABLET PO SCH (09:07)
[2021-10-22] MEDS: FUROSEMIDE 40 MG TABLET. PO SCH (09:07)
[2021-10-22] MEDS: FENOFIBRATE,MICRONIZED 134 MG CAPSULE PO SCH (09:08)
[2021-10-22] MEDS: METOPROLOL SUCC 24HR ER 25 MG TAB.ER.24H. PO SCH (09:09)
--- NOTE | 2021-10-22 10:31 | PDOC ---
[employer] PROGRESS NOTE Date of Service DOS: DATE: 10/22/21 TIME: 10:29 Chief Complaint Chief Complaint Abnormal chest x-ray, suspect secondary to congestive heart failure and atelectasis. Chronic diastolic congestive heart failure. Chronic obstructive pulmonary disease. Obstructive sleep apnea-hypopnea syndrome. Status post fall Acute subcapital fracture of the right femoral neck. Diabetes mellitus. Hypertension. History of COVID-19 pneumonia last year. Obesity. Acute kidney injury/chronic kidney disease. History of Present Illness History of Present Illness Mr Moore is an 81 yo male with PMHx COPD, paroxsymal afib, HTN, chronic diastolic CHF, EZIO previously intolerant of CPAP who comes from his assisted living facility, [facility], where he lives with his who has Alzheimer dementia, after a fall in the bathroom. X-rays show an acute displaced subcapital fracture of the right femoral neck. 10/22: He has been in the hospital since August. His pain is reasonably controlled right now. CKD stable per nephrology. Agree with pulmonology recommendations for preoperative cardiac evaluation given his paroxysmal A. fib. Is currently in sinus on exami Vitals/I&O Vitals/I&O: Vital Signs Date Time Temp Pulse Resp B/P (MAP) Pulse Ox O2 Delivery O2 Flow Rate FiO2 10/22/21 09:09 82 112/44 10/22/21 08:00 Nasal Cannula 2.0 10/22/21 07:52 97 10/22/21 07:00 97.9 18 97.9 I & O 10/21/21 10/21/21 10/22/21 15:00 23:00 07:00 Output Total 400 ml Balance -400 ml Physical Exam Lungs: Clear Labs Labs: Laboratory Tests Test 10/21/21 16:35 10/21/21 18:39 10/21/21 22:50 10/22/21 05:55 Glucose (Fingerstick) 140 mg/dL (70-99) 126 mg/dL (70-99) Urine Collection Type Unknown Urine Color Yellow Urine Clarity Clear Urine pH 7.0 (<5.0-8.0) Urine Specific Dow 1.015 (1.000-1.030) Urine Protein Negative mg/dL (NEG-TRACE) Urine Glucose (UA) Negative mg/dL (NEG) Urine Ketones (Stick) Negative mg/dL (NEG) Urine Blood Negative (NEG) Urine Nitrite Negative (NEG) Urine Bilirubin Negative (NEG) Urine Urobilinogen Dipstick 1.0 mg/dL (0.2 mg/dL) Urine Leukocyte Esterase Small (NEG) Urine RBC 0 /HPF (0-2) Urine WBC 5-10 /HPF (0-4) Urine Squamous Epithelial Cells Occ /LPF Urine Amorphous Sediment Present /HPF Urine Bacteria Moderate /HPF (0-FEW) Urine Mucus Slight /LPF White Blood Count 4.8 x10^3/uL (4.0-11.0) Red Blood Count 3.23 x10^6/uL (4.30-5.70) Hemoglobin 10.1 g/dL (13.0-17.5) Hematocrit 31.6 % (39.0-53.0) Mean Corpuscular Volume 98 fL (79-100) Mean Corpuscular Hemoglobin 31 pg (25-35) Mean Corpuscular Hemoglobin Concent 32 g/dL (31-37) Red Cell Distribution Width 17.7 % (11.5-14.5) Platelet Count 160 x10^3/uL (140-400) Neutrophils (%) (Auto) 72 % (31-73) Lymphocytes (%) (Auto) 13 % (24-48) Monocytes (%) (Auto) 6 % (0-9) Eosinophils (%) (Auto) 8 % (0-3) Basophils (%) (Auto) 2 % (0-3) Neutrophils # (Auto) 3.4 x10^3/uL (1.8-7.7) Lymphocytes # (Auto) 0.6 x10^3/uL (1.0-4.8) Monocytes # (Auto) 0.3 x10^3/uL (0.0-1.1) Eosinophils # (Auto) 0.4 x10^3/uL (0.0-0.7) Basophils # (Auto) 0.1 x10^3/uL (0.0-0.2) Prothrombin Time 14.7 SEC (11.7-14.0) Prothromb Time International Ratio 1.2 (0.8-1.1) Sodium Level 143 mmol/L (136-145) Potassium Level 4.3 mmol/L (3.5-5.1) Chloride Level 105 mmol/L (98-107) Carbon Dioxide Level 30 mmol/L (21-32) Anion Gap 8 (6-14) Blood Urea Nitrogen 27 mg/dL (8-26) Creatinine 1.2 mg/dL (0.7-1.3) Estimated GFR (Cockcroft-Gault) 58.1 BUN/Creatinine Ratio 23 (6-20) Glucose Level 87 mg/dL (70-99) Calcium Level 8.7 mg/dL (8.5-10.1) Total Bilirubin 0.5 mg/dL (0.2-1.0) Aspartate Amino Transf (AST/SGOT) 27 U/L (15-37) Alanine Aminotransferase (ALT/SGPT) 23 U/L (16-63) Alkaline Phosphatase 57 U/L (46-116) YA-Aou-J-Type Natriuretic Peptide 2350 pg/mL (0-449) Total Protein 5.6 g/dL (6.4-8.2) Albumin 2.9 g/dL (3.4-5.0) Albumin/Globulin Ratio 1.1 (1.0-1.7) Test 10/22/21 08:15 Glucose (Fingerstick) 105 mg/dL (70-99) Assessment and Plan Assessmemt and Plan Problems Medical Problems: (1) Fracture of femoral neck, right Status: Acute (2) Respiratory failure with hypoxia Status: Acute Comment Review of Relevant I have reviewed the following items shirin (where applicable) has been applied. Medications: Current Medications Medications (Trade) Dose Ordered Sig/Nigel Route PRN Reason Start Time Stop Time Status Last Admin Dose Admin Allopurinol (Zyloprim) 100 mg BID PO 10/21/21 21:00 10/22/21 09:07 Amiodarone HCl (Cordarone) 200 mg DAILY PO 10/22/21 09:00 10/22/21 09:06 Amlodipine Besylate (Norvasc) 10 mg DAILY PO 10/22/21 09:00 10/22/21 09:07 Ascorbic Acid (Vitamin C) 500 mg DAILY PO 10/22/21 09:00 10/22/21 09:07 Aspirin (Daria Aspirin) 325 mg DAILY PO 10/22/21 09:00 10/22/21 09:07 Vitamin D (Vitamin D3) 2,000 unit DAILY PO 10/22/21 09:00 10/22/21 09:06 Furosemide (Lasix) 40 mg DAILY PO 10/22/21 09:00 10/22/21 09:07 Acetaminophen/ Hydrocodone Bitart (Lortab 5/325) 2 tab PRN Q6HRS PRN PO SEVERE PAIN 10/21/21 17:00 10/22/21 06:21 Metoprolol Succinate (Toprol Xl) 12.5 mg DAILY PO 10/22/21 09:00 10/22/21 09:09 Tamsulosin HCl (Flomax) 0.8 mg QHS PO 10/21/21 21:00 10/21/21 20:47 Zinc Sulfate (Orazinc) 220 mg DAILY PO 10/22/21 09:00 10/22/21 09:07 Latanoprost (Xalatan) 1 drop QHS OU 10/21/21 21:00 10/21/21 20:47 Fenofibrate (Lofibra) 134 mg DAILY PO 10/22/21 09:00 10/22/21 09:08 Zinc Oxide (Zinc Oxide 20% Topical) 1 kina BID TP 10/21/21 21:00 10/21/21 20:47 Pantoprazole Sodium (Protonix) 40 mg DAILYAC PO 10/22/21 07:30 10/22/21 08:22 Pioglitazone HCl (Actos) 30 mg DAILY PO 10/22/21 09:00 10/22/21 09:07 Potassium Citrate (Urocit-K) 10 meq BID PO 10/21/21 21:00 10/22/21 09:07 Hydralazine HCl (Apresoline) 50 mg TID PO 10/21/21 21:00 10/22/21 09:08 Albuterol/ Ipratropium (Duoneb) 3 ml RTQID NEB 10/22/21 08:00 10/22/21 07:48 Budesonide (Pulmicort) 0.5 mg RTBID NEB 10/22/21 08:00 10/22/21 07:48 Justifications for Admission Other Justification LENIN ELLIOTT MD Oct 22, 2021 10:31
[2021-10-22 10:51] VITALS: BP 128/59
[2021-10-22 15:00] VITALS: BP 112/52
[2021-10-22] MEDS: NYSTATIN TOPICAL POWDER 15GM BOTTLE. TP SCH (18:00)
[2021-10-22 19:00] VITALS: BP 109/48
[2021-10-22] MEDS: LATANOPROST 0.005% OPHTH SOLUTION 2.5ML BOTTLE. OU SCH (20:20)
[2021-10-22] MEDS: TAMSULOSIN 0.4 MG CAP.ER.24H. PO SCH (20:22)
[2021-10-22] MEDS: INSULIN GLARGINE SYRINGE. SQ SCH (21:00)
[2021-10-22 22:36] VITALS: BP 120/51
[2021-10-23] MEDS: HYDROcodone/APAP 5/325MG 1 TAB TABLET PO PRN ×3 (01:58→23:49)
[2021-10-23 03:01] VITALS: BP 124/56
[2021-10-23] MEDS ORDERED: ceFAZolin SODIUM 3 GM in IV DEXTROSE 5% 100ML 100 ML IV PRN (06:00)
[2021-10-23] MEDS ORDERED: ceFAZolin SODIUM IV Push 1 GM VIAL. IVP PRN (06:00)
[2021-10-23 06:39] LABS: CALCIUM 8.7 mg/dL (8.5-10.1); CREATININE 1.2 mg/dL (0.7-1.3); GFR 58.1; POTASSIUM 4.2 mmol/L (3.5-5.1)
[2021-10-23 06:54] LABS: HEMATOCRIT 29.1 % (39.0-53.0); HEMOGLOBIN 9.5 g/dL (13.0-17.5); RED BLOOD COUNT 2.97 x10^6/uL (4.30-5.70); RED CELL DISTRIBUTION WIDTH 17.8 % (11.5-14.5)
[2021-10-23 07:30] VITALS: BP 117/53
[2021-10-23] MEDS: BUDESONIDE 0.5 MG/2 ML NEBU. NEB SCH ×2 (07:32→18:37)
[2021-10-23] MEDS: IPRATRPIUM/ALBUTEROL 0.5/2.5MG 3 ML NEBU. NEB SCH ×4 (07:32→20:00)
[2021-10-23] MEDS: INSULIN LISPRO 300 UNITS/3 ML VIAL. SQ SCH ×3 (08:00→17:00)
[2021-10-23] MEDS: METOPROLOL SUCC 24HR ER 25 MG TAB.ER.24H. PO SCH (08:26)
[2021-10-23] MEDS ORDERED: TRANEXAMIC ACID in NS IVPB 50 ML INJ ONE ×2 (09:00→11:00)
--- NOTE | 2021-10-23 10:01 | PDOC ---
DATE OF SERVICE DATE: 10/23/21 TIME: 09:46 SUBJECTIVE ROS No complaints . States scheduled for surgery at 12:30 today Has Dx of BPH and not good Urine stream - stable currently OBJECTIVE Vital Signs Vital Signs Date Time Temp Pulse Resp B/P (MAP) Pulse Ox O2 Delivery O2 Flow Rate FiO2 10/23/21 08:27 20 93 Nasal Cannula 2.0 10/23/21 08:26 70 117/53 10/23/21 07:30 97.8 97.8 I & 0 Intake and Output 10/23/21 07:00 Intake Total 550 ml Output Total 675 ml Balance -125 ml Intake Oral 550 ml Output Urine Total 675 ml PHYSICAL EXAM Physical Exam GENERAL NAD HEENT: OM moist NECK: supple LUNGS: Decreased breath sound at bases. Non labored CARDIAC: Without S3 or rub. ABDOMEN: Obese. Bowel sounds are present. Nontender. EXTREMITIES: Without edema.Changes of CVI Bilat LE ++ NEURO- Grossly normal PSYCHIATRIC: Follows appropriately. No Maher, No CXVA or SP tenderness DERM No Rash DIAGNOSIS/ASSESSMENT Assessment & Plan JESUS MANUEL - Vasomotor , Resolved to baseline . Hx of JESUS MANUEL in 2014 . Baseline Cr 1.2 seth . Supportive care, avoid nephrotoxins . Mantain fluid balance Chronic kidney disease, stage 2/ 3 A secondary to hypertensive nephrosclerosis and diabetes mellitus as well as nephron loss with age. He recalls following wit h me at [place] ; not recently due to resolution of JESUS MANUEL and stable renal function Acute subcapital fracture of the right femoral neck.- s/p Fall . hip hemiarthroplasty scheduled later today per Orthopedic Abnormal chest x-ray, suspect secondary to congestive heart failure and atelectasis. Chronic diastolic congestive heart failure- On PO Lasix Hypertension- BP stable. Hold antihypertensives if BP low BPH- defer to primary Chronic obstructive pulmonary disease. Obstructive sleep apnea-hypopnea syndrome. Diabetes mellitus. History of COVID-19 pneumonia last year. Obesity. COMMENT/RELEVANT DATA Meds Current Medications Medications (Trade) Dose Ordered Sig/Nigel Start Time Stop Time Status Last Admin Dose Admin Acetaminophen (Tylenol) 650 mg PRN Q6HRS PRN 10/21/21 17:45 Acetaminophen/ Hydrocodone Bitart (Lortab 5/325) 2 tab PRN Q6HRS PRN 10/21/21 17:00 10/23/21 08:27 2 TAB Albuterol/ Ipratropium (Duoneb) 3 ml RTQID 10/22/21 08:00 10/23/21 07:32 3 ML Allopurinol (Zyloprim) 100 mg BID 10/21/21 21:00 10/22/21 20:23 100 MG Amiodarone HCl (Cordarone) 200 mg DAILY 10/22/21 09:00 10/22/21 09:06 200 MG Amlodipine Besylate (Norvasc) 10 mg DAILY 10/22/21 09:00 10/22/21 09:07 10 MG Ascorbic Acid (Vitamin C) 500 mg DAILY 10/22/21 09:00 10/22/21 09:07 500 MG Aspirin (Daria Aspirin) 325 mg DAILY 10/22/21 09:00 10/22/21 09:07 325 MG Budesonide (Pulmicort) 0.5 mg RTBID 10/22/21 08:00 10/23/21 07:32 0.5 MG Cefazolin Sodium (Ancef) 3 gm 1X PREOP PRN 10/23/21 06:00 10/23/21 18:00 Cancel Cefazolin Sodium 3 gm/Dextrose 100 ml @ 200 mls/hr 1X PREOP PRN 10/23/21 06:00 10/23/21 15:00 Dextrose (Dextrose 50%-Water Syringe) 12.5 gm PRN Q15MIN PRN 10/21/21 17:45 Dextrose (Iv Dextrose 5%) 250 ml PRN Q15MIN PRN 10/21/21 17:45 Docusate Sodium (Colace) 100 mg PRN DAILY PRN 10/21/21 17:00 Fenofibrate (Lofibra) 134 mg DAILY 10/22/21 09:00 10/22/21 09:08 134 MG Furosemide (Lasix) 40 mg DAILY 10/22/21 09:00 10/22/21 09:07 40 MG Guaifenesin (MUCINEX ER with DM) 1 tab PRN BID PRN 10/21/21 17:00 Hydralazine HCl (Apresoline) 50 mg TID 10/21/21 21:00 10/22/21 20:21 50 MG Insulin Glargine (Lantus Syringe) 5 unit HS 10/21/21 21:00 Insulin Human Lispro (HumaLOG) 0-9 UNITS TIDWMEALS 10/22/21 08:00 Latanoprost (Xalatan) 1 drop QHS 10/21/21 21:00 10/22/21 20:20 1 DROP Metoprolol Succinate (Toprol Xl) 12.5 mg DAILY 10/22/21 09:00 10/23/21 08:26 12.5 MG Morphine Sulfate (Morphine Sulfate) 2 mg PRN Q2HR PRN 10/21/21 09:45 10/22/21 09:44 DC 10/21/21 15:54 2 MG Morphine Sulfate 5 mg/Ropivacaine 60 ml/Epinephrine HCl 0.5 mg/Sodium Chloride 100 ml @ 100 mls/hr 1X ONCE 10/23/21 06:00 10/23/21 06:59 DC Non-Formulary Medication (Guaifenesin/ Dextromethorphan (Robitussin Cough-Chest Dm Liq)) 10 ml PRN Q4HRS PRN 10/21/21 17:00 UNV Nystatin (Mycostatin) 1 kina PRN Q12HRS PRN 10/21/21 21:00 Nystatin (Nystop) 1 kina DAILY 10/22/21 09:00 10/22/21 18:00 1 KINA Olanzapine (ZyPREXA ZYDIS) 5 mg PRN BID PRN 10/21/21 17:45 Ondansetron HCl (Zofran) 4 mg PRN Q4HRS PRN 10/21/21 17:45 Pantoprazole Sodium (Protonix) 40 mg DAILYAC 10/22/21 07:30 10/22/21 08:22 40 MG Pioglitazone HCl (Actos) 30 mg DAILY 10/22/21 09:00 10/22/21 09:07 30 MG Polyethylene Glycol (miraLAX PACKET) 17 gm DAILY 10/22/21 09:00 Potassium Citrate (Urocit-K) 10 meq BID 10/21/21 21:00 10/22/21 20:23 10 MEQ Tamsulosin HCl (Flomax) 0.8 mg QHS 10/21/21 21:00 10/22/21 20:22 0.8 MG Throat Lozenges (Cepacol Sore Throat Lozenge) 1 adonay PRN Q4HRS PRN 10/21/21 20:00 Tranexamic Acid 50 ml @ 50 mls/hr 1X PERIOP ONCE 10/23/21 09:00 10/23/21 09:59 Vitamin D (Vitamin D3) 2,000 unit DAILY 10/22/21 09:00 10/22/21 09:06 2,000 UNIT Zinc Oxide (Zinc Oxide 20% Topical) 1 kina BID 10/21/21 21:00 10/21/21 20:47 1 KINA Zinc Sulfate (Orazinc) 220 mg DAILY 10/22/21 09:00 10/22/21 09:07 220 MG Lab Laboratory Tests Test 10/22/21 10:47 10/22/21 16:57 10/22/21 18:58 10/23/21 04:55 Glucose (Fingerstick) 119 mg/dL (70-99) 113 mg/dL (70-99) 146 mg/dL (70-99) White Blood Count 4.0 x10^3/uL (4.0-11.0) Red Blood Count 2.97 x10^6/uL (4.30-5.70) Hemoglobin 9.5 g/dL (13.0-17.5) Hematocrit 29.1 % (39.0-53.0) Mean Corpuscular Volume 98 fL (79-100) Mean Corpuscular Hemoglobin 32 pg (25-35) Mean Corpuscular Hemoglobin Concent 33 g/dL (31-37) Red Cell Distribution Width 17.8 % (11.5-14.5) Platelet Count 122 x10^3/uL (140-400) Sodium Level 139 mmol/L (136-145) Potassium Level 4.2 mmol/L (3.5-5.1) Chloride Level 103 mmol/L (98-107) Carbon Dioxide Level 28 mmol/L (21-32) Anion Gap 8 (6-14) Blood Urea Nitrogen 28 mg/dL (8-26) Creatinine 1.2 mg/dL (0.7-1.3) Estimated GFR (Cockcroft-Gault) 58.1 Glucose Level 98 mg/dL (70-99) Calcium Level 8.7 mg/dL (8.5-10.1) Results All relevant outside records, renal labs, imaging studies, telemetry/EKG's were reviewed. Justicifation of Admission Dx: Justifications for Admission: Justification of Admission Dx: Yes ROSITA FERMIN MD Oct 23, 2021 10:01
--- NOTE | 2021-10-23 10:35 | PDOC2 ---
ERON HORTON RATE SETTER 10/23/21 1035: CARDIAC CONSULT DATE OF CONSULT Date of Consult DATE: 10/23/21 TIME: 10:15 REASON FOR CONSULT Reason for Consult: PAFIB, femur fracture REFERRING PHYSICIAN Referring Physician: Dr. Villareal SOURCE Source: Chart review, Patient HISTORY OF PRESENT ILLNESS HISTORY OF PRESENT ILLNESS This is an 81 yo male who presented from nursing facility secondary to right hip pain following mechanical fall. Patient reports he was using his walker and getting pants out of his closet. He reports that he turned to close the closet door and did not have a hold of his walker. Reports he lost his balance and fell. Did hit his head. Denies any LOC. No precipitating dizziness, lightheadedness. C/o right hip pain. Imaging notable for acute subcapital fracture of the right femoral neck. Patient does have a history of PAFIB and is on Eliquis. PAST MEDICAL HISTORY Cardiovascular: CHF, HTN Pulmonary: COPD, Other (EZIO) GI: GERD Musculoskeletal: Osteoarthritis Rheumatologic: Gout Renal/: Chronic renal insuff, Other (urinary retention ) Endocrine: Diabetes PAST SURGICAL HISTORY Past Surgical History: Appendectomy, Cataract Removal, Total knee replacement (bilateral ), Tonsillectomy, Other (lumbar kyphoplasty ) FAMILY HISTORY Family History: Family History Unknown SOCIAL HISTORY Smoke: Quit ALCOHOL: none Drugs: None Lives: [facility] ALLERGIES ALLERGIES: Coded Allergies: No Known Drug Allergies (Unverified , 05/03/15) ROS Review of System 14 point ROS conducted with pertinent positives noted above in HPI PHYSICAL EXAM General: Alert, Oriented X3, Cooperative, No acute distress HEENT: Atraumatic Lungs: Other (diminished bases) Heart: Other (IRRR; tele AFIB) Abdomen: Soft, Other (obese) Extremities: Other (1-2+ bilateral LE edema ) Skin: Other (diffuse upper extremity bruising) Neuro: Normal speech, Sensation intact Psych/Mental Status: Mental status NL, Mood NL MUSCULOSKELETAL: Osteoarthritic changes both hands VITALS/I&O VITALS/I&O: Vital Signs Date Time Temp Pulse Resp B/P (MAP) Pulse Ox O2 Delivery O2 Flow Rate FiO2 10/23/21 08:27 20 93 Nasal Cannula 2.0 10/23/21 08:26 70 117/53 10/23/21 07:30 97.8 97.8 I & O 10/22/21 10/22/21 10/23/21 15:00 23:00 07:00 Intake Total 250 ml 300 ml Output Total 275 ml 200 ml 200 ml Balance -25 ml 100 ml -200 ml LABS Lab: Laboratory Tests Test 10/22/21 10:47 10/22/21 16:57 10/22/21 18:58 10/23/21 04:55 Glucose (Fingerstick) 119 mg/dL (70-99) H 113 mg/dL (70-99) H 146 mg/dL (70-99) H White Blood Count 4.0 x10^3/uL (4.0-11.0) Red Blood Count 2.97 x10^6/uL (4.30-5.70) L Hemoglobin 9.5 g/dL (13.0-17.5) L Hematocrit 29.1 % (39.0-53.0) L Mean Corpuscular Volume 98 fL (79-100) Mean Corpuscular Hemoglobin 32 pg (25-35) Mean Corpuscular Hemoglobin Concent 33 g/dL (31-37) Red Cell Distribution Width 17.8 % (11.5-14.5) H Platelet Count 122 x10^3/uL (140-400) L Sodium Level 139 mmol/L (136-145) Potassium Level 4.2 mmol/L (3.5-5.1) Chloride Level 103 mmol/L (98-107) Carbon Dioxide Level 28 mmol/L (21-32) Anion Gap 8 (6-14) Blood Urea Nitrogen 28 mg/dL (8-26) H Creatinine 1.2 mg/dL (0.7-1.3) Estimated GFR (Cockcroft-Gault) 58.1 Glucose Level 98 mg/dL (70-99) Calcium Level 8.7 mg/dL (8.5-10.1) Laboratory Tests 10/23/21 04:55 Laboratory Tests 10/23/21 04:55 ECHOCARDIOGRAM ECHOCARDIOGRAM <Conclusion> The left ventricular systolic function is normal. Estimated ejection fraction 50-55%. There is normal LV segmental wall motion. Mild tricuspid regurgitation. There is no evidence of significant pericardial effusion. DATE: 09/15/21 [id number] 0 ASSESSMENT/PLAN ASSESSMENT/PLAN 1. Traumatic mechanical fall with acute right femoral neck fracture 2. Persistent AFIB; on Eliquis for stroke prophylaxis. Recent event monitor with 100% AFIB burden. Tele noted with 2.5 second pauses 10/22 at 1550. No further bradycardia or bradyarrhythmias noted 3. Acute on chronic respiratory failure secondary to acute on chronic diastolic heart failure; Recent echo with preserved LV systolic function. 4. Hypertension; controlled 5. Morbid obesity 6. Diabetes, II 7. JESUS MANUEL on CKD 8. Anemia, thrombocytopenia Recommendations Lasix therapy with monitoring of renal function Hold BB therapy. Monitor tele Consider discontinuing amiodarone as recent event monitor shows 100% AFIB burden. Will discuss with primary punch press operator helper Hold Eliquis for surgery Possible poor candidate for long-term OAC. Consider outpatient referral for [facility] Supportive care MARGUERITE RESTREPO MD 10/23/212127: CARDIAC CONSULT ASSESSMENT/PLAN ASSESSMENT/PLAN The patient was seen and interviewed as well as examined at the bedside. The chart was reviewed. The case was discussed. Agree with the plan of care. ERON HORTON APRN Oct 23, 2021 10:35 MARGUERITE RESTREPO MD Oct 23, 2021 21:28
--- NOTE | 2021-10-23 10:43 | PDOC ---
PULMONARY PROGRESS NOTES DATE: 10/23/21 TIME: 10:34 Subjective patient seen resting in bed, NAD. wore CPAP last night. seen this morning on 2L. Vitals Vital Signs Date Time Temp Pulse Resp B/P (MAP) Pulse Ox O2 Delivery O2 Flow Rate FiO2 10/23/21 08:27 20 93 Nasal Cannula 2.0 10/23/21 08:26 70 117/53 10/23/21 07:30 97.8 97.8 General: Alert Lungs: Clear Cardiovascular: S1, S2 Abdomen: Soft Extremities: No Edema Labs Laboratory Tests Test 10/21/21 16:35 10/21/21 18:39 10/21/21 22:50 10/22/21 05:55 Glucose (Fingerstick) 140 mg/dL (70-99) 126 mg/dL (70-99) Urine Collection Type Unknown Urine Color Yellow Urine Clarity Clear Urine pH 7.0 (<5.0-8.0) Urine Specific [place] 1.015 (1.000-1.030) Urine Protein Negative mg/dL (NEG-TRACE) Urine Glucose (UA) Negative mg/dL (NEG) Urine Ketones (Stick) Negative mg/dL (NEG) Urine Blood Negative (NEG) Urine Nitrite Negative (NEG) Urine Bilirubin Negative (NEG) Urine Urobilinogen Dipstick 1.0 mg/dL (0.2 mg/dL) Urine Leukocyte Esterase Small (NEG) Urine RBC 0 /HPF (0-2) Urine WBC 5-10 /HPF (0-4) Urine Squamous Epithelial Cells Occ /LPF Urine Amorphous Sediment Present /HPF Urine Bacteria Moderate /HPF (0-FEW) Urine Mucus Slight /LPF White Blood Count 4.8 x10^3/uL (4.0-11.0) Red Blood Count 3.23 x10^6/uL (4.30-5.70) Hemoglobin 10.1 g/dL (13.0-17.5) Hematocrit 31.6 % (39.0-53.0) Mean Corpuscular Volume 98 fL (79-100) Mean Corpuscular Hemoglobin 31 pg (25-35) Mean Corpuscular Hemoglobin Concent 32 g/dL (31-37) Red Cell Distribution Width 17.7 % (11.5-14.5) Platelet Count 160 x10^3/uL (140-400) Neutrophils (%) (Auto) 72 % (31-73) Lymphocytes (%) (Auto) 13 % (24-48) Monocytes (%) (Auto) 6 % (0-9) Eosinophils (%) (Auto) 8 % (0-3) Basophils (%) (Auto) 2 % (0-3) Neutrophils # (Auto) 3.4 x10^3/uL (1.8-7.7) Lymphocytes # (Auto) 0.6 x10^3/uL (1.0-4.8) Monocytes # (Auto) 0.3 x10^3/uL (0.0-1.1) Eosinophils # (Auto) 0.4 x10^3/uL (0.0-0.7) Basophils # (Auto) 0.1 x10^3/uL (0.0-0.2) Prothrombin Time 14.7 SEC (11.7-14.0) Prothromb Time International Ratio 1.2 (0.8-1.1) Sodium Level 143 mmol/L (136-145) Potassium Level 4.3 mmol/L (3.5-5.1) Chloride Level 105 mmol/L (98-107) Carbon Dioxide Level 30 mmol/L (21-32) Anion Gap 8 (6-14) Blood Urea Nitrogen 27 mg/dL (8-26) Creatinine 1.2 mg/dL (0.7-1.3) Estimated GFR (Cockcroft-Gault) 58.1 BUN/Creatinine Ratio 23 (6-20) Glucose Level 87 mg/dL (70-99) Calcium Level 8.7 mg/dL (8.5-10.1) Total Bilirubin 0.5 mg/dL (0.2-1.0) Aspartate Amino Transf (AST/SGOT) 27 U/L (15-37) Alanine Aminotransferase (ALT/SGPT) 23 U/L (16-63) Alkaline Phosphatase 57 U/L (46-116) FX-Mkf-O-Type Natriuretic Peptide 2350 pg/mL (0-449) Total Protein 5.6 g/dL (6.4-8.2) Albumin 2.9 g/dL (3.4-5.0) Albumin/Globulin Ratio 1.1 (1.0-1.7) Test 10/22/21 08:15 10/22/21 10:47 10/22/21 16:57 10/22/21 18:58 Glucose (Fingerstick) 105 mg/dL (70-99) 119 mg/dL (70-99) 113 mg/dL (70-99) 146 mg/dL (70-99) Test 10/23/21 04:55 White Blood Count 4.0 x10^3/uL (4.0-11.0) Red Blood Count 2.97 x10^6/uL (4.30-5.70) Hemoglobin 9.5 g/dL (13.0-17.5) Hematocrit 29.1 % (39.0-53.0) Mean Corpuscular Volume 98 fL (79-100) Mean Corpuscular Hemoglobin 32 pg (25-35) Mean Corpuscular Hemoglobin Concent 33 g/dL (31-37) Red Cell Distribution Width 17.8 % (11.5-14.5) Platelet Count 122 x10^3/uL (140-400) Sodium Level 139 mmol/L (136-145) Potassium Level 4.2 mmol/L (3.5-5.1) Chloride Level 103 mmol/L (98-107) Carbon Dioxide Level 28 mmol/L (21-32) Anion Gap 8 (6-14) Blood Urea Nitrogen 28 mg/dL (8-26) Creatinine 1.2 mg/dL (0.7-1.3) Estimated GFR (Cockcroft-Gault) 58.1 Glucose Level 98 mg/dL (70-99) Calcium Level 8.7 mg/dL (8.5-10.1) 25-Hydroxy Vitamin D Total 35.9 ng/mL (30-100) Laboratory Tests Test 10/22/21 10:47 10/22/21 16:57 10/22/21 18:58 10/23/21 04:55 Glucose (Fingerstick) 119 mg/dL (70-99) 113 mg/dL (70-99) 146 mg/dL (70-99) White Blood Count 4.0 x10^3/uL (4.0-11.0) Red Blood Count 2.97 x10^6/uL (4.30-5.70) Hemoglobin 9.5 g/dL (13.0-17.5) Hematocrit 29.1 % (39.0-53.0) Mean Corpuscular Volume 98 fL (79-100) Mean Corpuscular Hemoglobin 32 pg (25-35) Mean Corpuscular Hemoglobin Concent 33 g/dL (31-37) Red Cell Distribution Width 17.8 % (11.5-14.5) Platelet Count 122 x10^3/uL (140-400) Sodium Level 139 mmol/L (136-145) Potassium Level 4.2 mmol/L (3.5-5.1) Chloride Level 103 mmol/L (98-107) Carbon Dioxide Level 28 mmol/L (21-32) Anion Gap 8 (6-14) Blood Urea Nitrogen 28 mg/dL (8-26) Creatinine 1.2 mg/dL (0.7-1.3) Estimated GFR (Cockcroft-Gault) 58.1 Glucose Level 98 mg/dL (70-99) Calcium Level 8.7 mg/dL (8.5-10.1) 25-Hydroxy Vitamin D Total 35.9 ng/mL (30-100) Medications Active Scripts Medications Dose Route/Sig Max Daily Dose Days Date Category Dose Instructions Omeprazole 20 Mg Capsule.dr 1 Cap PO DAILY 10/21/21 Reported Nystatin-Triamcinolone Cream (Nystatin/Triamcin) 15 Gm Cream..g. 1 Abigail TP BID 10/21/21 Reported Nystatin 1 Each Powder.ea. 1 Each MC BID 10/21/21 Reported Hydrocodone-Apap 5-325 (Hydrocodone Bit/Acetaminophen) 1 Tab Tablet 1 Tab PO PRN Q6HRS PRN 10/21/21 Reported Mucinex Dm Er 600-30 Mg Tablet (Guaifenesin/Dextromethorphan) 1 Each Tab.er.12h 1 Tab PO PRN BID PRN 10 10/21/21 Reported Lantus (Insulin Glargine,Hum.rec.anlog) 100 Unit/1 Ml Vial 5 Unit SQ HS 10/21/21 Reported Eliquis (Apixaban) 5 Mg Tablet 5 Mg PO BID 10/21/21 Reported Aspirin 325 Mg Tablet 1 Tab PO DAILY 10/21/21 Reported Metoprolol Succinate ( Xl ) (Metoprolol Succinate) 25 Mg Tab.er.24h 12.5 Mg PO DAILY 30 08/20/21 Rx Amiodarone Hcl 200 Mg Tablet 200 Mg PO DAILY 30 08/20/21 Rx Zinc Sulfate 50 Mg Capsule 220 Mg PO DAILY 08/17/21 Reported Ascorbic Acid 500 Mg Tablet 500 Mg PO DAILY 08/17/21 Reported Robitussin Cough-Chest Dm Liq (Guaifenesin/Dextromethorphan) 237 Ml Liquid 10 Ml PO PRN Q4HRS PRN 08/17/21 Reported Miralax (Polyethylene Glycol 3350) 17 Gm Powd.pack 1 Packet PO DAILY 2 08/17/21 Reported dissolve in water Lasix (Furosemide) 40 Mg Tablet 1 Tab PO DAILY 30 08/17/21 Reported Colace (Docusate Sodium) 100 Mg Capsule 100 Mg PO PRN DAILY PRN 08/17/21 Reported Cepacol Sore Throat Lozenge (Benzocaine/Menthol) 1 Each Lozenge 1 Tab PO Q4HRS 3 08/17/21 Reported Calmoseptine Ointment (Menthol/Zinc Oxide) 3.5 Gm Oint.pack 3.5 Gm TP BID 08/17/21 Reported Hydrocodone-Apap 5-325 (Hydrocodone Bit/Acetaminophen) 1 Tab Tablet 2 Tab PO PRN Q6HRS PRN 07/14/21 Rx Potassium Citrate Er (Potassium Citrate) 15 Meq Tablet.er 1 Tab PO BID 30 06/25/21 Reported Flomax (Tamsulosin Hcl) 0.4 Mg Cap.er.24h 2 Cap PO QHS 06/25/21 Reported Allopurinol 100 Mg Tablet 1 Tab PO BID 06/25/21 Reported [Hydralazine Hcl] 50 MG Tablet 50 Mg PO TID 05/06/15 Rx Norvasc (Amlodipine Besylate) 10 Mg Tablet 10 Mg PO DAILY 05/06/15 Rx Lumigan (Bimatoprost) 2.5 Ml Drops 1 Drop EACHEYE QHS 05/03/15 Reported Vitamin D3 (Cholecalciferol (Vitamin D3)) 1,000 Unit Tablet 2 Tab PO DAILY 05/03/15 Reported Tricor (Fenofibrate Nanocrystallized) 145 Mg Tablet 1 Tab PO QHS 05/03/15 Reported Actos (Pioglitazone Hcl) 30 Mg Tablet 1 Tab PO DAILY 05/03/15 Reported Impression . IMPRESSION: 1. Abnormal chest x-ray, suspect secondary to congestive heart failure and atelectasis. 2. Chronic diastolic congestive heart failure. 3. Chronic obstructive pulmonary disease. 4. Obstructive sleep apnea-hypopnea syndrome. 5. Status post fall with an acute subcapital fracture of the right femoral neck. 6. Diabetes mellitus. 7. Hypertension. 8. History of COVID-19 pneumonia last year. 9. Obesity. 10. Acute kidney injury/chronic kidney disease. Plan . update 10/23 Titrate FiO2 to keep O2 saturation 90%. incentive spirometer to use multiple times an hour. continue BiPAP at bedtime and during sleep and p.r.n. during day Cardiology consultation. He does have paroxysmal atrial fibrillation and chronic diastolic congestive heart failure. cont bronchodilator and inhaled corticosteroid. Monitor respiratory status closely postop. PLAN AND RECOMMENDATIONS: 1. Titrate FiO2 to keep O2 saturation 90%. 2. Start incentive spirometer to use multiple times an hour. 3. I will start him on BiPAP at bedtime and during sleep and p.r.n. during day. The importance of adequate treatment of obstructive sleep apnea-hypopnea syndrome was discussed with the patient in detail. He does have a CPAP at home, which is broken. We need to ask the [employer] to replace. 4. I do recommend Cardiology consultation. He does have paroxysmal atrial fibrillation and chronic diastolic congestive heart failure. 5. Start bronchodilator. 6. Start inhaled corticosteroid. 7. Lose weight. 8. Monitor respiratory status closely postop. 9. BNP. 10. The findings and recommendations were discussed with the patient and RN. I have answered all of the patient's questions. RAINER ASHLEY MD Oct 23, 2021 10:43
[2021-10-23 11:00] VITALS: BP 114/75
--- NOTE | 2021-10-23 11:29 | PDOC ---
[facility] PROGRESS NOTE Date of Service DOS: DATE: 10/23/21 TIME: 11:27 Chief Complaint Chief Complaint Abnormal chest x-ray, suspect secondary to congestive heart failure and atelectasis. Chronic diastolic congestive heart failure. Chronic obstructive pulmonary disease. Obstructive sleep apnea-hypopnea syndrome. Status post fall Acute subcapital fracture of the right femoral neck. Diabetes mellitus. Hypertension. History of COVID-19 pneumonia last year. Obesity. Acute kidney injury/chronic kidney disease. History of Present Illness History of Present Illness Mr Moore is an 81 yo male with PMHx COPD, paroxsymal afib, HTN, chronic diastolic CHF, EZIO previously intolerant of CPAP who comes from his assisted living facility, [facility], where he lives with his who has Alzheimer dementia, after a fall in the bathroom. X-rays show an acute displaced subcapital fracture of the right femoral neck. 10/22: He has been in the hospital since August. His pain is reasonably controlled right now. CKD stable per nephrology. Agree with pulmonology recommendations for preoperative cardiac evaluation given his paroxysmal A. fib. Is currently in sinus on exami 10/23 Patient evaluate examined at bedside. Eager for surgery today. We will follow up after surgery. Add on Cipro today for Proteus UTI. Otherwise continue current. Plan discussed bedside RN. Vitals/I&O Vitals/I&O: Vital Signs Date Time Temp Pulse Resp B/P (MAP) Pulse Ox O2 Delivery O2 Flow Rate FiO2 10/23/21 08:27 20 93 Nasal Cannula 2.0 10/23/21 08:26 70 117/53 10/23/21 07:30 97.8 97.8 I & O 10/22/21 10/22/21 10/23/21 15:00 23:00 07:00 Intake Total 250 ml 300 ml Output Total 275 ml 200 ml 200 ml Balance -25 ml 100 ml -200 ml Physical Exam General: Alert, Cooperative Heart: Regular rate Lungs: Clear Abdomen: Soft Extremities: Other (Bilateral lower extremity show pitting edema. There is tenderness of the right hip. There is pain with any attempted motion. The skin is intact without ecchymosis despite the Eliquis although his body habitus might mask deep ecchymosis. The extremity is shortened and externally rotated. Light touch sensation is intact at the foot and toes. Capillary refill and pulses are intact without evidence of ischemia. Slight dorsiflexion and plantarflexion are possible without evidence of sciatic nerve injury.) Labs Labs: Laboratory Tests Test 10/22/21 16:57 10/22/21 18:58 10/23/21 04:55 10/23/21 11:11 Glucose (Fingerstick) 113 mg/dL (70-99) 146 mg/dL (70-99) 98 mg/dL (70-99) White Blood Count 4.0 x10^3/uL (4.0-11.0) Red Blood Count 2.97 x10^6/uL (4.30-5.70) Hemoglobin 9.5 g/dL (13.0-17.5) Hematocrit 29.1 % (39.0-53.0) Mean Corpuscular Volume 98 fL (79-100) Mean Corpuscular Hemoglobin 32 pg (25-35) Mean Corpuscular Hemoglobin Concent 33 g/dL (31-37) Red Cell Distribution Width 17.8 % (11.5-14.5) Platelet Count 122 x10^3/uL (140-400) Sodium Level 139 mmol/L (136-145) Potassium Level 4.2 mmol/L (3.5-5.1) Chloride Level 103 mmol/L (98-107) Carbon Dioxide Level 28 mmol/L (21-32) Anion Gap 8 (6-14) Blood Urea Nitrogen 28 mg/dL (8-26) Creatinine 1.2 mg/dL (0.7-1.3) Estimated GFR (Cockcroft-Gault) 58.1 Glucose Level 98 mg/dL (70-99) Calcium Level 8.7 mg/dL (8.5-10.1) 25-Hydroxy Vitamin D Total 35.9 ng/mL (30-100) Assessment and Plan Assessmemt and Plan Problems Medical Problems: (1) Fracture of femoral neck, right Status: Acute (2) Respiratory failure with hypoxia Status: Acute Comment Review of Relevant I have reviewed the following items shirin (where applicable) has been applied. Justifications for Admission Other Justification LENIN VIRGEN MD Oct 23, 2021 11:29
[2021-10-23] MEDS ORDERED: VANCOMYCIN 1 GM VIAL. ONE ×2 (12:12→12:35)
[2021-10-23] MEDS ORDERED: TOBRAMYCIN POWDER 1.2 GM VIAL. ONE (12:13)
[2021-10-23] MEDS ORDERED: fentaNYL PF VIAL 250 MCG/5 ML VIAL ONE (12:35)
[2021-10-23] MEDS ORDERED: EPINEPHrine 1 MG/ML VIAL ONE (12:35)
[2021-10-23] MEDS ORDERED: ROCURONIUM 50 MG/5 ML VIAL. ONE (12:35)
[2021-10-23] MEDS ORDERED: LIDOCAINE 2% PF 5 ML VIAL. ONE (14:31)
[2021-10-23] MEDS ORDERED: PROPOFOL 10 MG/ML (20ML) VIAL. IV ONE (14:31)
[2021-10-23] MEDS ORDERED: SEVOFLURANE > 120 MINUTES. IH ONE (14:31)
[2021-10-23] MEDS ORDERED: DEXAMETHASONE SOD PHOS 4 MG/ML VIAL ONE (14:31)
[2021-10-23] MEDS ORDERED: ONDANSETRON PF 4 MG/2 ML VIAL. ONE (14:31)
[2021-10-23] MEDS ORDERED: NEOSTIGMINE METHYLSULFATE 5 MG/5 ML SYRINGE. ONE (15:10)
[2021-10-23] MEDS ORDERED: GLYCOPYRROLATE 1 MG/5 ML VIAL. ONE (15:10)
--- NOTE | 2021-10-23 15:17 | PDOC4 ---
Operative Note Operative Note Date of Procedure: October 23, 2021 Pre-Op Diagnosis: Displaced midcervical fracture of right femur, initial encounter for closed fracture S72.031A Post-Op Diagnosis: same Procedure: right hip open treatment of femoral fracture, proximal end, neck, prosthetic replacement, CPT 40561 Anesthesia Type: General Surgeon: Richard Dobbins MD Seismograph Chief: JUNG Almonte EBL: 250 mL Specimens Obtained: right femoral head Complications: None Drains: None Implants: [employer] size 12 Conquest fracture femoral component cobalt c hrome, 12 mm distal post centralizer, Tandem cobalt chrome shell/ultrahigh molecular weight polyethylene liner bipolar 28 mm inner diameter, 57 mm outer diameter. Finley chrome 28 mm outer diameter +0 mm 12/14 taper cobalt chrome femoral head INDICATION FOR PROCEDURE: The patient is a 81-year-old man who fell, fracturing the right hip. X-rays show an unstable displaced right femoral neck fracture. The patient and I discussed the risks benefits and alternatives of a cemented hip hemiarthroplasty. The advantages are early range of motion and better pain control. Generally the patient can be up fully weightbearing as tolerated on the first postoperative day. The risks include risks of dislocation, infection, blood clots, leg length discrepancy, neurovascular injury particularly to the sciatic nerve causing a foot drop, and other potential surgical or anesthetic complications. The alternatives of surgery are bedrest for treatment which is generally not well tolerated due to the high risks of bedsores, pneumonia, blood clots, and frequently with nonoperative treatment for hip fractures. He stated understanding of the risks benefits and alternatives and desired to proceed with surgery. I discussed with him the increased risk of bleeding due to his Eliquis. His body habitus shows morbid obesity, which makes the surgery more difficult, frequently a longer incision, and likely more blood loss just due to the body habitus alone. All of his questions about surgery were answered and he desired to proceed. A written consent was obtained. PROCEDURE IN DETAIL: The patient was identified in the preoperative holding area. The correct right hip was marked by me. The patient was taken to the operating room where a general anesthetic was used. Preoperative antibiotics were given intravenously. The patient was positioned laterally using a Stulberg hip positioner and the bony prominences of the nonoperative leg were well padded. The patient has very fragile skin, and is morbidly obese, and despite extreme fear, skin tears occurred on the arm well positioning the patient in the lateral position. Extra lifting helpers were needed due to the patient's extreme size. All of the operating team wore the personal ventilated exhaust scrub suits. The right hip and limb were thoroughly washed with chlorhexidine solution, dried, and then prepared with ChloraPrep solution using sterile technique. Sterile draping was performed, using a sterile [place] hip drape and an impervious stockinette such that the skin was entirely covered. A time-out procedure was performed. A posterior approach to the right hip was used. Sharp dissection was used. Bovie electrocautery was used for hemostasis. Gelpi retractors were placed. Sharp dissection was used and the fascia was exposed. The fascia was divided sharply and then a Charnley retractor was placed. My certified physical therapist assistant internally rotated the hip and I divided the short external rotators off the posterior aspect of the hip. The Charnley retractor was placed in a manner to protect the sciatic nerve with the short external rotators. The capsule was divided in an inverted T fashion. The fracture was identified. The neck was recut with a saw. The neck fragment was removed. The head was removed with a corkscrew and measured using templates. The acetabulum was cleared of bony fragments. Traction sutures were placed in the capsule. The lateral aspect of the cut femoral neck was exposed. A box osteotome was used to enlarge the entry, at the lateral cortex of the femoral neck. A manual T-handle canal finder was used first, followed by sequential power reaming based on x-ray sizing and intramedullary bone chatter. Sequential broaching was then performed and then the calcar reamer was used to ream the neck on the final broach. Different head and neck length trials were used until satisfactory length and stability were achieved in full extension, hip flexion of 90 degrees, and internal rotation. The trial components were removed, and the canal was irrigated thoroughly with the [place] InterPulse device first using saline with epinephrine, and then dried carefully. Betadine lavage was performed to prevent infection, and then the Betadine was immediately rinsed with copious amounts of sterile saline using the [place] InterPulse radiology clerk. A cement restrictor was placed. The final implants were opened based on the trial sizing. Two packages of radiopaque bone cement were mixed with 1 gm of powdered Vancomycin, and 1.2 gm Tobramycin and then were vacuum-mixed with the monomer, and placed into a cement gun. The cement was now pressurized down the canal against the cement restrictor. The final stem was now implanted into the soft cement, and after excess cement was removed, the stem was held in an anteverted and valgus position until the cement hardened. The final head assembly was tamped onto the Cohen taper. The hip was reduced a final time with my certified physical therapist assistant applying longitudinal traction and rotation, while I guided the head into the acetabulum. A final check was made of limb length and stability in multiple positions. Copious irrigation was used. A periarticular injection was used. No drains were used. The capsule was closed with #2 Ethibond suture. One gram of powdered Vancomycin was used during the closure. The fascia was closed with #2 Vicryl suture. Next, #2-0 Vicryl suture was used in the subcutaneous tissues by my certified physical therapist assistant, and dariela were placed in the skin by my certified physical therapist assistant. Acticoat and a YULIYA single use negative pressure dressing were used. The patient was then transferred carefully back to a hospital bed. An abduction pillow was used. The patient tolerated the procedure well. Needle and sponge counts were correct. There were no apparent complications. RICHARD DOBBINS MD Oct 23, 2021 15:17
[2021-10-23] MEDS: IV 1/2 NORMAL SALINE 1,000 ML IV SCH (15:30)
[2021-10-23] MEDS ORDERED: oxyCODONE/APAP 5/325 1 TAB TABLET PO PRN ×2 (15:30→15:45)
[2021-10-23] MEDS ORDERED: MORPHINE SULFATE 4 MG/ML INJ. IVP PRN (15:30)
[2021-10-23] MEDS ORDERED: fentaNYL PF VIAL 100 MCG/2 ML VIAL IVP PRN (15:30)
[2021-10-23] MEDS ORDERED: IV DEXTROSE 5% 250 ML BAG. IV PRN (15:30)
[2021-10-23] MEDS ORDERED: DEXTROSE 50% 25 GM / 50ML DISP.SYRIN. IV PRN (15:30)
[2021-10-23] MEDS ORDERED: POLYETHYLENE GLYCOL 3350 17 GM PACKET. PO PRN (15:30)
[2021-10-23] MEDS ORDERED: ONDANSETRON PF 4 MG/2 ML VIAL. IVP PRN (15:30)
--- NOTE | 2021-10-23 15:58 | RAD ---
EXAM: Right hip and pelvis, 3 views. HISTORY: Postoperative evaluation. COMPARISON: None. FINDINGS: A frontal view of the pelvis and 2 views of the right hip are obtained. Note is made that t he images are all and correctly labeled left. There is a right hip arthroplasty in expected position. There is surrounding soft tissue gas and there are skin dariela due to recent surgery. IMPRESSION: Right hip arthroplasty in expected position. Electronically signed by: Cassandra Palacio MD (10/23/2021 3:56 PM) [id number]
[2021-10-23] MEDS ORDERED: POTASSIUM CHLORIDE 20 MEQ TABLET.ER. PO ONE (16:30)
[2021-10-23] MEDS ORDERED: FUROSEMIDE 40 MG/4 ML VIAL. IVP ONE (16:30)
--- NOTE | 2021-10-23 17:40 | NUR ---
PATIENT RETURNED TO THE UNIT PER BED FROM SURGERY(RIGHT HEMIARTHROPLASTY),YULIYA DRAIN TO RIGHT LATERAL HIP AREA, ABDUCTOR PILLOW IN PLACE, ON 6 LITERS O2 AND SATS 90%, POST OP VITALS STARTED AND ARE FOLLOWS 141/122,76,20,98.0. PATIENT WITH A NEW SKIN TEAR TO HIS RIGHT FOREARM, DRESSED WITH PETROLEUM GAUZE, 4X4 AND KERLEX PER THIS MACHINE TECHNICIAN, ICE PACK IN PLACE TO RIGHT HIP AREA, NEW SALINE LOCK NOTICED IN PATIENTS RIGHT INNER HAND AREA NEAR HIS THUMB, PATIENT WITH C/O TENDERNESS AT THE SITE. WILL ADMINISTER AM MEDICATIONS PATIENT DID NOT RECEIVE THEM PRIOR TO SURGERY, WILL OFFER DIET.
[2021-10-23] MEDS: CHOLECALCIFEROL (VITAMIN D3) 1,000 UNIT TABLET PO SCH (18:17)
[2021-10-23] MEDS: ASPIRIN 325 MG TABLET PO SCH (18:17)
[2021-10-23] MEDS: AMIODARONE HCL 200 MG TABLET. PO SCH (18:18)
[2021-10-23] MEDS: PIOGLITAZONE 15 MG TABLET. PO SCH (18:20)
[2021-10-23] MEDS: POTASSIUM CITRATE 10 MEQ TABLET.ER PO SCH ×2 (18:20→20:04)
[2021-10-23] MEDS: FENOFIBRATE,MICRONIZED 134 MG CAPSULE PO SCH (18:20)
[2021-10-23] MEDS: FUROSEMIDE 40 MG TABLET. PO SCH (18:20)
[2021-10-23] MEDS: CIPROFLOXACIN HCL 250 MG TABLET. PO SCH ×2 (18:20→20:05)
[2021-10-23] MEDS: PANTOPRAZOLE 40 MG TABLET.DR. PO SCH (18:21)
[2021-10-23] MEDS: ZINC SULFATE 220 MG CAPSULE. PO SCH (18:21)
[2021-10-23] MEDS: ASCORBIC ACID 500 MG TABLET PO SCH (18:21)
[2021-10-23] MEDS: ceFAZolin SODIUM 3 GM in IV DEXTROSE 5% 100ML 100 ML IV SCH (18:21)
[2021-10-23] MEDS: ALLOPURINOL 100 MG TABLET. PO SCH ×2 (18:21→20:04)
[2021-10-23] MEDS: POLYETHYLENE GLYCOL 3350 17 GM PACKET. PO SCH (18:21)
[2021-10-23] MEDS: NYSTATIN TOPICAL POWDER 15GM BOTTLE. TP SCH (18:22)
[2021-10-23] MEDS: ZINC OXIDE 20% TOPICAL OINTMENT 28GM TUBE. TP SCH ×2 (18:22→20:03)
[2021-10-23 19:45] VITALS: BP 129/57
[2021-10-23] MEDS: TAMSULOSIN 0.4 MG CAP.ER.24H. PO SCH (20:33)
[2021-10-23] MEDS: LATANOPROST 0.005% OPHTH SOLUTION 2.5ML BOTTLE. OU SCH (20:33)
[2021-10-23] MEDS: INSULIN GLARGINE SYRINGE. SQ SCH (20:38)
[2021-10-23 23:30] VITALS: BP 122/55
[2021-10-24] MEDS: ceFAZolin SODIUM 3 GM in IV DEXTROSE 5% 100ML 100 ML IV SCH ×2 (00:42→06:30)
[2021-10-24] MEDS: IV 1/2 NORMAL SALINE 1,000 ML IV SCH ×2 (00:54→18:10)
[2021-10-24 03:27] VITALS: BP 119/55
[2021-10-24] MEDS: HYDROcodone/APAP 5/325MG 1 TAB TABLET PO PRN ×3 (05:59→23:54)
[2021-10-24] MEDS ORDERED: MAGNESIUM HYDROXIDE 2,400 MG/30 ML ORAL.SUSP. PO PRN (06:00)
[2021-10-24] MEDS: BUDESONIDE 0.5 MG/2 ML NEBU. NEB SCH ×2 (06:37→20:06)
[2021-10-24] MEDS: IPRATRPIUM/ALBUTEROL 0.5/2.5MG 3 ML NEBU. NEB SCH ×4 (06:37→20:06)
[2021-10-24 07:00] VITALS: BP 113/52
[2021-10-24 07:13] LABS: HEMOGLOBIN 8.4 g/dL (13.0-17.5); RED BLOOD COUNT 2.66 x10^6/uL (4.30-5.70); RED CELL DISTRIBUTION WIDTH 17.5 % (11.5-14.5); WHITE BLOOD COUNT 3.9 x10^3/uL (4.0-11.0)
[2021-10-24 07:29] LABS: CALCIUM 8.6 mg/dL (8.5-10.1); CREATININE 1.2 mg/dL (0.7-1.3); GFR 58.1; POTASSIUM 4.6 mmol/L (3.5-5.1)
[2021-10-24] MEDS: INSULIN LISPRO 300 UNITS/3 ML VIAL. SQ SCH ×3 (08:00→17:00)
[2021-10-24] MEDS: POLYETHYLENE GLYCOL 3350 17 GM PACKET. PO SCH (09:00)
[2021-10-24] MEDS: ZINC SULFATE 220 MG CAPSULE. PO SCH (09:04)
[2021-10-24] MEDS: CHOLECALCIFEROL (VITAMIN D3) 1,000 UNIT TABLET PO SCH (09:04)
[2021-10-24] MEDS: CIPROFLOXACIN HCL 250 MG TABLET. PO SCH ×2 (09:04→21:50)
[2021-10-24] MEDS: POTASSIUM CITRATE 10 MEQ TABLET.ER PO SCH ×2 (09:05→21:49)
[2021-10-24] MEDS: FENOFIBRATE,MICRONIZED 134 MG CAPSULE PO SCH (09:05)
[2021-10-24] MEDS: ASPIRIN 325 MG TABLET PO SCH (09:05)
[2021-10-24] MEDS: PIOGLITAZONE 15 MG TABLET. PO SCH (09:06)
[2021-10-24] MEDS: PANTOPRAZOLE 40 MG TABLET.DR. PO SCH (09:06)
[2021-10-24] MEDS: APIXABAN 5 MG TABLET. PO SCH ×2 (09:06→21:49)
[2021-10-24] MEDS: ASCORBIC ACID 500 MG TABLET PO SCH (09:06)
[2021-10-24] MEDS: FUROSEMIDE 40 MG TABLET. PO SCH (09:07)
[2021-10-24] MEDS: ALLOPURINOL 100 MG TABLET. PO SCH ×2 (09:07→21:49)
[2021-10-24] MEDS: AMIODARONE HCL 200 MG TABLET. PO SCH (09:07)
[2021-10-24] MEDS: MULTIVITAMIN with MINERAL TABLET. PO SCH (09:07)
[2021-10-24] MEDS: SENNOSIDES/DOCUSATE 8.6/50MG TABLET. PO SCH (09:07)
[2021-10-24] MEDS: ZINC OXIDE 20% TOPICAL OINTMENT 28GM TUBE. TP SCH ×2 (09:08→21:00)
[2021-10-24] MEDS: NYSTATIN TOPICAL POWDER 15GM BOTTLE. TP SCH (09:08)
--- NOTE | 2021-10-24 10:36 | PDOC ---
DATE OF SERVICE DATE: 10/24/21 TIME: 10:24 SUBJECTIVE ROS S/P right hip open treatment of femoral fracture, proximal end, neck, prosthetic replacement on 10/23 States just feeling sore. Denies N/V, No SOB. OBJECTIVE Vital Signs Vital Signs Date Time Temp Pulse Resp B/P (MAP) Pulse Ox O2 Delivery O2 Flow Rate FiO2 10/24/21 09:07 61 113/52 10/24/21 07:00 98.5 20 96 Nasal Cannula 5.0 98.5 I & 0 Intake and Output 10/24/21 07:00 Intake Total 440 ml Output Total 950 ml Balance -510 ml Intake Oral 40 ml IV Total 400 ml Output Urine Total 700 ml Estimated Blood Loss 250 ml PHYSICAL EXAM Physical Exam GENERAL NAD HEENT: OM moist NECK: supple LUNGS: Decreased breath sound at bases. Non labored CARDIAC: Without S3 or rub. ABDOMEN: Obese. Bowel sounds are present. Nontender. EXTREMITIES: Without edema.Changes of CVI Bilat LE ++ NEURO- Grossly normal PSYCHIATRIC: Follows appropriately. No Maher, No CXVA or SP tenderness DERM No Rash, changes of CVI + DIAGNOSIS/ASSESSMENT Assessment & Plan JESUS MANUEL - Vasomotor , Resolved to baseline . Hx of JESUS MANUEL in 2015 . Baseline Cr 1.2 seth . Supportive care, avoid nephrotoxins . 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 He recalls following with me at [place] office ; not recently due to resolution of JESUS MANUEL and stable renal function Acute subcapital fracture of the right femoral neck after a fall . Underwent right hip open treatment of femoral fracture, proximal end, neck, prosthetic replacement on 10/23 Abnormal chest x-ray, suspect secondary to congestive heart failure and atelectasis. Chronic diastolic congestive heart failure- On PO Lasix Hypertension- BP stable. Also on Furosemide with other antihypertensives . Hold if BP stays low BPH- On Tamsulosin Chronic obstructive pulmonary disease. Obstructive sleep apnea-hypopnea syndrome. Diabetes mellitus. History of COVID-19 pneumonia last year. Obesity. COMMENT/RELEVANT DATA Meds Current Medications Medications (Trade) Dose Ordered Sig/Nigel Start Time Stop Time Status Last Admin Dose Admin Acetaminophen (Tylenol) 650 mg PRN Q6HRS PRN 10/21/21 17:45 Acetaminophen/ Hydrocodone Bitart (Lortab 5/325) 2 tab PRN Q6HRS PRN 10/21/21 17:00 10/24/21 05:59 2 TAB Albuterol/ Ipratropium (Duoneb) 3 ml RTQID 10/22/21 08:00 10/24/21 06:37 3 ML Allopurinol (Zyloprim) 100 mg BID 10/21/21 21:00 10/24/21 09:07 100 MG Amiodarone HCl (Cordarone) 200 mg DAILY 10/22/21 09:00 10/24/21 09:07 200 MG Amlodipine Besylate (Norvasc) 10 mg DAILY 10/22/21 09:00 10/24/21 09:05 10 MG Apixaban (Eliquis) 5 mg BID 10/24/21 09:00 10/24/21 09:06 5 MG Ascorbic Acid (Vitamin C) 500 mg DAILY 10/22/21 09:00 10/24/21 09:06 500 MG Aspirin (Daria Aspirin) 325 mg DAILY 10/22/21 09:00 10/24/21 09:05 325 MG Bisacodyl (Dulcolax Supp) 10 mg 1X PRN PRN 10/24/21 16:00 10/25/21 15:59 Budesonide (Pulmicort) 0.5 mg RTBID 10/22/21 08:00 10/24/21 06:37 0.5 MG Cefazolin Sodium (Ancef) 3 gm 1X PREOP PRN 10/23/21 06:00 10/23/21 18:00 Cancel Cefazolin Sodium 3 gm/Dextrose 100 ml @ 200 mls/hr Q6H 10/23/21 19:00 10/24/21 07:29 DC 10/24/21 06:30 200 MLS/HR Ciprofloxacin (Cipro) 500 mg BID 10/23/21 12:00 10/24/21 09:04 500 MG Dexamethasone Sodium Phosphate (Decadron) 4 mg STK-MED ONCE 10/23/21 14:31 10/23/21 14:31 DC Dextrose (Dextrose 50%-Water Syringe) 12.5 gm PRN Q15MIN PRN 10/23/21 15:30 Dextrose (Iv Dextrose 5%) 250 ml PRN Q15MIN PRN 10/23/21 15:30 Docusate Sodium (Colace) 100 mg PRN DAILY PRN 10/21/21 17:00 Epinephrine HCl (Adrenalin) 1 mg STK-MED ONCE 10/23/21 12:35 10/23/21 12:35 DC 10/23/21 13:46 1 MG Fenofibrate (Lofibra) 134 mg DAILY 10/22/21 09:00 10/24/21 09:05 134 MG Fentanyl Citrate (Fentanyl 2ml Vial) 50 mcg PRN Q1HR PRN 10/23/21 15:30 Fentanyl Citrate (Fentanyl 5ml Vial) 250 mcg STK-MED ONCE 10/23/21 12:35 10/23/21 12:35 DC Furosemide (Lasix) 40 mg 1X ONCE 10/23/21 16:30 10/23/21 16:31 DC Glycopyrrolate (Robinul) 1 mg STK-MED ONCE 10/23/21 15:10 10/23/21 15:10 DC Guaifenesin (MUCINEX ER with DM) 1 tab PRN BID PRN 10/21/21 17:00 Hydralazine HCl (Apresoline) 50 mg TID 10/21/21 21:00 10/24/21 09:07 50 MG Insulin Glargine (Lantus Syringe) 5 unit HS 10/21/21 21:00 Insulin Human Lispro (HumaLOG) 0-9 UNITS TIDWMEALS 10/22/21 08:00 Latanoprost (Xalatan) 1 drop QHS 10/21/21 21:00 10/23/21 20:33 1 DROP Lidocaine HCl (Lidocaine Pf 2% Vial) 5 ml STK-MED ONCE 10/23/21 14:31 10/23/21 14:31 DC Magnesium Hydroxide (Milk Of Magnesia) 2,400 mg 1X PRN PRN 10/24/21 06:00 10/25/21 05:59 Metoprolol Succinate (Toprol Xl) 12.5 mg DAILY 10/22/21 09:00 10/23/21 16:20 DC 10/23/21 08:26 12.5 MG Morphine Sulfate (Morphine Sulfate) 4 mg PRN Q2HR PRN 10/23/21 15:30 Morphine Sulfate 5 mg/Ropivacaine 60 ml/Epinephrine HCl 0.5 mg/Sodium Chloride 100 ml @ 100 mls/hr 1X ONCE 10/23/21 06:00 10/23/21 06:59 DC Multivitamins (Thera M Plus) 1 tab DAILY 10/24/21 09:00 10/24/21 09:07 1 TAB Neostigmine Grif[place] (Neostigmine Methylsulfate) 5 mg STK-MED ONCE 10/23/21 15:10 10/23/21 15:10 DC Non-Formulary Medication (Guaifenesin/ Dextromethorphan (Robitussin Cough-Chest Dm Liq)) 10 ml PRN Q4HRS PRN 10/21/21 17:00 UNV Nystatin (Mycostatin) 1 kina PRN Q12HRS PRN 10/21/21 21:00 Nystatin (Nystop) 1 kina DAILY 10/22/21 09:00 10/24/21 09:08 1 KINA Olanzapine (ZyPREXA ZYDIS) 5 mg PRN BID PRN 10/21/21 17:45 Ondansetron HCl (Zofran) 4 mg PRN Q4HRS PRN 10/23/21 15:30 Oxycodone/ Acetaminophen (Percocet 5/325) 2 tab PRN Q4HRS PRN 10/23/21 15:45 Pantoprazole Sodium (Protonix) 40 mg DAILYAC 10/22/21 07:30 10/24/21 09:06 40 MG Pioglitazone HCl (Actos) 30 mg DAILY 10/22/21 09:00 10/24/21 09:06 30 MG Polyethylene Glycol (miraLAX PACKET) 17 gm PRN DAILY PRN 10/23/21 15:30 Potassium Chloride (Klor-Con) 20 meq 1X ONCE 10/23/21 16:30 10/23/21 16:31 DC Potassium Citrate (Urocit-K) 10 meq BID 10/21/21 21:00 10/24/21 09:05 10 MEQ Propofol (Diprivan) 200 mg STK-MED ONCE 10/23/21 14:31 10/23/21 14:31 DC Rocuronium Grif[place] (Zemuron) 50 mg STK-MED ONCE 10/23/21 12:35 10/23/21 12:36 DC Senna/Docusate Sodium (Senna Plus) 1 tab DAILY 10/24/21 09:00 10/24/21 09:07 1 TAB Sevoflurane (Ultane) 90 ml STK-MED ONCE 10/23/21 14:31 10/23/21 14:31 DC Sodium Chloride 1,000 ml @ 75 mls/hr [id number] 10/23/21 15:30 Tamsulosin HCl (Flomax) 0.8 mg QHS 10/21/21 21:00 10/23/21 20:33 0.8 MG Throat Lozenges (Cepacol Sore Throat Lozenge) 1 adonay PRN Q4HRS PRN 10/21/21 20:00 Tobramycin Sulfate (Tobramycin Powder) 1.2 gm STK-MED ONCE 10/23/21 12:13 10/23/21 12:13 DC 10/23/21 13:46 1.2 GM Tranexamic Acid 50 ml @ 50 mls/hr 1X PERIOP ONCE 10/23/21 09:00 10/23/21 09:59 DC 10/23/21 13:30 50 MLS/HR Vancomycin HCl (Vancomycin) 1 gm STK-MED ONCE 10/23/21 12:35 10/23/21 12:35 DC 10/23/21 14:52 1 GM Vitamin D (Vitamin D3) 2,000 unit DAILY 10/22/21 09:00 10/24/21 09:04 2,000 UNIT Zinc Oxide (Zinc Oxide 20% Topical) 1 kina BID 10/21/21 21:00 10/24/21 09:08 1 KINA Zinc Sulfate (Orazinc) 220 mg DAILY 10/22/21 09:00 10/24/21 09:04 220 MG Lab Laboratory Tests Test 10/23/21 11:11 10/23/21 15:37 10/23/21 17:29 10/23/21 20:36 Glucose (Fingerstick) 98 mg/dL (70-99) 99 mg/dL (70-99) 127 mg/dL (70-99) 148 mg/dL (70-99) Test 10/24/21 05:25 10/24/21 07:21 White Blood Count 3.9 x10^3/uL (4.0-11.0) Red Blood Count 2.66 x10^6/uL (4.30-5.70) Hemoglobin 8.4 g/dL (13.0-17.5) Hematocrit 26.0 % (39.0-53.0) Mean Corpuscular Volume 98 fL (79-100) Mean Corpuscular Hemoglobin 31 pg (25-35) Mean Corpuscular Hemoglobin Concent 32 g/dL (31-37) Red Cell Distribution Width 17.5 % (11.5-14.5) Platelet Count 121 x10^3/uL (140-400) Sodium Level 138 mmol/L (136-145) Potassium Level 4.6 mmol/L (3.5-5.1) Chloride Level 100 mmol/L (98-107) Carbon Dioxide Level 29 mmol/L (21-32) Anion Gap 9 (6-14) Blood Urea Nitrogen 28 mg/dL (8-26) Creatinine 1.2 mg/dL (0.7-1.3) Estimated GFR (Cockcroft-Gault) 58.1 Glucose Level 115 mg/dL (70-99) Calcium Level 8.6 mg/dL (8.5-10.1) Glucose (Fingerstick) 117 mg/dL (70-99) Results All relevant outside records, renal labs, imaging studies, telemetry/EKG's were reviewed. Justicifation of Admission Dx: Justifications for Admission: Justification of Admission Dx: Yes ROSITA FERMIN MD Oct 24, 2021 10:36
--- NOTE | 2021-10-24 10:42 | PDOC ---
PULMONARY PROGRESS NOTES DATE: 10/24/21 TIME: 10:42 Subjective Patient not more short of air Used BiPAP last evening Currently on 2 L Vitals Vital Signs Date Time Temp Pulse Resp B/P (MAP) Pulse Ox O2 Delivery O2 Flow Rate FiO2 10/24/21 09:07 61 113/52 10/24/21 07:00 98.5 20 96 Nasal Cannula 5.0 98.5 General: Alert Lungs: Clear Cardiovascular: S1, S2 Abdomen: Soft Extremities: No Edema Labs Laboratory Tests Test 10/22/21 10:47 10/22/21 16:57 10/22/21 18:58 10/23/21 04:55 Glucose (Fingerstick) 119 mg/dL (70-99) 113 mg/dL (70-99) 146 mg/dL (70-99) White Blood Count 4.0 x10^3/uL (4.0-11.0) Red Blood Count 2.97 x10^6/uL (4.30-5.70) Hemoglobin 9.5 g/dL (13.0-17.5) Hematocrit 29.1 % (39.0-53.0) Mean Corpuscular Volume 98 fL (79-100) Mean Corpuscular Hemoglobin 32 pg (25-35) Mean Corpuscular Hemoglobin Concent 33 g/dL (31-37) Red Cell Distribution Width 17.8 % (11.5-14.5) Platelet Count 122 x10^3/uL (140-400) Sodium Level 139 mmol/L (136-145) Potassium Level 4.2 mmol/L (3.5-5.1) Chloride Level 103 mmol/L (98-107) Carbon Dioxide Level 28 mmol/L (21-32) Anion Gap 8 (6-14) Blood Urea Nitrogen 28 mg/dL (8-26) Creatinine 1.2 mg/dL (0.7-1.3) Estimated GFR (Cockcroft-Gault) 58.1 Glucose Level 98 mg/dL (70-99) Calcium Level 8.7 mg/dL (8.5-10.1) 25-Hydroxy Vitamin D Total 35.9 ng/mL (30-100) Test 10/23/21 07:33 10/23/21 11:11 10/23/21 15:37 10/23/21 17:29 Glucose (Fingerstick) 93 mg/dL (70-99) 98 mg/dL (70-99) 99 mg/dL (70-99) 127 mg/dL (70-99) Test 10/23/21 20:36 10/24/21 05:25 10/24/21 07:21 Glucose (Fingerstick) 148 mg/dL (70-99) 117 mg/dL (70-99) White Blood Count 3.9 x10^3/uL (4.0-11.0) Red Blood Count 2.66 x10^6/uL (4.30-5.70) Hemoglobin 8.4 g/dL (13.0-17.5) Hematocrit 26.0 % (39.0-53.0) Mean Corpuscular Volume 98 fL (79-100) Mean Corpuscular Hemoglobin 31 pg (25-35) Mean Corpuscular Hemoglobin Concent 32 g/dL (31-37) Red Cell Distribution Width 17.5 % (11.5-14.5) Platelet Count 121 x10^3/uL (140-400) Sodium Level 138 mmol/L (136-145) Potassium Level 4.6 mmol/L (3.5-5.1) Chloride Level 100 mmol/L (98-107) Carbon Dioxide Level 29 mmol/L (21-32) Anion Gap 9 (6-14) Blood Urea Nitrogen 28 mg/dL (8-26) Creatinine 1.2 mg/dL (0.7-1.3) Estimated GFR (Cockcroft-Gault) 58.1 Glucose Level 115 mg/dL (70-99) Calcium Level 8.6 mg/dL (8.5-10.1) Laboratory Tests Test 10/23/21 11:11 10/23/21 15:37 10/23/21 17:29 10/23/21 20:36 Glucose (Fingerstick) 98 mg/dL (70-99) 99 mg/dL (70-99) 127 mg/dL (70-99) 148 mg/dL (70-99) Test 10/24/21 05:25 10/24/21 07:21 White Blood Count 3.9 x10^3/uL (4.0-11.0) Red Blood Count 2.66 x10^6/uL (4.30-5.70) Hemoglobin 8.4 g/dL (13.0-17.5) Hematocrit 26.0 % (39.0-53.0) Mean Corpuscular Volume 98 fL (79-100) Mean Corpuscular Hemoglobin 31 pg (25-35) Mean Corpuscular Hemoglobin Concent 32 g/dL (31-37) Red Cell Distribution Width 17.5 % (11.5-14.5) Platelet Count 121 x10^3/uL (140-400) Sodium Level 138 mmol/L (136-145) Potassium Level 4.6 mmol/L (3.5-5.1) Chloride Level 100 mmol/L (98-107) Carbon Dioxide Level 29 mmol/L (21-32) Anion Gap 9 (6-14) Blood Urea Nitrogen 28 mg/dL (8-26) Creatinine 1.2 mg/dL (0.7-1.3) Estimated GFR (Cockcroft-Gault) 58.1 Glucose Level 115 mg/dL (70-99) Calcium Level 8.6 mg/dL (8.5-10.1) Glucose (Fingerstick) 117 mg/dL (70-99) Medications Active Scripts Medications Dose Route/Sig Max Daily Dose Days Date Category Dose Instructions Omeprazole 20 Mg Capsule.dr 1 Cap PO DAILY 10/21/21 Reported Nystatin-Triamcinolone Cream (Nystatin/Triamcin) 15 Gm Cream..g. 1 Abigail TP BID 10/21/21 Reported Nystatin 1 Each Powder.ea. 1 Each MC BID 10/21/21 Reported Hydrocodone-Apap 5-325 (Hydrocodone Bit/Acetaminophen) 1 Tab Tablet 1 Tab PO PRN Q6HRS PRN 10/21/21 Reported Mucinex Dm Er 600-30 Mg Tablet (Guaifenesin/Dextromethorphan) 1 Each Tab.er.12h 1 Tab PO PRN BID PRN 10 10/21/21 Reported Lantus (Insulin Glargine,Hum.rec.anlog) 100 Unit/1 Ml Vial 5 Unit SQ HS 10/21/21 Reported Eliquis (Apixaban) 5 Mg Tablet 5 Mg PO BID 10/21/21 Reported Aspirin 325 Mg Tablet 1 Tab PO DAILY 10/21/21 Reported Metoprolol Succinate ( Xl ) (Metoprolol Succinate) 25 Mg Tab.er.24h 12.5 Mg PO DAILY 30 12/19/21 Rx Amiodarone Hcl 200 Mg Tablet 200 Mg PO DAILY 30 08/20/21 Rx Zinc Sulfate 50 Mg Capsule 220 Mg PO DAILY 08/17/21 Reported Ascorbic Acid 500 Mg Tablet 500 Mg PO DAILY 08/17/21 Reported Robitussin Cough-Chest Dm Liq (Guaifenesin/Dextromethorphan) 237 Ml Liquid 10 Ml PO PRN Q4HRS PRN 08/17/21 Reported Miralax (Polyethylene Glycol 3350) 17 Gm Powd.pack 1 Packet PO DAILY 2 08/17/21 Reported dissolve in water Lasix (Furosemide) 40 Mg Tablet 1 Tab PO DAILY 30 08/17/21 Reported Colace (Docusate Sodium) 100 Mg Capsule 100 Mg PO PRN DAILY PRN 08/17/21 Reported Cepacol Sore Throat Lozenge (Benzocaine/Menthol) 1 Each Lozenge 1 Tab PO Q4HRS 3 08/17/21 Reported Calmoseptine Ointment (Menthol/Zinc Oxide) 3.5 Gm Oint.pack 3.5 Gm TP BID 08/17/21 Reported Hydrocodone-Apap 5-325 (Hydrocodone Bit/Acetaminophen) 1 Tab Tablet 2 Tab PO PRN Q6HRS PRN 07/14/21 Rx Potassium Citrate Er (Potassium Citrate) 15 Meq Tablet.er 1 Tab PO BID 30 06/25/21 Reported Flomax (Tamsulosin Hcl) 0.4 Mg Cap.er.24h 2 Cap PO QHS 06/25/21 Reported Allopurinol 100 Mg Tablet 1 Tab PO BID 06/25/21 Reported [Hydralazine Hcl] 50 MG Tablet 50 Mg PO TID 05/06/15 Rx Norvasc (Amlodipine Besylate) 10 Mg Tablet 10 Mg PO DAILY 05/06/15 Rx Lumigan (Bimatoprost) 2.5 Ml Drops 1 Drop EACHEYE QHS 05/03/15 Reported Vitamin D3 (Cholecalciferol (Vitamin D3)) 1,000 Unit Tablet 2 Tab PO DAILY 05/03/15 Reported Tricor (Fenofibrate Nanocrystallized) 145 Mg Tablet 1 Tab PO QHS 05/03/15 Reported Actos (Pioglitazone Hcl) 30 Mg Tablet 1 Tab PO DAILY 05/03/15 Reported Impression . IMPRESSION: 1. Abnormal chest x-ray, suspect secondary to congestive heart failure and atelectasis. 2. Chronic diastolic congestive heart failure. 3. Chronic obstructive pulmonary disease. 4. Obstructive sleep apnea-hypopnea syndrome. 5. Status post fall with an acute subcapital fracture of the right femoral neck. 6. Diabetes mellitus. 7. Hypertension. 8. History of COVID-19 pneumonia last year. 9. Obesity. 10. Acute kidney injury/chronic kidney disease. Plan . Updated 10/24 Continue oxygen per nasal cannula BiPAP nightly Follow cardiology input PT to decide if patient is safe for discharge home with home health update 10/23 Titrate FiO2 to keep O2 saturation 90%. incentive spirometer to use multiple times an hour. continue BiPAP at bedtime and during sleep and p.r.n. during day Cardiology consultation. 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 cont bronchodilator and inhaled corticosteroid. Monitor respiratory status closely postop. RAINER ASHLEY MD Oct 24, 2021 10:42
[2021-10-24 11:00] VITALS: BP 115/53
[2021-10-24] MEDS: ANTI-COAG MONITOR BY PHARMACY. MC PRN ×2 (11:53→12:14)
--- NOTE | 2021-10-24 12:28 | PDOC ---
ERON HORTON PHOTO MASK PATTERN GENERATOR 10/24/21 1227: CARDIO Progress Notes Date and Time Date of Service 10/24/21 Time of Evaluation 1020 Subjective Subjective: Other (c/o surgical pain) Vitals Vitals Vital Signs Date Time Temp Pulse Resp B/P (MAP) Pulse Ox O2 Delivery O2 Flow Rate FiO2 10/24/21 12:16 20 100 Nasal Cannula 2.0 10/24/21 11:00 98.4 69 115/53 (73) 98.4 Weight Weight [ ] Input and Output Intake and Output Intake and Output 10/24/21 07:00 Intake Total 440 ml Output Total 950 ml Balance -510 ml Intake Oral 40 ml IV Total 400 ml Output Urine Total 700 ml Estimated Blood Loss 250 ml Laboratory Labs Laboratory Tests Test 10/23/21 15:37 10/23/21 17:29 10/23/21 20:36 10/24/21 05:25 Glucose (Fingerstick) 99 mg/dL (70-99) 127 mg/dL (70-99) 148 mg/dL (70-99) White Blood Count 3.9 x10^3/uL (4.0-11.0) Red Blood Count 2.66 x10^6/uL (4.30-5.70) Hemoglobin 8.4 g/dL (13.0-17.5) Hematocrit 26.0 % (39.0-53.0) Mean Corpuscular Volume 98 fL (79-100) Mean Corpuscular Hemoglobin 31 pg (25-35) Mean Corpuscular Hemoglobin Concent 32 g/dL (31-37) Red Cell Distribution Width 17.5 % (11.5-14.5) Platelet Count 121 x10^3/uL (140-400) Sodium Level 138 mmol/L (136-145) Potassium Level 4.6 mmol/L (3.5-5.1) Chloride Level 100 mmol/L (98-107) Carbon Dioxide Level 29 mmol/L (21-32) Anion Gap 9 (6-14) Blood Urea Nitrogen 28 mg/dL (8-26) Creatinine 1.2 mg/dL (0.7-1.3) Estimated GFR (Cockcroft-Gault) 58.1 Glucose Level 115 mg/dL (70-99) Calcium Level 8.6 mg/dL (8.5-10.1) Test 10/24/21 07:21 10/24/21 11:04 Glucose (Fingerstick) 117 mg/dL (70-99) 127 mg/dL (70-99) Microbiology Micro Microbiology 10/21/21 Urine Culture - Final, Complete Proteus Mirabilis/Penneri Physical Exam HEENT: Neck Supple W Full Motion Chest: Symmetric LUNGS: Other (diminished bases) Heart: irregularly irregular (AFIB- rate controlled ) Abdomen: Soft N/T Extremities: Other (1-2+ bilateral LE edema ) Neurology: alert, oriented, follow commands Assessment Assessment 1. Traumatic mechanical fall with acute right femoral neck fracture; s/p open surgical intervention. Tolerated procedure well 2. Persistent AFIB; on Eliquis for stroke prophylaxis. Recent event monitor with 100% AFIB burden. Tele noted with 2.5 second pauses 10/22 at 1550. Metoprolol held. No further bradycardia or bradyarrhythmias noted 3. Acute on chronic respiratory failure secondary to acute on chronic diastolic heart failure; Recent echo with preserved LV systolic function. 4. Hypertension; controlled 5. Morbid obesity 6. Diabetes, II 7. JESUS MANUEL on CKD 8. Anemia, thrombocytopenia Recommendations Lasix therapy No BB with bradycardia, brief pause Will discontinue amiodarone as recent event monitor shows 100% AFIB burden. Eliquis for stroke prophylaxis Monitor hgb Supportive care Justicifation of Admission Dx: Justifications for Admission: Justification of Admission Dx: Yes MARGUERITE RESTREPO MD 10/25/21 0727: CARDIO Progress Notes Plan Plan Late entry for 10/24/2021 Patient seen and examined. Agree with above nurse practitioner note. Continue diuresis. Supportive care from a cardiac standpoint. ERON HORTON APRN Oct 24, 2021 12:27 MARGUERITE RESTREPO MD Oct 25, 2021 07:27
--- NOTE | 2021-10-24 12:31 | PDOC ---
[facility] PROGRESS NOTE Date of Service DOS: DATE: 10/24/21 TIME: 12:29 Chief Complaint Chief Complaint Abnormal chest x-ray, suspect secondary to congestive heart failure and atelectasis. Chronic diastolic congestive heart failure. Chronic obstructive pulmonary disease. Obstructive sleep apnea-hypopnea syndrome. Status post fall Acute subcapital fracture of the right femoral neck. Diabetes mellitus. Hypertension. History of COVID-19 pneumonia last year. Obesity. Acute kidney injury/chronic kidney disease. History of Present Illness History of Present Illness Mr Moore is an 81 yo male with PMHx COPD, paroxsymal afib, HTN, chronic diastolic CHF, EZIO previously intolerant of CPAP who comes from his assisted living facility, [facility], where he lives with his who has Alzheimer dementia, after a fall in the bathroom. X-rays show an acute displaced subcapital fracture of the right femoral neck. 10/22: He has been in the hospital since August. His pain is reasonably controlled right now. CKD stable per nephrology. Agree with pulmonology recommendations for preoperative cardiac evaluation given his paroxysmal A. fib. Is currently in sinus on exami 10/23 Patient evaluate examined at bedside. Eager for surgery today. We will follow up after surgery. Add on Cipro today for Proteus UTI. Otherwise continue current. Plan discussed bedside RN. 10/24 Patient evaluated examined at bedside. Postop day 1. Says his incisional pain is pretty well controlled. Did have some pain when working with physical therapy. Resuming Eliquis today. PT OT. Discussed with bedside RN. Vitals/I&O Vitals/I&O: Vital Signs Date Time Temp Pulse Resp B/P (MAP) Pulse Ox O2 Delivery O2 Flow Rate FiO2 10/24/21 12:16 20 100 Nasal Cannula 2.0 10/24/21 11:00 98.4 69 115/53 (73) 98.4 I & O 10/23/21 10/23/21 10/24/21 14:59 22:59 06:59 Intake Total 0 ml 340 ml 100 ml Output Total 650 ml 250 ml 50 ml Balance -650 ml 90 ml 50 ml Physical Exam General: Alert, Oriented X3, Cooperative, No acute distress Heart: Other (IRRR; tele AFIB) Lungs: Clear Abdomen: Soft, Other (obese) Extremities: Other (1-2+ bilateral LE edema ) Skin: Other (diffuse upper extremity bruising) Labs Labs: Laboratory Tests Test 10/23/21 15:37 10/23/21 17:29 10/23/21 20:36 10/24/21 05:25 Glucose (Fingerstick) 99 mg/dL (70-99) 127 mg/dL (70-99) 148 mg/dL (70-99) White Blood Count 3.9 x10^3/uL (4.0-11.0) Red Blood Count 2.66 x10^6/uL (4.30-5.70) Hemoglobin 8.4 g/dL (13.0-17.5) Hematocrit 26.0 % (39.0-53.0) Mean Corpuscular Volume 98 fL (79-100) Mean Corpuscular Hemoglobin 31 pg (25-35) Mean Corpuscular Hemoglobin Concent 32 g/dL (31-37) Red Cell Distribution Width 17.5 % (11.5-14.5) Platelet Count 121 x10^3/uL (140-400) Sodium Level 138 mmol/L (136-145) Potassium Level 4.6 mmol/L (3.5-5.1) Chloride Level 100 mmol/L (98-107) Carbon Dioxide Level 29 mmol/L (21-32) Anion Gap 9 (6-14) Blood Urea Nitrogen 28 mg/dL (8-26) Creatinine 1.2 mg/dL (0.7-1.3) Estimated GFR (Cockcroft-Gault) 58.1 Glucose Level 115 mg/dL (70-99) Calcium Level 8.6 mg/dL (8.5-10.1) Test 10/24/21 07:21 10/24/21 11:04 Glucose (Fingerstick) 117 mg/dL (70-99) 127 mg/dL (70-99) Assessment and Plan Assessmemt and Plan Problems Medical Problems: (1) Fracture of femoral neck, right Status: Acute (2) Respiratory failure with hypoxia Status: Acute Comment Review of Relevant I have reviewed the following items shirin (where applicable) has been applied. Medications: Current Medications Medications (Trade) Dose Ordered Sig/Nigel Route PRN Reason Start Time Stop Time Status Last Admin Dose Admin Vancomycin HCl (Vancomycin) 1 gm STK-MED ONCE .ROUTE 10/23/21 12:35 10/23/21 12:35 DC 2/21/22 14:52 Epinephrine HCl (Adrenalin) 1 mg STK-MED ONCE .ROUTE 10/23/21 12:35 10/23/21 12:35 DC 10/23/21 13:46 Multivitamins (Thera M Plus) 1 tab DAILY PO 10/24/21 09:00 10/24/21 09:07 Senna/Docusate Sodium (Senna Plus) 1 tab DAILY PO 10/24/21 09:00 10/24/21 09:07 Cefazolin Sodium 3 gm/Dextrose 100 ml @ 200 mls/hr Q6H IV 10/23/21 19:00 10/24/21 07:29 DC 10/24/21 06:30 Apixaban (Eliquis) 5 mg BID PO 10/24/21 09:00 10/24/21 09:06 Info (Anti-Coagulation Monitoring By Pharmacy) 1 each PRN DAILY PRN MC PER PROTOCOL 10/24/21 12:00 10/24/21 12:14 Justifications for Admission Other Justification LENIN VIRGEN MD Oct 24, 2021 12:31
[2021-10-24] MEDS ORDERED: FUROSEMIDE 40 MG/4 ML VIAL. IVP ONE (14:00)
[2021-10-24] MEDS ORDERED: POTASSIUM CHLORIDE 20 MEQ TABLET.ER. PO ONE (14:00)
[2021-10-24 15:00] VITALS: BP 111/47
[2021-10-24] MEDS ORDERED: BISACODYL 10 MG SUPP.RECT. PR PRN (16:00)
[2021-10-24 19:00] VITALS: BP 105/61
[2021-10-24] MEDS: INSULIN GLARGINE SYRINGE. SQ SCH (21:00)
--- NOTE | 2021-10-24 21:00 | NUR ---
NURSING NOTE Pt assessment completed at this time. Pts right hip YULIYA dressing noted to be saturated and YULIYA control box was flashing orange for error. New YULIYA dressing to be applied when one can be located, none on unit at this time. Pt refusing to turn in bed, education provided regarding need for turning for pressure ulcer prevention. Pt continues to refuse. Addendum: 10/25/21 at 0217 by NIMISHA JAUREGUI RN At 0005, pt was a max 2 person turn to left side to get right hip YULIYA dressing changed. Pt refused to stay turned, turned back to supine. Zinc oxide cream applied to coccyx when pt turned. Pts coccyx is red with skin shearing/peeling noted. Pt also demands that urinal stay between his legs, and that we not take it out until it needs to be emptied. Asked pt if he can just call us and we will help him place the urinal to urinate, but pt refuses and demands urinal to be put back. Education on pressure ulcer development at site of urinal explained to pt, pt refuses teaching.
[2021-10-24] MEDS: TAMSULOSIN 0.4 MG CAP.ER.24H. PO SCH (21:49)
[2021-10-24] MEDS: LATANOPROST 0.005% OPHTH SOLUTION 2.5ML BOTTLE. OU SCH (21:50)
[2021-10-24 23:00] VITALS: BP 114/55
[2021-10-25] VITALS (10 sets, daily range): BP systolic 102–124; BP diastolic 47–57
[2021-10-25] MEDS: ZINC OXIDE 20% TOPICAL OINTMENT 28GM TUBE. TP SCH ×3 (00:05→21:00)
[2021-10-25] MEDS: HYDROcodone/APAP 5/325MG 1 TAB TABLET PO PRN ×2 (06:07→11:49)
[2021-10-25] MEDS: IV 1/2 NORMAL SALINE 1,000 ML IV SCH ×2 (07:30→20:50)
[2021-10-25] MEDS: INSULIN LISPRO 300 UNITS/3 ML VIAL. SQ SCH ×3 (08:00→17:00)
[2021-10-25 08:01] LABS: HEMATOCRIT 22.9 % (39.0-53.0); HEMOGLOBIN 7.5 g/dL (13.0-17.5); RED BLOOD COUNT 2.37 x10^6/uL (4.30-5.70); RED CELL DISTRIBUTION WIDTH 16.6 % (11.5-14.5); WHITE BLOOD COUNT 2.6 x10^3/uL (4.0-11.0)
[2021-10-25 08:22] LABS: CALCIUM 8.5 mg/dL (8.5-10.1); CREATININE 1.4 mg/dL (0.7-1.3); GFR 48.6; POTASSIUM 4.2 mmol/L (3.5-5.1)
[2021-10-25] MEDS: IPRATRPIUM/ALBUTEROL 0.5/2.5MG 3 ML NEBU. NEB SCH ×4 (08:41→20:00)
[2021-10-25] MEDS: BUDESONIDE 0.5 MG/2 ML NEBU. NEB SCH ×2 (08:41→20:00)
--- NOTE | 2021-10-25 08:45 | PDOC ---
PULMONARY PROGRESS NOTES DATE: 10/25/21 TIME: 08:42 Subjective Patient is resting comfortably on 2 L nasal cannula, denies any increased shortness of breath Reports nonproductive cough Patient reports that he wore BiPAP last night, reports that his breathing is significantly better today Afebrile, no overnight concerns Vitals Vital Signs Date Time Temp Pulse Resp B/P (MAP) Pulse Ox O2 Delivery O2 Flow Rate FiO2 10/25/21 07:00 97.9 72 20 109/54 (72) 95 BiPAP/CPAP 97.9 10/25/21 06:37 2.0 ROS: No Nausea, No Chest Pain, No Abdominal Pain General: Alert Lungs: Clear Cardiovascular: S1, S2 Abdomen: Soft Extremities: No Edema Skin: Warm, Dry Labs Laboratory Tests Test 10/23/21 11:11 10/23/21 15:37 10/23/21 17:29 10/23/21 20:36 Glucose (Fingerstick) 98 mg/dL (70-99) 99 mg/dL (70-99) 127 mg/dL (70-99) 148 mg/dL (70-99) Test 10/24/21 05:25 10/24/21 07:21 10/24/21 11:04 10/24/21 17:02 White Blood Count 3.9 x10^3/uL (4.0-11.0) Red Blood Count 2.66 x10^6/uL (4.30-5.70) Hemoglobin 8.4 g/dL (13.0-17.5) Hematocrit 26.0 % (39.0-53.0) Mean Corpuscular Volume 98 fL (79-100) Mean Corpuscular Hemoglobin 31 pg (25-35) Mean Corpuscular Hemoglobin Concent 32 g/dL (31-37) Red Cell Distribution Width 17.5 % (11.5-14.5) Platelet Count 121 x10^3/uL (140-400) Sodium Level 138 mmol/L (136-145) Potassium Level 4.6 mmol/L (3.5-5.1) Chloride Level 100 mmol/L (98-107) Carbon Dioxide Level 29 mmol/L (21-32) Anion Gap 9 (6-14) Blood Urea Nitrogen 28 mg/dL (8-26) Creatinine 1.2 mg/dL (0.7-1.3) Estimated GFR (Cockcroft-Gault) 58.1 Glucose Level 115 mg/dL (70-99) Calcium Level 8.6 mg/dL (8.5-10.1) Glucose (Fingerstick) 117 mg/dL (70-99) 127 mg/dL (70-99) 153 mg/dL (70-99) Test 10/24/21 20:48 10/25/21 06:30 10/25/21 07:29 Glucose (Fingerstick) 135 mg/dL (70-99) 97 mg/dL (70-99) White Blood Count 2.6 x10^3/uL (4.0-11.0) Red Blood Count 2.37 x10^6/uL (4.30-5.70) Hemoglobin 7.5 g/dL (13.0-17.5) Hematocrit 22.9 % (39.0-53.0) Mean Corpuscular Volume 97 fL (79-100) Mean Corpuscular Hemoglobin 32 pg (25-35) Mean Corpuscular Hemoglobin Concent 33 g/dL (31-37) Red Cell Distribution Width 16.6 % (11.5-14.5) Platelet Count 114 x10^3/uL (140-400) Laboratory Tests Test 10/24/21 11:04 10/24/21 17:02 10/24/21 20:48 10/25/21 06:30 Glucose (Fingerstick) 127 mg/dL (70-99) 153 mg/dL (70-99) 135 mg/dL (70-99) White Blood Count 2.6 x10^3/uL (4.0-11.0) Red Blood Count 2.37 x10^6/uL (4.30-5.70) Hemoglobin 7.5 g/dL (13.0-17.5) Hematocrit 22.9 % (39.0-53.0) Mean Corpuscular Volume 97 fL (79-100) Mean Corpuscular Hemoglobin 32 pg (25-35) Mean Corpuscular Hemoglobin Concent 33 g/dL (31-37) Red Cell Distribution Width 16.6 % (11.5-14.5) Platelet Count 114 x10^3/uL (140-400) Test 10/25/21 07:29 Glucose (Fingerstick) 97 mg/dL (70-99) Medications Active Scripts Medications Dose Route/Sig Max Daily Dose Days Date Category Dose Instructions Omeprazole 20 Mg Capsule.dr 1 Cap PO DAILY 10/21/21 Reported Nystatin-Triamcinolone Cream (Nystatin/Triamcin) 15 Gm Cream..g. 1 Abigail TP BID 10/21/21 Reported Nystatin 1 Each Powder.ea. 1 Each MC BID 10/21/21 Reported Hydrocodone-Apap 5-325 (Hydrocodone Bit/Acetaminophen) 1 Tab Tablet 1 Tab PO PRN Q6HRS PRN 10/21/21 Reported Mucinex Dm Er 600-30 Mg Tablet (Guaifenesin/Dextromethorphan) 1 Each Tab.er.12h 1 Tab PO PRN BID PRN 10 10/21/21 Reported Lantus (Insulin Glargine,Hum.rec.anlog) 100 Unit/1 Ml Vial 5 Unit SQ HS 10/21/21 Reported Eliquis (Apixaban) 5 Mg Tablet 5 Mg PO BID 10/21/21 Reported Aspirin 325 Mg Tablet 1 Tab PO DAILY 10/21/21 Reported Metoprolol Succinate ( Xl ) (Metoprolol Succinate) 25 Mg Tab.er.24h 12.5 Mg PO DAILY 30 08/20/21 Rx Amiodarone Hcl 200 Mg Tablet 200 Mg PO DAILY 30 08/20/21 Rx Zinc Sulfate 50 Mg Capsule 220 Mg PO DAILY 08/17/21 Reported Ascorbic Acid 500 Mg Tablet 500 Mg PO DAILY 08/17/21 Reported Robitussin Cough-Chest Dm Liq (Guaifenesin/Dextromethorphan) 237 Ml Liquid 10 Ml PO PRN Q4HRS PRN 08/17/21 Reported Miralax (Polyethylene Glycol 3350) 17 Gm Powd.pack 1 Packet PO DAILY 2 08/17/21 Reported dissolve in water Lasix (Furosemide) 40 Mg Tablet 1 Tab PO DAILY 30 08/17/21 Reported Colace (Docusate Sodium) 100 Mg Capsule 100 Mg PO PRN DAILY PRN 08/17/21 Reported Cepacol Sore Throat Lozenge (Benzocaine/Menthol) 1 Each Lozenge 1 Tab PO Q4HRS 3 08/17/21 Reported Calmoseptine Ointment (Menthol/Zinc Oxide) 3.5 Gm Oint.pack 3.5 Gm TP BID 08/17/21 Reported Hydrocodone-Apap 5-325 (Hydrocodone Bit/Acetaminophen) 1 Tab Tablet 2 Tab PO PRN Q6HRS PRN 07/14/21 Rx Potassium Citrate Er (Potassium Citrate) 15 Meq Tablet.er 1 Tab PO BID 30 06/25/21 Reported Flomax (Tamsulosin Hcl) 0.4 Mg Cap.er.24h 2 Cap PO QHS 06/25/21 Reported Allopurinol 100 Mg Tablet 1 Tab PO BID 06/25/21 Reported [Hydralazine Hcl] 50 MG Tablet 50 Mg PO TID 05/06/15 Rx Norvasc (Amlodipine Besylate) 10 Mg Tablet 10 Mg PO DAILY 05/06/15 Rx Lumigan (Bimatoprost) 2.5 Ml Drops 1 Drop EACHEYE QHS 05/03/15 Reported Vitamin D3 (Cholecalciferol (Vitamin D3)) 1,000 Unit Tablet 2 Tab PO DAILY 05/03/15 Reported Tricor (Fenofibrate Nanocrystallized) 145 Mg Tablet 1 Tab PO QHS 05/03/15 Reported Actos (Pioglitazone Hcl) 30 Mg Tablet 1 Tab PO DAILY 05/03/15 Reported Impression . IMPRESSION: 1. Abnormal chest x-ray, suspect secondary to congestive heart failure and atelectasis. 2. Chronic diastolic congestive heart failure. 3. Chronic obstructive pulmonary disease. 4. Obstructive sleep apnea-hypopnea syndrome. 5. Status post fall with an acute subcapital fracture of the right femoral neck.--- Now status post right hip arthroplasty 6. Diabetes mellitus. 7. Hypertension. 8. History of COVID-19 pneumonia last year. 9. Obesity. 10. Acute kidney injury/chronic kidney disease. Plan . Updated 10/25/2021 Continue supplemental oxygen oxygen saturation stayed 92%, currently cannula, wean as tolerated Bronchodilators as needed BiPAP at night Follow cardiology recommendations: Continue Eliquis, beta-jeronimo in the setting of bradycardia, echo shows preserved EF Diabetes per primary care Monitor renal function Follow orthopedic recommendations: Status post right hip arthroplasty 10/23/21 Monitor hemoglobin: Anemia/thrombocytopenia Physical therapy/Occupational Therapy Social work for DC planning Discussed with RN Updated 10/24 Continue oxygen per nasal cannula BiPAP nightly Follow cardiology input PT to decide if patient is safe for discharge home with home health update 10/23 Titrate FiO2 to keep O2 saturation 90%. incentive spirometer to use multiple times an hour. continue BiPAP at bedtime and during sleep and p.r.n. during day Cardiology consultation. He does have paroxysmal atrial fibrillation and chronic diastolic congestive heart failure. cont bronchodilator and inhaled corticosteroid. Monitor respiratory status closely postop. RAINER ASHLEY MD Oct 25, 2021 08:45
[2021-10-25] MEDS: FENOFIBRATE,MICRONIZED 134 MG CAPSULE PO SCH (08:48)
[2021-10-25] MEDS: CIPROFLOXACIN HCL 250 MG TABLET. PO SCH ×2 (08:48→21:42)
[2021-10-25] MEDS: POTASSIUM CITRATE 10 MEQ TABLET.ER PO SCH ×2 (08:48→21:42)
[2021-10-25] MEDS: PIOGLITAZONE 15 MG TABLET. PO SCH (08:48)
[2021-10-25] MEDS: MULTIVITAMIN with MINERAL TABLET. PO SCH (08:48)
[2021-10-25] MEDS: APIXABAN 5 MG TABLET. PO SCH ×2 (08:48→21:44)
[2021-10-25] MEDS: ZINC SULFATE 220 MG CAPSULE. PO SCH (08:49)
[2021-10-25] MEDS: PANTOPRAZOLE 40 MG TABLET.DR. PO SCH (08:49)
[2021-10-25] MEDS: ASPIRIN 325 MG TABLET PO SCH (08:49)
[2021-10-25] MEDS: ASCORBIC ACID 500 MG TABLET PO SCH (08:49)
[2021-10-25] MEDS: CHOLECALCIFEROL (VITAMIN D3) 1,000 UNIT TABLET PO SCH (08:49)
[2021-10-25] MEDS: SENNOSIDES/DOCUSATE 8.6/50MG TABLET. PO SCH (08:49)
[2021-10-25] MEDS: ALLOPURINOL 100 MG TABLET. PO SCH ×2 (08:50→21:42)
[2021-10-25] MEDS: POLYETHYLENE GLYCOL 3350 17 GM PACKET. PO SCH ×2 (08:50→09:00)
[2021-10-25] MEDS: FUROSEMIDE 40 MG TABLET. PO SCH (08:50)
[2021-10-25] MEDS: NYSTATIN TOPICAL POWDER 15GM BOTTLE. TP SCH (08:51)
--- NOTE | 2021-10-25 10:13 | PDOC ---
DATE OF SERVICE DATE: 10/25/21 TIME: 10:02 SUBJECTIVE ROS Denies N/V, No Urinary complaints Reports his leg is burning - feels like on fire OBJECTIVE Vital Signs Vital Signs Date Time Temp Pulse Resp B/P (MAP) Pulse Ox O2 Delivery O2 Flow Rate FiO2 10/25/21 08:50 72 109/54 10/25/21 08:43 94 Nasal Cannula 2.0 10/25/21 07:00 97.9 20 97.9 I & 0 Intake and Output 10/25/21 07:00 Intake Total 250 ml Output Total 1000 ml Balance -750 ml Intake Oral 250 ml Output Urine Total 1000 ml PHYSICAL EXAM Physical Exam GENERAL NAD HEENT: OM moist . On o2 by NC NECK: supple LUNGS: Decreased breath sound at bases. Non labored CARDIAC: Without S3 or rub. ABDOMEN: Obese. Bowel sounds are present. Nontender. EXTREMITIES: Without edema.Changes of CVI Bilat LE ++ NEURO- Grossly normal PSYCHIATRIC: Follows appropriately. No Maher, No CXVA or SP tenderness DERM No Rash, changes of CVI + DIAGNOSIS/ASSESSMENT Assessment & Plan JESUS MANUEL - Vasomotor , Resolved to baseline but trended up again. Recd IV Lasix x 1 on 10/24 also on PO lasix- cardiology managing . Non Oliguric . DC IVF , encourage PO intake Hx of JESUS MANUEL in 2014 . Baseline Cr 1.2 seth . Supportive care, avoid nephrotoxins . 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 He recalls following with me at [place] office ; not recently due to resolution of JESUS MANUEL and stable renal function Anemia- Hgb trending down . Defer to primary Acute subcapital fracture of the right femoral neck after a fall . Underwent right hip open treatment of femoral fracture, proximal end, neck, prosthetic replacement on 10/23 Abnormal chest x-ray, suspect secondary to congestive heart failure and atelectasis. Chronic diastolic congestive heart failure- On PO Lasix Hypertension- BP low . on Furosemide with other antihypertensives . Cardiology managing BPH- On Tamsulosin Chronic obstructive pulmonary disease. Obstructive sleep apnea-hypopnea syndrome. Diabetes mellitus. History of COVID-19 pneumonia last year. Obesity. COMMENT/RELEVANT DATA Meds Current Medications Medications (Trade) Dose Ordered Sig/Nigel Start Time Stop Time Status Last Admin Dose Admin Acetaminophen (Tylenol) 650 mg PRN Q6HRS PRN 10/21/21 17:45 Acetaminophen/ Hydrocodone Bitart (Lortab 5/325) 2 tab PRN Q6HRS PRN 10/21/21 17:00 10/25/21 06:07 2 TAB Albuterol/ Ipratropium (Duoneb) 3 ml RTQID 10/22/21 08:00 10/25/21 08:41 3 ML Allopurinol (Zyloprim) 100 mg BID 10/21/21 21:00 10/25/21 08:50 100 MG Amiodarone HCl (Cordarone) 200 mg DAILY 10/22/21 09:00 10/24/21 12:27 DC 10/24/21 09:07 200 MG Amlodipine Besylate (Norvasc) 10 mg DAILY 10/22/21 09:00 10/25/21 08:49 10 MG Apixaban (Eliquis) 5 mg BID 10/24/21 09:00 10/25/21 08:48 5 MG Ascorbic Acid (Vitamin C) 500 mg DAILY 10/22/21 09:00 10/25/21 08:49 500 MG Aspirin (Daria Aspirin) 325 mg DAILY 10/22/21 09:00 10/25/21 08:49 325 MG Bisacodyl (Dulcolax Supp) 10 mg 1X PRN PRN 10/24/21 16:00 10/25/21 15:59 Budesonide (Pulmicort) 0.5 mg RTBID 10/22/21 08:00 10/25/21 08:41 0.5 MG Cefazolin Sodium (Ancef) 3 gm 1X PREOP PRN 10/23/21 06:00 10/23/21 18:00 Cancel Cefazolin Sodium 3 gm/Dextrose 100 ml @ 200 mls/hr Q6H 10/23/21 19:00 10/24/21 07:29 DC 10/24/21 06:30 200 MLS/HR Ciprofloxacin (Cipro) 500 mg BID 10/23/21 12:00 10/25/21 08:48 500 MG Dexamethasone Sodium Phosphate (Decadron) 4 mg STK-MED ONCE 10/23/21 14:31 10/23/21 14:31 DC Dextrose (Dextrose 50%-Water Syringe) 12.5 gm PRN Q15MIN PRN 10/23/21 15:30 Dextrose (Iv Dextrose 5%) 250 ml PRN Q15MIN PRN 10/23/21 15:30 Docusate Sodium (Colace) 100 mg PRN DAILY PRN 10/21/21 17:00 Epinephrine HCl (Adrenalin) 1 mg STK-MED ONCE 10/23/21 12:35 10/23/21 12:35 DC 10/23/21 13:46 1 MG Fenofibrate (Lofibra) 134 mg DAILY 10/22/21 09:00 10/25/21 08:48 134 MG Fentanyl Citrate (Fentanyl 2ml Vial) 50 mcg PRN Q1HR PRN 10/23/21 15:30 Fentanyl Citrate (Fentanyl 5ml Vial) 250 mcg STK-MED ONCE 10/23/21 12:35 10/23/21 12:35 DC Furosemide (Lasix) 40 mg 1X ONCE 10/24/21 14:00 10/24/21 14:01 DC 10/24/21 17:39 40 MG Glycopyrrolate (Robinul) 1 mg STK-MED ONCE 10/23/21 15:10 10/23/21 15:10 DC Guaifenesin (MUCINEX ER with DM) 1 tab PRN BID PRN 10/21/21 17:00 Hydralazine HCl (Apresoline) 50 mg TID 10/21/21 21:00 10/25/21 08:50 50 MG Info (Anti-Coagulation Monitoring By Pharmacy) 1 each PRN DAILY PRN 10/24/21 12:00 10/24/21 12:14 1 EACH Insulin Glargine (Lantus Syringe) 5 unit HS 10/21/21 21:00 Insulin Human Lispro (HumaLOG) 0-9 UNITS TIDWMEALS 10/22/21 08:00 Latanoprost (Xalatan) 1 drop QHS 10/21/21 21:00 10/24/21 21:50 1 DROP Lidocaine HCl (Lidocaine Pf 2% Vial) 5 ml STK-MED ONCE 10/23/21 14:31 10/23/21 14:31 DC Magnesium Hydroxide (Milk Of Magnesia) 2,400 mg 1X PRN PRN 10/24/21 06:00 10/25/21 05:59 DC Metoprolol Succinate (Toprol Xl) 12.5 mg DAILY 10/22/21 09:00 10/23/21 16:20 DC 10/23/21 08:26 12.5 MG Morphine Sulfate (Morphine Sulfate) 4 mg PRN Q2HR PRN 10/23/21 15:30 Morphine Sulfate 5 mg/Ropivacaine 60 ml/Epinephrine HCl 0.5 mg/Sodium Chloride 100 ml @ 100 mls/hr 1X ONCE 10/23/21 06:00 10/23/21 06:59 DC Multivitamins (Thera M Plus) 1 tab DAILY 10/24/21 09:00 10/25/21 08:48 1 TAB Neostigmine Mastic (Neostigmine Methylsulfate) 5 mg STK-MED ONCE 10/23/21 15:10 10/23/21 15:10 DC Non-Formulary Medication (Guaifenesin/ Dextromethorphan (Robitussin Cough-Chest Dm Liq)) 10 ml PRN Q4HRS PRN 10/21/21 17:00 UNV Nystatin (Mycostatin) 1 kina PRN Q12HRS PRN 10/21/21 21:00 Nystatin (Nystop) 1 kina DAILY 10/22/21 09:00 10/25/21 08:51 1 KINA Olanzapine (ZyPREXA ZYDIS) 5 mg PRN BID PRN 10/21/21 17:45 Ondansetron HCl (Zofran) 4 mg PRN Q4HRS PRN 10/23/21 15:30 Oxycodone/ Acetaminophen (Percocet 5/325) 2 tab PRN Q4HRS PRN 10/23/21 15:45 Pantoprazole Sodium (Protonix) 40 mg DAILYAC 10/22/21 07:30 10/25/21 08:49 40 MG Pioglitazone HCl (Actos) 30 mg DAILY 10/22/21 09:00 10/25/21 08:48 30 MG Polyethylene Glycol (miraLAX PACKET) 17 gm PRN DAILY PRN 10/23/21 15:30 Potassium Chloride (Klor-Con) 20 meq 1X ONCE 10/24/21 14:00 10/24/21 14:01 DC 10/24/21 17:38 20 MEQ Potassium Citrate (Urocit-K) 10 meq BID 10/21/21 21:00 10/25/21 08:48 10 MEQ Propofol (Diprivan) 200 mg STK-MED ONCE 10/23/21 14:31 10/23/21 14:31 DC Rocuronium Mastic (Zemuron) 50 mg STK-MED ONCE 10/23/21 12:35 10/23/21 12:36 DC Senna/Docusate Sodium (Senna Plus) 1 tab DAILY 10/24/21 09:00 10/25/21 08:49 1 TAB Sevoflurane (Ultane) 90 ml STK-MED ONCE 10/23/21 14:31 10/23/21 14:31 DC Sodium Chloride 1,000 ml @ 75 mls/hr [id number] 10/23/21 15:30 Tamsulosin HCl (Flomax) 0.8 mg QHS 10/21/21 21:00 10/24/21 21:49 0.8 MG Throat Lozenges (Cepacol Sore Throat Lozenge) 1 adonay PRN Q4HRS PRN 10/21/21 20:00 Tobramycin Sulfate (Tobramycin Powder) 1.2 gm STK-MED ONCE 10/23/21 12:13 10/23/21 12:13 DC 10/23/21 13:46 1.2 GM Tranexamic Acid 50 ml @ 50 mls/hr 1X PERIOP ONCE 10/23/21 09:00 10/23/21 09:59 DC 10/23/21 13:30 50 MLS/HR Vancomycin HCl (Vancomycin) 1 gm STK-MED ONCE 10/23/21 12:35 10/23/21 12:35 DC 10/23/21 14:52 1 GM Vitamin D (Vitamin D3) 2,000 unit DAILY 10/22/21 09:00 10/25/21 08:49 2,000 UNIT Zinc Oxide (Zinc Oxide 20% Topical) 1 kina BID 10/21/21 21:00 10/25/21 08:51 1 KINA Zinc Sulfate (Orazinc) 220 mg DAILY 10/22/21 09:00 10/25/21 08:49 220 MG Lab Laboratory Tests Test 10/24/21 11:04 10/24/21 17:02 10/24/21 20:48 10/25/21 06:30 Glucose (Fingerstick) 127 mg/dL (70-99) 153 mg/dL (70-99) 135 mg/dL (70-99) White Blood Count 2.6 x10^3/uL (4.0-11.0) Red Blood Count 2.37 x10^6/uL (4.30-5.70) Hemoglobin 7.5 g/dL (13.0-17.5) Hematocrit 22.9 % (39.0-53.0) Mean Corpuscular Volume 97 fL (79-100) Mean Corpuscular Hemoglobin 32 pg (25-35) Mean Corpuscular Hemoglobin Concent 33 g/dL (31-37) Red Cell Distribution Width 16.6 % (11.5-14.5) Platelet Count 114 x10^3/uL (140-400) Sodium Level 136 mmol/L (136-145) Potassium Level 4.2 mmol/L (3.5-5.1) Chloride Level 99 mmol/L (98-107) Carbon Dioxide Level 31 mmol/L (21-32) Anion Gap 6 (6-14) Blood Urea Nitrogen 32 mg/dL (8-26) Creatinine 1.4 mg/dL (0.7-1.3) Estimated GFR (Cockcroft-Gault) 48.6 Glucose Level 90 mg/dL (70-99) Calcium Level 8.5 mg/dL (8.5-10.1) Test 10/25/21 07:29 Glucose (Fingerstick) 97 mg/dL (70-99) Results All relevant outside records, renal labs, imaging studies, telemetry/EKG's were reviewed. Justicifation of Admission Dx: Justifications for Admission: Justification of Admission Dx: Yes ROSITA FERMIN MD Oct 25, 2021 10:13
--- NOTE | 2021-10-25 11:44 | PDOC ---
[employer] PROGRESS NOTE Date of Service DOS: DATE: 10/25/21 TIME: 11:42 Chief Complaint Chief Complaint Abnormal chest x-ray, suspect secondary to congestive heart failure and atelectasis. Chronic diastolic congestive heart failure. Chronic obstructive pulmonary disease. Obstructive sleep apnea-hypopnea syndrome. Status post fall Acute subcapital fracture of the right femoral neck. Diabetes mellitus. Hypertension. History of COVID-19 pneumonia last year. Obesity. Acute kidney injury/chronic kidney disease. History of Present Illness History of Present Illness Mr Moore is an 81 yo male with PMHx COPD, paroxsymal afib, HTN, chronic diastolic CHF, EZIO previously intolerant of CPAP who comes from his assisted living facility, [facility], where he lives with his who has Alzheimer dementia, after a fall in the bathroom. X-rays show an acute displaced subcapital fracture of the right femoral neck. 10/22: He has been in the hospital since August. His pain is reasonably controlled right now. CKD stable per nephrology. Agree with pulmonology recommendations for preoperative cardiac evaluation given his paroxysmal A. fib. Is currently in sinus on exami 10/23 Patient evaluate examined at bedside. Eager for surgery today. We will follow up after surgery. Add on Cipro today for Proteus UTI. Otherwise continue current. Plan discussed bedside RN. 10/24 Patient evaluated examined at bedside. Postop day 1. Says his incisional pain is pretty well controlled. Did have some pain when working with physical therapy. Resuming Eliquis today. PT OT. Discussed with bedside RN. 10/25 Evaluate examined at bedside. Postop day 2. Resting in bed pain controlled. Continue working with therapy. Will need placement. Transfer to the joint floor today. Plan discussed bedside RN Vitals/I&O Vitals/I&O: Vital Signs Date Time Temp Pulse Resp B/P (MAP) Pulse Ox O2 Delivery O2 Flow Rate FiO2 10/25/21 11:00 97.6 66 20 107/47 (67) 96 BiPAP/CPAP 97.6 10/25/21 08:43 2.0 I & O 10/24/21 10/24/21 10/25/21 14:59 22:59 06:59 Intake Total 250 ml Output Total 300 ml 700 ml Balance -50 ml -700 ml Physical Exam General: Alert, Oriented X3, Cooperative, No acute distress Heart: Other (IRRR; tele AFIB) Lungs: Clear Abdomen: Soft, Other (obese) Extremities: Other (1-2+ bilateral LE edema ) Skin: Other (diffuse upper extremity bruising) Labs Labs: Laboratory Tests Test 10/24/21 17:02 10/24/21 20:48 10/25/21 06:30 10/25/21 07:29 Glucose (Fingerstick) 153 mg/dL (70-99) 135 mg/dL (70-99) 97 mg/dL (70-99) White Blood Count 2.6 x10^3/uL (4.0-11.0) Red Blood Count 2.37 x10^6/uL (4.30-5.70) Hemoglobin 7.5 g/dL (13.0-17.5) Hematocrit 22.9 % (39.0-53.0) Mean Corpuscular Volume 97 fL (79-100) Mean Corpuscular Hemoglobin 32 pg (25-35) Mean Corpuscular Hemoglobin Concent 33 g/dL (31-37) Red Cell Distribution Width 16.6 % (11.5-14.5) Platelet Count 114 x10^3/uL (140-400) Sodium Level 136 mmol/L (136-145) Potassium Level 4.2 mmol/L (3.5-5.1) Chloride Level 99 mmol/L (98-107) Carbon Dioxide Level 31 mmol/L (21-32) Anion Gap 6 (6-14) Blood Urea Nitrogen 32 mg/dL (8-26) Creatinine 1.4 mg/dL (0.7-1.3) Estimated GFR (Cockcroft-Gault) 48.6 Glucose Level 90 mg/dL (70-99) Calcium Level 8.5 mg/dL (8.5-10.1) Test 10/25/21 11:08 Glucose (Fingerstick) 137 mg/dL (70-99) Assessment and Plan Assessmemt and Plan Problems Medical Problems: (1) Fracture of femoral neck, right Status: Acute (2) Respiratory failure with hypoxia Status: Acute Comment Review of Relevant I have reviewed the following items shirin (where applicable) has been applied. Medications: Current Medications Medications (Trade) Dose Ordered Sig/Nigel Route PRN Reason Start Time Stop Time Status Last Admin Dose Admin Info (Anti-Coagulation Monitoring By Pharmacy) 1 each PRN DAILY PRN MC PER PROTOCOL 10/24/21 12:00 10/24/21 12:14 Furosemide (Lasix) 40 mg 1X ONCE IVP 10/24/21 14:00 10/24/21 14:01 DC 10/24/21 17:39 Potassium Chloride (Klor-Con) 20 meq 1X ONCE PO 10/24/21 14:00 10/24/21 14:01 DC 10/24/21 17:38 Justifications for Admission Other Justification LENIN VIRGEN MD Oct 25, 2021 11:44
[2021-10-25] MEDS: ANTI-COAG MONITOR BY PHARMACY. MC PRN (13:15)
--- NOTE | 2021-10-25 14:24 | PDOC ---
PROGRESS NOTES Date of Service DATE: 10/25/21 TIME: 14:21 Subjective Subjective Mild hip pain. Feels better than before surgery. Objective Vital Signs Vital Signs Date Time Temp Pulse Resp B/P (MAP) Pulse Ox O2 Delivery O2 Flow Rate FiO2 10/25/21 11:49 96 Nasal Cannula 2.0 10/25/21 11:00 97.6 66 20 107/47 (67) 97.6 Physical Exam Dressing dry and intact. Calf soft and NT. Good AROM and sensation at foot with no evidence of neurovascular injury. Labs Laboratory Tests Test 10/23/21 15:37 10/23/21 17:29 10/23/21 20:36 10/24/21 05:25 Glucose (Fingerstick) 99 mg/dL (70-99) 127 mg/dL (70-99) 148 mg/dL (70-99) White Blood Count 3.9 x10^3/uL (4.0-11.0) Red Blood Count 2.66 x10^6/uL (4.30-5.70) Hemoglobin 8.4 g/dL (13.0-17.5) Hematocrit 26.0 % (39.0-53.0) Mean Corpuscular Volume 98 fL (79-100) Mean Corpuscular Hemoglobin 31 pg (25-35) Mean Corpuscular Hemoglobin Concent 32 g/dL (31-37) Red Cell Distribution Width 17.5 % (11.5-14.5) Platelet Count 121 x10^3/uL (140-400) Sodium Level 138 mmol/L (136-145) Potassium Level 4.6 mmol/L (3.5-5.1) Chloride Level 100 mmol/L (98-107) Carbon Dioxide Level 29 mmol/L (21-32) Anion Gap 9 (6-14) Blood Urea Nitrogen 28 mg/dL (8-26) Creatinine 1.2 mg/dL (0.7-1.3) Estimated GFR (Cockcroft-Gault) 58.1 Glucose Level 115 mg/dL (70-99) Calcium Level 8.6 mg/dL (8.5-10.1) Test 10/24/21 07:21 10/24/21 11:04 10/24/21 17:02 10/24/21 20:48 Glucose (Fingerstick) 117 mg/dL (70-99) 127 mg/dL (70-99) 153 mg/dL (70-99) 135 mg/dL (70-99) Test 10/25/21 06:30 10/25/21 07:29 10/25/21 11:08 White Blood Count 2.6 x10^3/uL (4.0-11.0) Red Blood Count 2.37 x10^6/uL (4.30-5.70) Hemoglobin 7.5 g/dL (13.0-17.5) Hematocrit 22.9 % (39.0-53.0) Mean Corpuscular Volume 97 fL (79-100) Mean Corpuscular Hemoglobin 32 pg (25-35) Mean Corpuscular Hemoglobin Concent 33 g/dL (31-37) Red Cell Distribution Width 16.6 % (11.5-14.5) Platelet Count 114 x10^3/uL (140-400) Sodium Level 136 mmol/L (136-145) Potassium Level 4.2 mmol/L (3.5-5.1) Chloride Level 99 mmol/L (98-107) Carbon Dioxide Level 31 mmol/L (21-32) Anion Gap 6 (6-14) Blood Urea Nitrogen 32 mg/dL (8-26) Creatinine 1.4 mg/dL (0.7-1.3) Estimated GFR (Cockcroft-Gault) 48.6 Glucose Level 90 mg/dL (70-99) Calcium Level 8.5 mg/dL (8.5-10.1) Glucose (Fingerstick) 97 mg/dL (70-99) 137 mg/dL (70-99) Laboratory Tests Test 10/24/21 17:02 10/24/21 20:48 10/25/21 06:30 10/25/21 07:29 Glucose (Fingerstick) 153 mg/dL (70-99) 135 mg/dL (70-99) 97 mg/dL (70-99) White Blood Count 2.6 x10^3/uL (4.0-11.0) Red Blood Count 2.37 x10^6/uL (4.30-5.70) Hemoglobin 7.5 g/dL (13.0-17.5) Hematocrit 22.9 % (39.0-53.0) Mean Corpuscular Volume 97 fL (79-100) Mean Corpuscular Hemoglobin 32 pg (25-35) Mean Corpuscular Hemoglobin Concent 33 g/dL (31-37) Red Cell Distribution Width 16.6 % (11.5-14.5) Platelet Count 114 x10^3/uL (140-400) Sodium Level 136 mmol/L (136-145) Potassium Level 4.2 mmol/L (3.5-5.1) Chloride Level 99 mmol/L (98-107) Carbon Dioxide Level 31 mmol/L (21-32) Anion Gap 6 (6-14) Blood Urea Nitrogen 32 mg/dL (8-26) Creatinine 1.4 mg/dL (0.7-1.3) Estimated GFR (Cockcroft-Gault) 48.6 Glucose Level 90 mg/dL (70-99) Calcium Level 8.5 mg/dL (8.5-10.1) Test 10/25/21 11:08 Glucose (Fingerstick) 137 mg/dL (70-99) Imaging Report reviewed, images independently reviewed. Satisfactory hemiarthroplasty without apparent complications. PATIENT: ALEXEI POSADASUNT: [id number] : 1940 LOCATION: [address] [place] [address] AGE: 81 SEX: M EXAM STATUS: ADM IN ORD. PHYSICIAN: RICHARD ALVARADO MD REASON: postop PROCEDURE: HIP RIGHT 2V WITH PELVIS EXAM: Right hip and pelvis, 3 views. HISTORY: Postoperative evaluation. COMPARISON: None. FINDINGS: A frontal view of the pelvis and 2 views of the right hip are obtained. Note is made that the images are all and correctly labeled left. There is a right hip arthroplasty in expected position. There is surrounding soft tissue gas and there are skin dariela due to recent surgery. IMPRESSION: Right hip arthroplasty in expected position. Electronically signed by: Cassandra Palacio MD (10/23/2021 3:56 PM) [id number] Assessment Assessment POD# 2 after hip hemiarthroplasty for femoral neck fracture Plan Plan of Care Continue WBAT with walker. Discharge planning. Justicifation of Admission Dx: Justifications for Admission: Justification of Admission Dx: Yes Fracture: Fracture RICHARD ALVARADO MD Oct 25, 2021 14:24
--- NOTE | 2021-10-25 14:25 | PDOC ---
ERON HORTON PRODUCTION FINISHER 10/25/21 1425: CARDIO Progress Notes Date and Time Date of Service 10/25/21 Time of Evaluation 1410 Subjective Subjective: No Chest Pain, No shortness of breath, No Palpitations Vitals Vitals Vital Signs Date Time Temp Pulse Resp B/P (MAP) Pulse Ox O2 Delivery O2 Flow Rate FiO2 10/25/21 11:49 96 Nasal Cannula 2.0 10/25/21 11:00 97.6 66 20 107/47 (67) 97.6 Weight Weight [ ] Input and Output Intake and Output Intake and Output 10/25/21 07:00 Intake Total 250 ml Output Total 1000 ml Balance -750 ml Intake Oral 250 ml Output Urine Total 1000 ml Laboratory Labs Laboratory Tests Test 10/24/21 17:02 10/24/21 20:48 10/25/21 06:30 10/25/21 07:29 Glucose (Fingerstick) 153 mg/dL (70-99) 135 mg/dL (70-99) 97 mg/dL (70-99) White Blood Count 2.6 x10^3/uL (4.0-11.0) Red Blood Count 2.37 x10^6/uL (4.30-5.70) Hemoglobin 7.5 g/dL (13.0-17.5) Hematocrit 22.9 % (39.0-53.0) Mean Corpuscular Volume 97 fL (79-100) Mean Corpuscular Hemoglobin 32 pg (25-35) Mean Corpuscular Hemoglobin Concent 33 g/dL (31-37) Red Cell Distribution Width 16.6 % (11.5-14.5) Platelet Count 114 x10^3/uL (140-400) Sodium Level 136 mmol/L (136-145) Potassium Level 4.2 mmol/L (3.5-5.1) Chloride Level 99 mmol/L (98-107) Carbon Dioxide Level 31 mmol/L (21-32) Anion Gap 6 (6-14) Blood Urea Nitrogen 32 mg/dL (8-26) Creatinine 1.4 mg/dL (0.7-1.3) Estimated GFR (Cockcroft-Gault) 48.6 Glucose Level 90 mg/dL (70-99) Calcium Level 8.5 mg/dL (8.5-10.1) Test 10/25/21 11:08 Glucose (Fingerstick) 137 mg/dL (70-99) Microbiology Micro Microbiology 10/21/21 Urine Culture - Final, Complete Proteus Mirabilis/Penneri Physical Exam HEENT: Neck Supple W Full Motion Chest: Symmetric LUNGS: Other (diminished bases) Heart: irregularly irregular (AFIB- rate controlled ) Abdomen: Soft N/T Extremities: Other (1-2+ bilateral LE edema ) Neurology: alert, oriented, follow commands Assessment Assessment 1. Traumatic mechanical fall with acute right femoral neck fracture; s/p open surgical intervention. 2. Persistent AFIB; on Eliquis for stroke prophylaxis. Recent event monitor with 100% AFIB burden. 3. Acute on chronic diastolic heart failure; Recent echo with preserved LV systolic function. 4. Hypertension; low end 5. Morbid obesity 6. Diabetes, II 7. JESUS MANUEL on CKD; Cr at 1.4 8. Anemia; hgb drift to 7.5 9. Leukopenia Recommendations Continue Eliquis Will transfuse one unit Needs fluid offloading. Will give additional IV Lasix. monitor renal function Decrease hydralazine with low-end blood pressure Supportive care Justicifation of Admission Dx: Justifications for Admission: Justification of Admission Dx: Yes MARGUERITE RESTREPO MD 10/26/21 1023: CARDIO Progress Notes Plan Plan Late entry for 10/25/2021 Patient seen and examined. Agree with above nurse practitioner. Continue diuresis. ERON HORTON APRN Oct 25, 2021 14:25 MARGUERITE RESTREPO MD Oct 26, 2021 10:23
[2021-10-25] MEDS: LACTOBACILLUS RHAMNOSUS GG 1 CAPSULE. PO SCH ×2 (14:43→21:44)
[2021-10-25] MEDS: INSULIN GLARGINE SYRINGE. SQ SCH (21:00)
[2021-10-25] MEDS: FUROSEMIDE 40 MG/4 ML VIAL. IVP SCH (21:41)
[2021-10-25] MEDS: LATANOPROST 0.005% OPHTH SOLUTION 2.5ML BOTTLE. OU SCH (21:44)
[2021-10-25] MEDS: TAMSULOSIN 0.4 MG CAP.ER.24H. PO SCH (21:44)
[2021-10-26] MEDS: HYDROcodone/APAP 5/325MG 1 TAB TABLET PO PRN ×2 (00:48→12:18)
[2021-10-26 03:00] VITALS: BP 107/48
[2021-10-26 05:07] LABS: CALCIUM 8.3 mg/dL (8.5-10.1); CREATININE 1.4 mg/dL (0.7-1.3); GFR 48.6; POTASSIUM 3.8 mmol/L (3.5-5.1)
[2021-10-26 07:00] VITALS: BP 115/48
--- NOTE | 2021-10-26 07:28 | NUR ---
Unable to administer patient's zinc oxide, as patient refuses to allow turns
[2021-10-26] MEDS: BUDESONIDE 0.5 MG/2 ML NEBU. NEB SCH (07:58)
[2021-10-26] MEDS: IPRATRPIUM/ALBUTEROL 0.5/2.5MG 3 ML NEBU. NEB SCH ×2 (07:58→12:12)
[2021-10-26] MEDS: INSULIN LISPRO 300 UNITS/3 ML VIAL. SQ SCH ×2 (08:00→12:00)
[2021-10-26] MEDS: POLYETHYLENE GLYCOL 3350 17 GM PACKET. PO SCH ×2 (09:00→09:29)
[2021-10-26] MEDS: FENOFIBRATE,MICRONIZED 134 MG CAPSULE PO SCH (09:28)
[2021-10-26] MEDS: CIPROFLOXACIN HCL 250 MG TABLET. PO SCH (09:28)
[2021-10-26] MEDS: POTASSIUM CITRATE 10 MEQ TABLET.ER PO SCH (09:29)
[2021-10-26] MEDS: PANTOPRAZOLE 40 MG TABLET.DR. PO SCH (09:29)
[2021-10-26] MEDS: MULTIVITAMIN with MINERAL TABLET. PO SCH (09:30)
[2021-10-26] MEDS: FUROSEMIDE 40 MG/4 ML VIAL. IVP SCH (09:30)
[2021-10-26] MEDS: SENNOSIDES/DOCUSATE 8.6/50MG TABLET. PO SCH (09:30)
[2021-10-26] MEDS: ASPIRIN 325 MG TABLET PO SCH (09:30)
[2021-10-26] MEDS: CHOLECALCIFEROL (VITAMIN D3) 1,000 UNIT TABLET PO SCH (09:30)
[2021-10-26] MEDS: LACTOBACILLUS RHAMNOSUS GG 1 CAPSULE. PO SCH (09:31)
[2021-10-26] MEDS: APIXABAN 5 MG TABLET. PO SCH (09:31)
[2021-10-26] MEDS: PIOGLITAZONE 15 MG TABLET. PO SCH (09:32)
[2021-10-26] MEDS: ASCORBIC ACID 500 MG TABLET PO SCH (09:32)
[2021-10-26] MEDS: ALLOPURINOL 100 MG TABLET. PO SCH (09:32)
[2021-10-26] MEDS: ZINC OXIDE 20% TOPICAL OINTMENT 28GM TUBE. TP SCH (09:34)
[2021-10-26] MEDS: NYSTATIN TOPICAL POWDER 15GM BOTTLE. TP SCH (09:34)
[2021-10-26] MEDS: ZINC SULFATE 220 MG CAPSULE. PO SCH (09:36)
[2021-10-26] MEDS: IV 1/2 NORMAL SALINE 1,000 ML IV SCH (10:10)
--- NOTE | 2021-10-26 10:34 | PDOC ---
DATE OF SERVICE DATE: 10/26/21 TIME: 10:27 SUBJECTIVE ROS Denies N/V, No Urinary complaints, C/O some soreness in his Rt LE OBJECTIVE Vital Signs Vital Signs Date Time Temp Pulse Resp B/P (MAP) Pulse Ox O2 Delivery O2 Flow Rate FiO2 10/26/21 09:32 71 115/48 10/26/21 08:02 98 Nasal Cannula 2.0 10/26/21 07:00 98.7 20 98.7 I & 0 Intake and Output 10/26/21 07:00 Intake Total 515 ml Output Total 2100 ml Balance -1585 ml Intake Oral 140 ml Blood Product IV Normal Saline Flush 375 ml Output Urine Total 2100 ml # Voids 3 PHYSICAL EXAM Physical Exam GENERAL NAD HEENT: OM moist . On o2 by NC NECK: supple LUNGS: Decreased breath sound at bases. Non labored CARDIAC: Without S3 or rub. ABDOMEN: Obese. Bowel sounds are present. Nontender. EXTREMITIES: Without edema.Changes of CVI Bilat LE ++ NEURO- Grossly normal PSYCHIATRIC: Follows appropriately. No Maher, No CXVA or SP tenderness DERM No Rash, changes of CVI + DIAGNOSIS/ASSESSMENT Assessment & Plan JESUS MANUEL - Vasomotor , Resolved to baseline but trended up again, stable currently On IV lasix, monitor renal function . Non Oliguric . Hx of JESUS MANUEL in 2015 . Baseline Cr 1.2 seth . Supportive care, avoid nephrotoxins . 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 He recalls following with me at [place] office ; not recently due to resolution of JESUS MANUEL and stable renal function Anemia- Hgb trending down . Defer to primary Acute subcapital fracture of the right femoral neck after a fall . Underwent right hip open treatment of femoral fracture, proximal end, neck, prosthetic replacement on 10/23 Abnormal chest x-ray, suspect secondary to congestive heart failure and atelectasis. Chronic diastolic congestive heart failure- On IV lasix, cardiology managing Hypertension- BP low . on Furosemide with other antihypertensives . Cardiology managing BPH- On Tamsulosin Chronic obstructive pulmonary disease. Obstructive sleep apnea-hypopnea syndrome. Diabetes mellitus. History of COVID-19 pneumonia last year. Obesity. COMMENT/RELEVANT DATA Meds Current Medications Medications (Trade) Dose Ordered Sig/Nigel Start Time Stop Time Status Last Admin Dose Admin Acetaminophen (Tylenol) 650 mg PRN Q6HRS PRN 10/21/21 17:45 Acetaminophen/ Hydrocodone Bitart (Lortab 5/325) 2 tab PRN Q6HRS PRN 10/21/21 17:00 10/26/21 00:48 2 TAB Albuterol/ Ipratropium (Duoneb) 3 ml RTQID 10/22/21 08:00 10/26/21 07:58 3 ML Allopurinol (Zyloprim) 100 mg BID 10/21/21 21:00 10/26/21 09:32 100 MG Amiodarone HCl (Cordarone) 200 mg DAILY 10/22/21 09:00 10/24/21 12:27 DC 10/24/21 09:07 200 MG Amlodipine Besylate (Norvasc) 10 mg DAILY 10/22/21 09:00 10/26/21 09:31 10 MG Apixaban (Eliquis) 5 mg BID 10/24/21 09:00 10/26/21 09:31 5 MG Ascorbic Acid (Vitamin C) 500 mg DAILY 10/22/21 09:00 10/26/21 09:32 500 MG Aspirin (Daria Aspirin) 325 mg DAILY 10/22/21 09:00 10/26/21 09:30 325 MG Bisacodyl (Dulcolax Supp) 10 mg 1X PRN PRN 10/24/21 16:00 10/25/21 15:59 DC Budesonide (Pulmicort) 0.5 mg RTBID 10/22/21 08:00 10/26/21 07:58 0.5 MG Cefazolin Sodium (Ancef) 3 gm 1X PREOP PRN 10/23/21 06:00 10/23/21 18:00 Cancel Cefazolin Sodium 3 gm/Dextrose 100 ml @ 200 mls/hr Q6H 10/23/21 19:00 10/24/21 07:29 DC 10/24/21 06:30 200 MLS/HR Ciprofloxacin (Cipro) 500 mg BID 10/23/21 12:00 10/26/21 09:28 500 MG Dexamethasone Sodium Phosphate (Decadron) 4 mg STK-MED ONCE 10/23/21 14:31 10/23/21 14:31 DC Dextrose (Dextrose 50%-Water Syringe) 12.5 gm PRN Q15MIN PRN 10/23/21 15:30 Dextrose (Iv Dextrose 5%) 250 ml PRN Q15MIN PRN 10/23/21 15:30 Docusate Sodium (Colace) 100 mg PRN DAILY PRN 10/21/21 17:00 Epinephrine HCl (Adrenalin) 1 mg STK-MED ONCE 10/23/21 12:35 10/23/21 12:35 DC 10/23/21 13:46 1 MG Fenofibrate (Lofibra) 134 mg DAILY 10/22/21 09:00 10/26/21 09:28 134 MG Fentanyl Citrate (Fentanyl 2ml Vial) 50 mcg PRN Q1HR PRN 10/23/21 15:30 Fentanyl Citrate (Fentanyl 5ml Vial) 250 mcg STK-MED ONCE 10/23/21 12:35 10/23/21 12:35 DC Furosemide (Lasix) 40 mg DAILY 10/25/21 14:15 10/26/21 09:30 40 MG Glycopyrrolate (Robinul) 1 mg STK-MED ONCE 10/23/21 15:10 10/23/21 15:10 DC Guaifenesin (MUCINEX ER with DM) 1 tab PRN BID PRN 10/21/21 17:00 Hydralazine HCl (Apresoline) 25 mg BID 10/25/21 21:00 10/26/21 09:32 25 MG Info (Anti-Coagulation Monitoring By Pharmacy) 1 each PRN DAILY PRN 10/24/21 12:00 10/25/21 13:15 1 EACH Insulin Glargine (Lantus Syringe) 5 unit HS 10/21/21 21:00 Insulin Human Lispro (HumaLOG) 0-9 UNITS TIDWMEALS 10/22/21 08:00 Lactobacillus Rhamnosus (Culturelle) 1 cap BID 10/25/21 14:00 10/26/21 09:31 1 CAP Latanoprost (Xalatan) 1 drop QHS 10/21/21 21:00 10/25/21 21:44 1 DROP Lidocaine HCl (Lidocaine Pf 2% Vial) 5 ml STK-MED ONCE 10/23/21 14:31 10/23/21 14:31 DC Magnesium Hydroxide (Milk Of Magnesia) 2,400 mg 1X PRN PRN 10/24/21 06:00 2/23/22 05:59 DC Metoprolol Succinate (Toprol Xl) 12.5 mg DAILY 10/22/21 09:00 10/23/21 16:20 DC 10/23/21 08:26 12.5 MG Morphine Sulfate (Morphine Sulfate) 4 mg PRN Q2HR PRN 10/23/21 15:30 Morphine Sulfate 5 mg/Ropivacaine 60 ml/Epinephrine HCl 0.5 mg/Sodium Chloride 100 ml @ 100 mls/hr 1X ONCE 10/23/21 06:00 10/23/21 06:59 DC Multivitamins (Thera M Plus) 1 tab DAILY 10/24/21 09:00 10/26/21 09:30 1 TAB Neostigmine [place] (Neostigmine Methylsulfate) 5 mg STK-MED ONCE 10/23/21 15:10 10/23/21 15:10 DC Non-Formulary Medication (Guaifenesin/ Dextromethorphan (Robitussin Cough-Chest Dm Liq)) 10 ml PRN Q4HRS PRN 10/21/21 17:00 UNV Nystatin (Mycostatin) 1 kina PRN Q12HRS PRN 10/21/21 21:00 Nystatin (Nystop) 1 kina DAILY 10/22/21 09:00 10/26/21 09:34 1 KINA Olanzapine (ZyPREXA ZYDIS) 5 mg PRN BID PRN 10/21/21 17:45 Ondansetron HCl (Zofran) 4 mg PRN Q4HRS PRN 10/23/21 15:30 Oxycodone/ Acetaminophen (Percocet 5/325) 2 tab PRN Q4HRS PRN 10/23/21 15:45 Pantoprazole Sodium (Protonix) 40 mg DAILYAC 10/22/21 07:30 10/26/21 09:29 40 MG Pioglitazone HCl (Actos) 30 mg DAILY 10/22/21 09:00 10/26/21 09:32 30 MG Polyethylene Glycol (miraLAX PACKET) 17 gm PRN DAILY PRN 10/23/21 15:30 Potassium Chloride (Klor-Con) 20 meq 1X ONCE 10/24/21 14:00 10/24/21 14:01 DC 10/24/21 17:38 20 MEQ Potassium Citrate (Urocit-K) 10 meq BID 10/21/21 21:00 10/26/21 09:29 10 MEQ Propofol (Diprivan) 200 mg STK-MED ONCE 10/23/21 14:31 10/23/21 14:31 DC Rocuronium [place] (Zemuron) 50 mg STK-MED ONCE 10/23/21 12:35 10/23/21 12:36 DC Senna/Docusate Sodium (Senna Plus) 1 tab DAILY 10/24/21 09:00 10/26/21 09:30 1 TAB Sevoflurane (Ultane) 90 ml STK-MED ONCE 10/23/21 14:31 10/23/21 14:31 DC Sodium Chloride 1,000 ml @ 75 mls/hr [id number] 10/23/21 15:30 Tamsulosin HCl (Flomax) 0.8 mg QHS 10/21/21 21:00 10/25/21 21:44 0.8 MG Throat Lozenges (Cepacol Sore Throat Lozenge) 1 adonay PRN Q4HRS PRN 10/21/21 20:00 Tobramycin Sulfate (Tobramycin Powder) 1.2 gm STK-MED ONCE 10/23/21 12:13 10/23/21 12:13 DC 10/23/21 13:46 1.2 GM Tranexamic Acid 50 ml @ 50 mls/hr 1X PERIOP ONCE 10/23/21 09:00 10/23/21 09:59 DC 10/23/21 13:30 50 MLS/HR Vancomycin HCl (Vancomycin) 1 gm STK-MED ONCE 10/23/21 12:35 10/23/21 12:35 DC 10/23/21 14:52 1 GM Vitamin D (Vitamin D3) 2,000 unit DAILY 10/22/21 09:00 10/26/21 09:30 2,000 UNIT Zinc Oxide (Zinc Oxide 20% Topical) 1 kina BID 10/21/21 21:00 10/26/21 09:34 1 KINA Zinc Sulfate (Orazinc) 220 mg DAILY 10/22/21 09:00 10/26/21 09:36 220 MG Lab Laboratory Tests Test 10/25/21 11:08 10/25/21 16:38 10/25/21 17:43 10/25/21 20:39 Glucose (Fingerstick) 137 mg/dL (70-99) 118 mg/dL (70-99) 103 mg/dL (70-99) Coronavirus (COVID-19)(PCR) Not detected (NOT DETECTD) Test 10/26/21 03:20 10/26/21 07:22 Sodium Level 136 mmol/L (136-145) Potassium Level 3.8 mmol/L (3.5-5.1) Chloride Level 98 mmol/L (98-107) Carbon Dioxide Level 30 mmol/L (21-32) Anion Gap 8 (6-14) Blood Urea Nitrogen 37 mg/dL (8-26) Creatinine 1.4 mg/dL (0.7-1.3) Estimated GFR (Cockcroft-Gault) 48.6 Glucose Level 92 mg/dL (70-99) Calcium Level 8.3 mg/dL (8.5-10.1) Glucose (Fingerstick) 86 mg/dL (70-99) Results All relevant outside records, renal labs, imaging studies, telemetry/EKG's were reviewed. Justicifation of Admission Dx: Justifications for Admission: Justification of Admission Dx: Yes Fracture: Fracture ROSITA FERMIN MD Oct 26, 2021 10:34
[2021-10-26 10:49] LABS: HEMATOCRIT 23.9 % (39.0-53.0); HEMOGLOBIN 7.9 g/dL (13.0-17.5); RED BLOOD COUNT 2.51 x10^6/uL (4.30-5.70); RED CELL DISTRIBUTION WIDTH 17.3 % (11.5-14.5); WHITE BLOOD COUNT 2.6 x10^3/uL (4.0-11.0)
[2021-10-26 11:00] VITALS: BP 126/55
--- NOTE | 2021-10-26 11:04 | PDOC ---
PULMONARY PROGRESS NOTES DATE: 10/26/21 TIME: 11:04 Subjective Patient is resting comfortably on 2 L nasal cannula, denies any increased shortness of breath Reports nonproductive cough Patient reports that he wore BiPAP last night, reports that his breathing is significantly better today Afebrile, no overnight concerns Vitals Vital Signs Date Time Temp Pulse Resp B/P (MAP) Pulse Ox O2 Delivery O2 Flow Rate FiO2 10/26/21 09:32 71 115/48 10/26/21 08:02 98 Nasal Cannula 2.0 10/26/21 07:00 98.7 20 98.7 ROS: No Nausea, No Chest Pain, No Abdominal Pain General: Alert Lungs: Clear Cardiovascular: S1, S2 Abdomen: Soft Extremities: No Edema Skin: Warm, Dry Labs Laboratory Tests Test 10/24/21 17:02 10/24/21 20:48 10/25/21 06:30 10/25/21 07:29 Glucose (Fingerstick) 153 mg/dL (70-99) 135 mg/dL (70-99) 97 mg/dL (70-99) White Blood Count 2.6 x10^3/uL (4.0-11.0) Red Blood Count 2.37 x10^6/uL (4.30-5.70) Hemoglobin 7.5 g/dL (13.0-17.5) Hematocrit 22.9 % (39.0-53.0) Mean Corpuscular Volume 97 fL (79-100) Mean Corpuscular Hemoglobin 32 pg (25-35) Mean Corpuscular Hemoglobin Concent 33 g/dL (31-37) Red Cell Distribution Width 16.6 % (11.5-14.5) Platelet Count 114 x10^3/uL (140-400) Sodium Level 136 mmol/L (136-145) Potassium Level 4.2 mmol/L (3.5-5.1) Chloride Level 99 mmol/L (98-107) Carbon Dioxide Level 31 mmol/L (21-32) Anion Gap 6 (6-14) Blood Urea Nitrogen 32 mg/dL (8-26) Creatinine 1.4 mg/dL (0.7-1.3) Estimated GFR (Cockcroft-Gault) 48.6 Glucose Level 90 mg/dL (70-99) Calcium Level 8.5 mg/dL (8.5-10.1) Test 10/25/21 11:08 10/25/21 16:38 10/25/21 17:43 10/25/21 20:39 Glucose (Fingerstick) 137 mg/dL (70-99) 118 mg/dL (70-99) 103 mg/dL (70-99) Coronavirus (COVID-19)(PCR) Not detected (NOT DETECTD) Test 10/26/21 03:20 10/26/21 07:22 White Blood Count 2.6 x10^3/uL (4.0-11.0) Red Blood Count 2.51 x10^6/uL (4.30-5.70) Hemoglobin 7.9 g/dL (13.0-17.5) Hematocrit 23.9 % (39.0-53.0) Mean Corpuscular Volume 95 fL (79-100) Mean Corpuscular Hemoglobin 31 pg (25-35) Mean Corpuscular Hemoglobin Concent 33 g/dL (31-37) Red Cell Distribution Width 17.3 % (11.5-14.5) Platelet Count 117 x10^3/uL (140-400) Sodium Level 136 mmol/L (136-145) Potassium Level 3.8 mmol/L (3.5-5.1) Chloride Level 98 mmol/L (98-107) Carbon Dioxide Level 30 mmol/L (21-32) Anion Gap 8 (6-14) Blood Urea Nitrogen 37 mg/dL (8-26) Creatinine 1.4 mg/dL (0.7-1.3) Estimated GFR (Cockcroft-Gault) 48.6 Glucose Level 92 mg/dL (70-99) Calcium Level 8.3 mg/dL (8.5-10.1) Glucose (Fingerstick) 86 mg/dL (70-99) Laboratory Tests Test 10/25/21 11:08 10/25/21 16:38 10/25/21 17:43 10/25/21 20:39 Glucose (Fingerstick) 137 mg/dL (70-99) 118 mg/dL (70-99) 103 mg/dL (70-99) Coronavirus (COVID-19)(PCR) Not detected (NOT DETECTD) Test 10/26/21 03:20 10/26/21 07:22 White Blood Count 2.6 x10^3/uL (4.0-11.0) Red Blood Count 2.51 x10^6/uL (4.30-5.70) Hemoglobin 7.9 g/dL (13.0-17.5) Hematocrit 23.9 % (39.0-53.0) Mean Corpuscular Volume 95 fL (79-100) Mean Corpuscular Hemoglobin 31 pg (25-35) Mean Corpuscular Hemoglobin Concent 33 g/dL (31-37) Red Cell Distribution Width 17.3 % (11.5-14.5) Platelet Count 117 x10^3/uL (140-400) Sodium Level 136 mmol/L (136-145) Potassium Level 3.8 mmol/L (3.5-5.1) Chloride Level 98 mmol/L (98-107) Carbon Dioxide Level 30 mmol/L (21-32) Anion Gap 8 (6-14) Blood Urea Nitrogen 37 mg/dL (8-26) Creatinine 1.4 mg/dL (0.7-1.3) Estimated GFR (Cockcroft-Gault) 48.6 Glucose Level 92 mg/dL (70-99) Calcium Level 8.3 mg/dL (8.5-10.1) Glucose (Fingerstick) 86 mg/dL (70-99) Medications Active Scripts Medications Dose Route/Sig Max Daily Dose Days Date Category Dose Instructions Omeprazole 20 Mg Capsule. 1 Cap PO DAILY 10/21/21 Reported Nystatin-Triamcinolone Cream (Nystatin/Triamcin) 15 Gm Cream..g. 1 Abigail TP BID 10/21/21 Reported Nystatin 1 Each Powder.ea. 1 Each MC BID 10/21/21 Reported Hydrocodone-Apap 5-325 (Hydrocodone Bit/Acetaminophen) 1 Tab Tablet 1 Tab PO PRN Q6HRS PRN 10/21/21 Reported Mucinex Dm Er 600-30 Mg Tablet (Guaifenesin/Dextromethorphan) 1 Each Tab.er.12h 1 Tab PO PRN BID PRN 10 10/21/21 Reported Lantus (Insulin Glargine,Hum.rec.anlog) 100 Unit/1 Ml Vial 5 Unit SQ HS 10/21/21 Reported Eliquis (Apixaban) 5 Mg Tablet 5 Mg PO BID 10/21/21 Reported Aspirin 325 Mg Tablet 1 Tab PO DAILY 10/21/21 Reported Metoprolol Succinate ( Xl ) (Metoprolol Succinate) 25 Mg Tab.er.24h 12.5 Mg PO DAILY 30 08/20/21 Rx Amiodarone Hcl 200 Mg Tablet 200 Mg PO DAILY 30 08/20/21 Rx Zinc Sulfate 50 Mg Capsule 220 Mg PO DAILY 08/17/21 Reported Ascorbic Acid 500 Mg Tablet 500 Mg PO DAILY 08/17/21 Reported Robitussin Cough-Chest Dm Liq (Guaifenesin/Dextromethorphan) 237 Ml Liquid 10 Ml PO PRN Q4HRS PRN 08/17/21 Reported Miralax (Polyethylene Glycol 3350) 17 Gm Powd.pack 1 Packet PO DAILY 2 08/17/21 Reported dissolve in water Lasix (Furosemide) 40 Mg Tablet 1 Tab PO DAILY 30 08/17/21 Reported Colace (Docusate Sodium) 100 Mg Capsule 100 Mg PO PRN DAILY PRN 08/17/21 Reported Cepacol Sore Throat Lozenge (Benzocaine/Menthol) 1 Each Lozenge 1 Tab PO Q4HRS 3 08/17/21 Reported Calmoseptine Ointment (Menthol/Zinc Oxide) 3.5 Gm Oint.pack 3.5 Gm TP BID 08/17/21 Reported Hydrocodone-Apap 5-325 (Hydrocodone Bit/Acetaminophen) 1 Tab Tablet 2 Tab PO PRN Q6HRS PRN 07/14/21 Rx Potassium Citrate Er (Potassium Citrate) 15 Meq Tablet.er 1 Tab PO BID 30 06/25/21 Reported Flomax (Tamsulosin Hcl) 0.4 Mg Cap.er.24h 2 Cap PO QHS 06/25/21 Reported Allopurinol 100 Mg Tablet 1 Tab PO BID 06/25/21 Reported [Hydralazine Hcl] 50 MG Tablet 50 Mg PO TID 05/06/15 Rx Norvasc (Amlodipine Besylate) 10 Mg Tablet 10 Mg PO DAILY 05/06/15 Rx Lumigan (Bimatoprost) 2.5 Ml Drops 1 Drop EACHEYE QHS 05/03/15 Reported Vitamin D3 (Cholecalciferol (Vitamin D3)) 1,000 Unit Tablet 2 Tab PO DAILY 05/03/15 Reported Tricor (Fenofibrate Nanocrystallized) 145 Mg Tablet 1 Tab PO QHS 05/03/15 Reported Actos (Pioglitazone Hcl) 30 Mg Tablet 1 Tab PO DAILY 05/03/15 Reported Impression . IMPRESSION: 1. Abnormal chest x-ray, suspect secondary to congestive heart failure and atelectasis. 2. Chronic diastolic congestive heart failure. 3. Chronic obstructive pulmonary disease. 4. Obstructive sleep apnea-hypopnea syndrome. 5. Status post fall with an acute subcapital fracture of the right femoral neck.--- Now status post right hip arthroplasty 6. Diabetes mellitus. 7. Hypertension. 8. History of COVID-19 pneumonia last year. 9. Obesity. 10. Acute kidney injury/chronic kidney disease. Plan . Updated 10/25/2021 Continue supplemental oxygen oxygen saturation stayed 92%, currently cannula, wean as tolerated Bronchodilators as needed BiPAP at night Follow cardiology recommendations: Continue Eliquis, beta-jeronimo in the setting of bradycardia, echo shows preserved EF Diabetes per primary care Monitor renal function Follow orthopedic recommendations: Status post right hip arthroplasty 10/23/21 Monitor hemoglobin: Anemia/thrombocytopenia Physical therapy/Occupational Therapy Social work for DC planning Discussed with RN Updated 10/24 Continue oxygen per nasal cannula BiPAP nightly Follow cardiology input PT to decide if patient is safe for discharge home with home health update 10/23 Titrate FiO2 to keep O2 saturation 90%. incentive spirometer to use multiple times an hour. continue BiPAP at bedtime and during sleep and p.r.n. during day Cardiology consultation. He does have paroxysmal atrial fibrillation and chronic diastolic congestive heart failure. cont bronchodilator and inhaled corticosteroid. Monitor respiratory status closely postop. RAINER ASHLEY MD Oct 26, 2021 11:04
[2021-10-26] MEDS ORDERED: HYDR-2869 PO (11:15)
[2021-10-26] MEDS ORDERED: CIPR250T30 PO (11:15)
--- NOTE | 2021-10-26 11:46 | PDOC3 ---
[facility]-Discharge Summary Date of Admission: Date of Admission: Oct 21, 2021 Date of Discharge: Date of Discharge: Oct 26, 2021 Hospital Course: Hospital Course: Abnormal chest x-ray, suspect secondary to congestive heart failure and atelectasis. Chronic diastolic congestive heart failure. Chronic obstructive pulmonary disease. Obstructive sleep apnea-hypopnea syndrome. Status post fall Acute subcapital fracture of the right femoral neck. Diabetes mellitus. Hypertension. History of COVID-19 pneumonia last year. Obesity. Acute kidney injury/chronic kidney disease. History of Present Illness History of Present Illness Mr Moore is an 81 yo male with PMHx COPD, paroxsymal afib, HTN, chronic diastolic CHF, EZIO previously intolerant of CPAP who comes from his assisted living facility, [facility], where he lives with his who has Alzheimer dementia, after a fall in the bathroom. X-rays show an acute displaced subcapital fracture of the right femoral neck. 10/22: He has been in the hospital since August. His pain is reasonably controlled right now. CKD stable per nephrology. Agree with pulmonology recommendations for preoperative cardiac evaluation given his paroxysmal A. fib. Is currently in sinus on exami 10/23 Patient evaluate examined at bedside. Eager for surgery today. We will follow up after surgery. Add on Cipro today for Proteus UTI. Otherwise continue current. Plan discussed bedside RN. 10/24 Patient evaluated examined at bedside. Postop day 1. Says his incisional pain is pretty well controlled. Did have some pain when working with physical therapy. Resuming Eliquis today. PT OT. Discussed with bedside RN. 10/25 Evaluate examined at bedside. Postop day 2. Resting in bed pain controlled. Continue working with therapy. Will need placement. Transfer to the joint floor today. Plan discussed bedside RN 10/26 Evaluated examined at bedside. Can discharge to [facility] today. Greater than 30 minutes spent on discharge. 19 minutes advance care planning. Disposition: Disposition/Orders: D/C to Another Facility Activity: Activity: Resume previous activity Diet: Diet: Regular Medications: Home Meds Active Scripts Hydralazine Hcl (HYDRALAZINE HCL) 50 Mg Tablet, 25 MG PO BID for htn for 30 Days, #30 TAB Prov:LENIN VIRGEN MD 10/26/21 Ciprofloxacin Hcl (CIPRO) 250 Mg Tablet, 500 MG PO BID for pneumonia for 5 Days, #20 TAB Prov:LENIN VIRGEN MD 10/26/21 Hydrocodone Bit/Acetaminophen (HYDROCODONE-APAP 5-325 ) 1 Tab Tablet, 2 TAB PO PRN Q6HRS PRN for PAIN, #90 TAB 0 Refills Prov:KACIE PATIÑO MD 07/14/21 Amlodipine Besylate (NORVASC) 10 Mg Tablet, 10 MG PO DAILY, #30 Prov:LATIA MENDEZ MD 05/06/15 Reported Medications Omeprazole (OMEPRAZOLE) 20 Mg Capsule.dr, 1 CAP PO DAILY for gerd, #30 CAP 5 Refills 10/21/21 Nystatin/Triamcin (NYSTATIN-TRIAMCINOLONE CREAM) 15 Gm Cream..g., 1 KEELEY TP BID for skin irritation, #15 GM 1 Refill 10/21/21 Nystatin (NYSTATIN) 1 Each Powder.ea., 1 EACH MC BID for skin irritation, EACH 10/21/21 Hydrocodone Bit/Acetaminophen (HYDROCODONE-APAP 5-325 ) 1 Tab Tablet, 1 TAB PO PRN Q6HRS PRN for PAIN, TAB 0 Refills 10/21/21 Guaifenesin/Dextromethorphan (MUCINEX DM ER 600-30 MG TABLET) 1 Each Tab.er.12h, 1 TAB PO PRN BID PRN for cough and congestion for 10 Days, #20 TAB 0 Refills 10/21/21 Insulin Glargine,Hum.rec.anlog (LANTUS) 100 Unit/1 Ml Vial, 5 UNIT SQ HS for diabetes, EACH 10/21/21 Apixaban (ELIQUIS) 5 Mg Tablet, 5 MG PO BID for blood thinner, TAB 10/21/21 Aspirin (ASPIRIN) 325 Mg Tablet, 1 TAB PO DAILY for blood thinner, #30 TAB 5 Refills 10/21/21 Zinc Sulfate (Zinc Sulfate) 50 Mg Capsule, 220 MG PO DAILY for supplement, CAP 08/17/21 Ascorbic Acid (ASCORBIC ACID) 500 Mg Tablet, 500 MG PO DAILY for supplement, TAB 08/17/21 Guaifenesin/Dextromethorphan (Robitussin Cough-Chest Dm Liq) 237 Ml Liquid, 10 ML PO PRN Q4HRS PRN for COUGH, LIQUID 08/17/21 Polyethylene Glycol 3350 (MIRALAX) 17 Gm Powd.pack, 1 PACKET PO DAILY for constipation for 2 Days, #2 PACKET 0 Refills dissolve in water 08/17/21 Furosemide (LASIX) 40 Mg Tablet, 1 TAB PO DAILY for CHF for 30 Days, #30 TAB 0 Refills 08/17/21 Docusate Sodium (COLACE) 100 Mg Capsule, 100 MG PO PRN DAILY PRN for CONSTIPATION, CAP 08/17/21 Benzocaine/Menthol (CEPACOL SORE THROAT LOZENGE) 1 Each Lozenge, 1 TAB PO Q4HRS for sore throat for 3 Days, #18 TAB 0 Refills 08/17/21 Menthol/Zinc Oxide (CALMOSEPTINE OINTMENT) 3.5 Gm Oint.pack, 3.5 GM TP BID for skin irritation, MISC 08/17/21 Potassium Citrate (POTASSIUM CITRATE ER) 15 Meq Tablet.er, 1 TAB PO BID for supplement for 30 Days, #60 TAB 0 Refills 06/25/21 Tamsulosin Hcl (FLOMAX) 0.4 Mg Cap.er.24h, 2 CAP PO QHS for unk, #30 CAP 11 Refills 06/25/21 Allopurinol (ALLOPURINOL) 100 Mg Tablet, 1 TAB PO BID for unk, #30 TAB 5 Refills 06/25/21 Bimatoprost (LUMIGAN) 2.5 Ml Drops, 1 DROP EACHEYE QHS, #7.5 ML 3 Refills 05/03/15 Cholecalciferol (Vitamin D3) (VITAMIN D3) 1,000 Unit Tablet, 2 TAB PO DAILY for supplement, #30 TAB 5 Refills 05/03/15 Fenofibrate Nanocrystallized (TRICOR) 145 Mg Tablet, 1 TAB PO QHS for unk, #30 TAB 5 Refills 05/03/15 Pioglitazone Hcl (ACTOS) 30 Mg Tablet, 1 TAB PO DAILY, #30 TAB 5 Refills 05/03/15 Discontinued Scripts Metoprolol Succinate (METOPROLOL SUCCINATE ( XL )) 25 Mg Tab.er.24h, 12.5 MG PO DAILY for atrial fibrillation for 30 Days, #15 TAB.SR Prov:DEIDRE KAYE MD 08/20/21 Amiodarone Hcl (AMIODARONE HCL) 200 Mg Tablet, 200 MG PO DAILY for atrial fibrillation for 30 Days, #30 TAB Prov:DEIDRE KAYE MD 08/20/21 [Hydralazine Hcl] 50 MG TABLET No Conflict Check, 50 MG PO TID Prov:LATIA MENDEZ MD 05/06/15 Scheduled Allopurinol (Allopurinol), 1 TAB PO BID, (Reported) Amlodipine Besylate (Norvasc), 10 MG PO DAILY Apixaban (Eliquis), 5 MG PO BID, (Reported) Ascorbic Acid (Ascorbic Acid), 500 MG PO DAILY, (Reported) Aspirin (Aspirin), 1 TAB PO DAILY, (Reported) Benzocaine/Menthol (Cepacol Sore Throat Lozenge), 1 TAB PO Q4HRS, (Reported) Bimatoprost (Lumigan), 1 DROP EACHEYE QHS, (Reported) Cholecalciferol (Vitamin D3) (Vitamin D3), 2 TAB PO DAILY, (Reported) Ciprofloxacin Hcl (Cipro), 500 MG PO BID Fenofibrate Nanocrystallized (Tricor), 1 TAB PO QHS, (Reported) Furosemide (Lasix), 1 TAB PO DAILY, (Reported) Hydralazine Hcl (Hydralazine Hcl), 25 MG PO BID Insulin Glargine,Hum.rec.anlog (Lantus), 5 UNIT SQ HS, (Reported) Menthol/Zinc Oxide (Calmoseptine Ointment), 3.5 GM TP BID, (Reported) Nystatin (Nystatin), 1 EACH MC BID, (Reported) Nystatin/Triamcin (Nystatin-Triamcinolone Cream), 1 KEELEY TP BID, (Reported) Omeprazole (Omeprazole), 1 CAP PO DAILY, (Reported) Pioglitazone Hcl (Actos), 1 TAB PO DAILY, (Reported) Polyethylene Glycol 3350 (Miralax), 1 PACKET PO DAILY, (Reported) Potassium Citrate (Potassium Citrate Er), 1 TAB PO BID, (Reported) Tamsulosin Hcl (Flomax), 2 CAP PO QHS, (Reported) Zinc Sulfate (Zinc Sulfate), 220 MG PO DAILY, (Reported) Scheduled PRN Docusate Sodium (Colace), 100 MG PO PRN DAILY PRN for CONSTIPATION, (Reported) Guaifenesin/Dextromethorphan (Robitussin Cough-Chest Dm Liq), 10 ML PO PRN Q4HRS PRN for COUGH, (Reported) Guaifenesin/Dextromethorphan (Mucinex Dm Er 600-30 Mg Tablet), 1 TAB PO PRN BID PRN for cough and congestion, (Reported) Hydrocodone Bit/Acetaminophen (Hydrocodone-Apap 5-325 ), 2 TAB PO PRN Q6HRS PRN for PAIN Hydrocodone Bit/Acetaminophen (Hydrocodone-Apap 5-325 ), 1 TAB PO PRN Q6HRS PRN for PAIN, (Reported) Discontinued Medications Amiodarone Hcl (Amiodarone Hcl), 200 MG PO DAILY Metoprolol Succinate (Metoprolol Succinate ( Xl )), 12.5 MG PO DAILY [Hydralazine Hcl], 50 MG PO TID Justicifation of Admission Dx: Justifications for Admission: Justification of Admission Dx: Yes Fracture: Fracture LENIN VIRGEN MD Oct 26, 2021 11:46
[2021-10-26] MEDS ORDERED: OXYC1TAB15 PO (13:11)
--- NOTE | 2021-10-26 13:37 | PDOC ---
ERON HORTON VEHICLE MAINTENANCE TECHNICIAN 10/26/21 1337: CARDIO Progress Notes Date and Time Date of Service 10/26/21 Time of Evaluation 1310 Subjective Subjective: No Chest Pain, No shortness of breath, No Palpitations Vitals Vitals Vital Signs Date Time Temp Pulse Resp B/P (MAP) Pulse Ox O2 Delivery O2 Flow Rate FiO2 10/26/21 12:18 19 Nasal Cannula 2.0 10/26/21 11:00 98.3 78 126/55 (78) 93 98.3 Weight Weight [ ] Input and Output Intake and Output Intake and Output 10/26/21 07:00 Intake Total 515 ml Output Total 2100 ml Balance -1585 ml Intake Oral 140 ml Blood Product IV Normal Saline Flush 375 ml Output Urine Total 2100 ml # Voids 3 Laboratory Labs Laboratory Tests Test 10/25/21 16:38 10/25/21 17:43 10/25/21 20:39 10/26/21 03:20 Glucose (Fingerstick) 118 mg/dL (70-99) 103 mg/dL (70-99) Coronavirus (COVID-19)(PCR) Not detected (NOT DETECTD) White Blood Count 2.6 x10^3/uL (4.0-11.0) Red Blood Count 2.51 x10^6/uL (4.30-5.70) Hemoglobin 7.9 g/dL (13.0-17.5) Hematocrit 23.9 % (39.0-53.0) Mean Corpuscular Volume 95 fL (79-100) Mean Corpuscular Hemoglobin 31 pg (25-35) Mean Corpuscular Hemoglobin Concent 33 g/dL (31-37) Red Cell Distribution Width 17.3 % (11.5-14.5) Platelet Count 117 x10^3/uL (140-400) Sodium Level 136 mmol/L (136-145) Potassium Level 3.8 mmol/L (3.5-5.1) Chloride Level 98 mmol/L (98-107) Carbon Dioxide Level 30 mmol/L (21-32) Anion Gap 8 (6-14) Blood Urea Nitrogen 37 mg/dL (8-26) Creatinine 1.4 mg/dL (0.7-1.3) Estimated GFR (Cockcroft-Gault) 48.6 Glucose Level 92 mg/dL (70-99) Calcium Level 8.3 mg/dL (8.5-10.1) Test 10/26/21 07:22 10/26/21 11:17 Glucose (Fingerstick) 86 mg/dL (70-99) 96 mg/dL (70-99) Microbiology Micro Microbiology 10/21/21 Urine Culture - Final, Complete Proteus Mirabilis/Penneri Physical Exam HEENT: Neck Supple W Full Motion Chest: Symmetric LUNGS: Other (diminished bases) Heart: irregularly irregular (AFIB- rate controlled ) Abdomen: Soft N/T Extremities: Other (1-2+ bilateral LE edema ) Neurology: alert, oriented, follow commands Assessment Assessment 1. Traumatic mechanical fall with acute right femoral neck fracture; s/p open surgical intervention. 2. Persistent AFIB; on Eliquis for stroke prophylaxis. Recent event monitor with 100% AFIB burden. 3. Acute on chronic diastolic heart failure; Recent echo with preserved LV systolic function. s/p IV diuresis 4. Hypertension; low end 5. Morbid obesity 6. Diabetes, II 7. JESUS MANUEL on CKD; Cr stable at 1.4 8. Anemia; hgb drift to 7.5. s/p transfusion. hgb at 7.9 9. Leukopenia Recommendations Continue Eliquis Will need outpatient monitor of anemia Lasix therapy Supportive care Follow up is scheduled with Dr. Barrett. Justicifation of Admission Dx: Justifications for Admission: Justification of Admission Dx: Yes Fracture: Fracture MARGUERITE BARRETT MD 10/26/21 1610: CARDIO Progress Notes Plan Plan Patient seen and examined. Agree with above nurse practitioner. Supportive care. Continue diuresis. Ok to DC from CV standpoint. ERON HORTON APRN Oct 26, 2021 13:37 MARGUERITE BARRETT MD Oct 26, 2021 16:10
--- NOTE | 2021-10-26 13:53 | NUR ---
Discharge Note: ALEXEI POSADAS Discharge instructions and discharge home medications reviewed with Other facility and a copy given. All questions have been answered and understanding verbalized. The following instructions and handouts were given: worsening symptoms, medications, follow up information, and incisional care. Discontinued lines and drains: IV discontinued from RFA, telemetry removed, skin tears not pictured d/t EMS arriving. Patient discharged to [facility] via EMS.
--- NOTE | 2021-10-27 17:07 | PATHOLOGY ---
[facility] Accession Number: [id number] . 01 Material submitted: . hip - RIGHT HIP BONE AND TISSUE. Modifiers: right . 01 Clinical history: . RIGHT FEMORAL NECK FRACTURE RIGHT HIP HEMIARTHROPLASTY . 02 Diagnosis: Femoral head and separate segments of femoral neck, right hip hemiarthroplasty: - Focal fragmentation of bony trabeculae and recent intertrabecular hemorrhage consistent with fracture. LBQ 10/27/2021 1542 Local . 02 Comment: There is no evidence of malignancy. (JPM/db; 10/27/2021) . 02 Electronically signed: . Bartolome Greenberg MD, Pathologist NPI- [id number] . 01 Gross description: . The specimen is received in formalin, labeled "Shadi Moore, right hip bone and tissue". Received is a femoral head measuring 5.3 x 5.3 x 4.9 cm and separately submitted fractured femoral neck measuring 7.7 x 6.9 x 2.1 cm in aggregate dimensions. The articular surface of the femoral head is pale sinclair and smooth to slightly irregular in contour. Sectioning reveals yellow-sinclair cut surfaces with the distal most aspect displaying a hemorrhagic appearance, consistent with fracture site. A sales utility representative section from the femoral head is submitted in cassette A1, following decalcification. A sales utility representative section from the fractured femoral neck is submitted in cassette A2, following decalcification. ([facility]; 10/25/2021) QAC/QAC 10/25/2021 0829 Local . 02 Pathologist provided ICD-10: S72.001A . 02 CPT . 738601, [id number] Specimen Comment: A courtesy copy of this report has been sent to [phone] Specimen Comment: [id number], Specimen Comment: Report sent to , DR ELKINS / DR MALONE Specimen Comment: A duplicate report has been generated due to demographic updates. Performed at: 01 [facility] [place] [address] [id number] MD Leonides Gipson MD Phone: [phone] Performed at: 02 [facility] [address] [place], [place] [id number] MD Bartolome Greenberg MD Phone: [phone]
[2021-10-30] MEDS ORDERED: OXYC1TAB15 PO (14:10)
== END 2021-10-26 13:30 | DRG 521 ==
LOC: ER 08:11 → 5 SOUTH 09:47
PROVIDERS: ADMIT Internal Medicine; ATTEND Internal Medicine
PROC: 5A09357 Assistance with Respiratory Ventilation, Less than 24 Consecutive Hours, Continuous Positive Airway Pressure (ICD-10-PCS; 2021-10-22)
PROC: 5A09357 Assistance with Respiratory Ventilation, Less than 24 Consecutive Hours, Continuous Positive Airway Pressure (ICD-10-PCS; 2021-10-23)
PROC: 0SRR0J9 Replacement of Right Hip Joint, Femoral Surface with Synthetic Substitute, Cemented, Open Approach (ICD-10-PCS; principal; 2021-10-23 12:30)
PROC: 5A09357 Assistance with Respiratory Ventilation, Less than 24 Consecutive Hours, Continuous Positive Airway Pressure (ICD-10-PCS; 2021-10-24)
PROC: 30233N1 Transfusion of Nonautologous Red Blood Cells into Peripheral Vein, Percutaneous Approach (ICD-10-PCS; 2021-10-25)
PROC: 5A09357 Assistance with Respiratory Ventilation, Less than 24 Consecutive Hours, Continuous Positive Airway Pressure (ICD-10-PCS; 2021-10-25)
PROC: 5A09357 Assistance with Respiratory Ventilation, Less than 24 Consecutive Hours, Continuous Positive Airway Pressure (ICD-10-PCS; 2021-10-26)
DX: S72.011A Unspecified intracapsular fracture of right femur, initial encounter for closed fracture (principal); N17.0 Acute kidney failure with tubular necrosis; I50.33 Acute on chronic diastolic (congestive) heart failure; J96.21 Acute and chronic respiratory failure with hypoxia; I13.0 Hypertensive heart and chronic kidney disease with heart failure and stage 1 through stage 4 chronic kidney disease, or unspecified chronic kidney disease; I48.19 Other persistent atrial fibrillation; Z68.42 Body mass index [BMI] 45.0-49.9, adult; N11.9 Chronic tubulo-interstitial nephritis, unspecified; Z20.822 Contact with and (suspected) exposure to COVID-19; B96.4 Proteus (mirabilis) (morganii) as the cause of diseases classified elsewhere; D64.9 Anemia, unspecified; D69.6 Thrombocytopenia, unspecified; D72.819 Decreased white blood cell count, unspecified; E11.22 Type 2 diabetes mellitus with diabetic chronic kidney disease; E66.01 Morbid (severe) obesity due to excess calories; E78.00 Pure hypercholesterolemia, unspecified; E78.5 Hyperlipidemia, unspecified; G47.33 Obstructive sleep apnea (adult) (pediatric); I48.0 Paroxysmal atrial fibrillation; J44.9 Chronic obstructive pulmonary disease, unspecified; M46.02 Spinal enthesopathy, cervical region; M48.02 Spinal stenosis, cervical region; M48.04 Spinal stenosis, thoracic region; M85.80 Other specified disorders of bone density and structure, unspecified site; Z96.653 Presence of artificial knee joint, bilateral; K21.9 Gastro-esophageal reflux disease without esophagitis; N18.30 Chronic kidney disease, stage 3 unspecified; N40.0 Benign prostatic hyperplasia without lower urinary tract symptoms; W01.0XXA Fall on same level from slipping, tripping and stumbling without subsequent striking against object, initial encounter; Z79.01 Long term (current) use of anticoagulants; Z83.3 Family history of diabetes mellitus; Z86.16 Personal history of COVID-19; Z87.01 Personal history of pneumonia (recurrent); Z87.891 Personal history of nicotine dependence; Z90.49 Acquired absence of other specified parts of digestive tract; Y93.89 Activity, other specified; Y92.89 Other specified places as the place of occurrence of the external cause; Y99.8 Other external cause status
CPT/HCPCS: 36415; 36430; 70450; 71045; 72125; 73502; 80048; 80053; 81001; 82306; 82962; 83880; 85025; 85027; 85610; 86850; 86900; 86901; 86920; 87077; 87086; 87186; 87426; 93005; 94640; 94660; 94760; 96374; 96376; A4213; A4223; A4657; A4930; A6223; A6258; A6402; C1713; C1755; C1776; G0238; J0171; J0690; J1100; J1815; J1940; J2270; J2405; J2704; J2710; J3010; J3260; J3370; J3490; J7060; P9016; U0003; 97110-GO; 97110-GP; 97530-GO; 97530-GP; 97535-GO; 99285-25; G0378; J7626

== ENCOUNTER 2022-01-10 10:59 | Emergency (ER) | payer MEDICARE, BC ==
[~2022-01-10] VITALS: Ht 177.8 cm; Wt 128.6 kg
[~2022-01-10 10:59] MED LIST changes: +ALPR0.5T PO; +APIX5TAB PO; +ASPI325T8 PO; -BENZ1LOZ48 PO; +BENZ1LOZ61 PO; +CIPR250T30 PO; +GUAI-108 PO; +HYDR-2869 PO; +INSU100V8 SQ; +NYST15CR2 TP; +NYST1POW5 MC; +OXYC-325 PO; +OXYC1TAB15 PO
[2022-01-10 11:41] LABS: BASO % 1 % (0-3); EOS # 0.1 x10^3/uL (0.0-0.7); EOS % 2 % (0-3); HEMATOCRIT 34.6 % (39.0-53.0); HEMOGLOBIN 11.4 g/dL (13.0-17.5); LYMPH # 0.7 x10^3/uL (1.0-4.8); LYMPH % 11 % (24-48); MEAN CORPUSCULAR HEMOGLOBIN 30 pg (25-35); MEAN CORPUSCULAR HGB CONC 33 g/dL (31-37); MEAN CORPUSCULAR VOLUME 92 fL (79-100); MONO # 0.5 x10^3/uL (0.0-1.1); MONO % 7 % (0-9); NEUT % 79 % (31-73); PLATELET COUNT 262 x10^3/uL (140-400); RED BLOOD COUNT 3.78 x10^6/uL (4.30-5.70); WHITE BLOOD COUNT 6.3 x10^3/uL (4.0-11.0)
[2022-01-10 12:08] LABS: BACTERIA,URINE MANY /HPF (0-FEW); RBC,URINE FIELD OBSCURED /HPF (0-2); WBC,URINE TNTC /HPF (0-4)
[2022-01-10 12:13] LABS: CREATININE 1.4 mg/dL (0.7-1.3); GFR 48.6; POTASSIUM 4.5 mmol/L (3.5-5.1)
[2022-01-10 12:19] LABS: ALBUMIN 2.6 g/dL (3.4-5.0); ALBUMIN/GLOBULIN RATIO 0.7 (1.0-1.7); TOTAL BILIRUBIN 0.7 mg/dL (0.2-1.0); TOTAL PROTEIN 6.1 g/dL (6.4-8.2)
[2022-01-10 12:58] VITALS: BP 122/62
[2022-01-10] MEDS ORDERED: cefTRIAXone IV Push 1 GM VIAL. IVP ONE (13:00)
[2022-01-10] MEDS ORDERED: SULF1TAB24 PO (13:56)
--- NOTE | 2022-01-10 15:18 | PHYS DOC ---
Past Medical History Past Medical History: Diabetes-Type II, GERD, High Cholesterol, Hypertension, Renal Failure Additional Past Medical Histor: EZIO,FALLS,GOUT, BPH Past Surgical History: No Surgical History Additional Past Surgical Histo: back Smoking Status: Never Smoker Alcohol Use: None Drug Use: None General Adult EDM: Chief Complaint: BLOOD IN URINE HPI: HPI: Patient is a 81 year old male with recent Maher removal who presents with urinary retention. Patient states that he recently had a Maher placed about a month ago for urinary retention at his assisted living facility, it was removed today due to burning with urination. He states that he has been unable to pee since then. Patient has no other symptoms, no back pain, no fever, no abdominal pain. Patient states that he does have some dysuria. Review of Systems: Review of Systems: Constitutional: Denies fever or chills. [] Eyes: Denies change in visual acuity. [] HENT: Denies nasal congestion or sore throat. [] Respiratory: Denies cough or shortness of breath. [] Cardiovascular: Denies chest pain or edema. [] GI: Denies abdominal pain, nausea, vomiting, bloody stools or diarrhea. [] : Positive dysuria. [] Musculoskeletal: Denies back pain or joint pain. [] Integument: Denies rash. [] Neurologic: Denies headache, focal weakness or sensory changes. [] Endocrine: Denies polyuria or polydipsia. [] Lymphatic: Denies swollen glands. [] Psychiatric: Denies depression or anxiety. [] Heart Score: C/O Chest Pain: No Risk Factors: Risk Factors: DM, Current or recent (<one month) smoker, HTN, HLP, family history of CAD, obesity. Risk Scores: Score 0 - 3: 2.5% MACE over next 6 weeks - Discharge Home Score 4 - 6: 20.3% MACE over next 6 weeks - Admit for Clinical Observation Score 7 - 10: 72.7% MACE over next 6 weeks - Early Invasive Strategies Current Medications: Current Medications Medications (Trade) Dose Ordered Sig/Nigel Start Time Stop Time Status Last Admin Dose Admin Ceftriaxone Sodium (Rocephin) 1 gm 1X ONCE 01/10/22 13:00 01/10/22 13:01 DC 01/10/22 12:57 1 GM Allergies: Allergies: Allergies Coded Allergies Type Severity Reaction Last Updated Verified No Known Drug Allergies 01/10/22 No Physical Exam: PE: Constitutional: Well developed, well nourished, no acute distress, non-toxic appearance. [] HENT: Normocephalic, atraumatic, bilateral external ears normal, oropharynx moist, no oral exudates, nose normal. [] Eyes: PERRLA, EOMI, conjunctiva normal, no discharge. [] Neck: Normal range of motion, no tenderness, supple, no stridor. [] Cardiovascular:Heart rate regular rhythm, no murmur [] Lungs & Thorax: Bilateral breath sounds clear to auscultation [] Abdomen: Bowel sounds normal, soft, no tenderness, no masses, no pulsatile masses. [] Skin: Warm, dry, no erythema, no rash. [] Back: No tenderness, no CVA tenderness. [] Extremities: No tenderness, no cyanosis, no clubbing, ROM intact, no edema. [] Neurologic: Alert and oriented X 3, normal motor function, normal sensory function, no focal deficits noted. [] Psychologic: Affect normal, judgement normal, mood normal. [] Current Patient Data: Labs: Laboratory Tests Test 01/10/22 11:30 01/10/22 11:41 01/10/22 11:53 White Blood Count 6.3 x10^3/uL (4.0-11.0) Red Blood Count 3.78 x10^6/uL (4.30-5.70) L Hemoglobin 11.4 g/dL (13.0-17.5) L Hematocrit 34.6 % (39.0-53.0) L Mean Corpuscular Volume 92 fL (79-100) Mean Corpuscular Hemoglobin 30 pg (25-35) Mean Corpuscular Hemoglobin Concent 33 g/dL (31-37) Red Cell Distribution Width 18.0 % (11.5-14.5) H Platelet Count 262 x10^3/uL (140-400) Neutrophils (%) (Auto) 79 % (31-73) H Lymphocytes (%) (Auto) 11 % (24-48) L Monocytes (%) (Auto) 7 % (0-9) Eosinophils (%) (Auto) 2 % (0-3) Basophils (%) (Auto) 1 % (0-3) Neutrophils # (Auto) 5.0 x10^3/uL (1.8-7.7) Lymphocytes # (Auto) 0.7 x10^3/uL (1.0-4.8) L Monocytes # (Auto) 0.5 x10^3/uL (0.0-1.1) Eosinophils # (Auto) 0.1 x10^3/uL (0.0-0.7) Basophils # (Auto) 0.0 x10^3/uL (0.0-0.2) Urine Collection Type U cath Urine Color (Auto) Light orange Urine Turbidity Turbid Urine pH (Auto) 8.0 (<5.0-8.0) Urine Specific Joseph 1.009 (1.000-1.030) Urine Protein (Auto) 100 mg/dL (Negative) Urine Glucose (Auto)(UA) Negative mg/dL (Negative) Urine Ketones (Auto) Negative mg/dL (Negative) Urine Blood (Auto) Small (Negative) Urine Nitrite Positive (Negative) Urine Bilirubin (Auto) Negative (Negative) Urine Urobilinogen (Auto) Normal mg/dL (Normal) Urine Leukocyte Esterase (Auto) Large (Negative) Urine RBC Field obscured /HPF (0-2) Urine WBC Tntc /HPF (0-4) Urine Bacteria Many /HPF (0-FEW) Sodium Level 139 mmol/L (136-145) Potassium Level 4.5 mmol/L (3.5-5.1) Chloride Level 102 mmol/L (98-107) Carbon Dioxide Level 30 mmol/L (21-32) Anion Gap 7 (6-14) Blood Urea Nitrogen 30 mg/dL (8-26) H Creatinine 1.4 mg/dL (0.7-1.3) H Estimated GFR (Cockcroft-Gault) 48.6 BUN/Creatinine Ratio 21 (6-20) H Glucose Level 120 mg/dL (70-99) H Calcium Level 9.0 mg/dL (8.5-10.1) Total Bilirubin 0.7 mg/dL (0.2-1.0) Aspartate Amino Transferase (AST) 18 U/L (15-37) Alanine Aminotransferase (ALT) 15 U/L (16-63) L Alkaline Phosphatase 50 U/L (46-116) Total Protein 6.1 g/dL (6.4-8.2) L Albumin 2.6 g/dL (3.4-5.0) L Albumin/Globulin Ratio 0.7 (1.0-1.7) L Lipase 84 U/L (73-393) Laboratory Tests 01/10/22 11:30 Laboratory Tests 01/10/22 11:53 Vital Signs: Vital Signs Date Time Temp Pulse Resp B/P (MAP) Pulse Ox O2 Delivery O2 Flow Rate FiO2 01/10/22 12:58 68 24 122/62 (82) 97 Room Air 01/10/22 11:00 98.0 98.0 EKG: EKG: [] Radiology/Procedures: Radiology/Procedures: [] Impression: Acute cystitis with urinary retention Course & Med Decision Making: Course & Med Decision Making Pertinent Labs and Imaging studies reviewed. (See chart for details) Seen and evaluated by myself, 81-year-old male with history of acute urinary retention with recent Maher removal presents with acute urinary retention. Patient states that he does not like not having a Maher. He states that he likes the convenience. Maher placed today with 800 mL output. Positive for urinary tract infection. No other concerns on labs. Patient has a history of chronic kidney disease. Patient given prescription for Bactrim to be taken for the next 7 days. Patient agreed with plan of action, patient also refused inpatient stay if that was a possibility. Patient was given 1 g of Rocephin as well as his prescription of Bactrim. All questions answered, hemodynamically stable time of discharge. Patient given ER precautions for return in the case of worsening symptoms. David Disclaimer: David Disclaimer: This electronic medical record was generated, in whole or in part, using a voice recognition dictation system. Departure Departure Impression: Primary Impression: Urinary tract infection in male Additional Impression: Urinary retention Disposition: 03 [facility] Condition: GOOD Patient Instructions: Urinary Tract Infection, [id number] Additional Instructions: Take all of your antibiotics Return to the emergency department if you are feeling worse Follow-up with urology for removal of your Maher catheter in 1 week Scripts Sulfamethoxazole/Trimethoprim (BACTRIM DS TABLET) 1 Each Tablet 1 TAB PO BID, #14 TAB Prov: PHILLY SALDAÑA MD 01/10/22 PHILLY SALDAÑA MD January 10, 2022 15:18
== END 2022-01-10 14:33 ==
LOC: ER 10:59
DX: N39.0 Urinary tract infection, site not specified (principal); N40.1 Benign prostatic hyperplasia with lower urinary tract symptoms; R33.8 Other retention of urine; E11.22 Type 2 diabetes mellitus with diabetic chronic kidney disease; I12.9 Hypertensive chronic kidney disease with stage 1 through stage 4 chronic kidney disease, or unspecified chronic kidney disease; N18.9 Chronic kidney disease, unspecified; E78.00 Pure hypercholesterolemia, unspecified; K21.9 Gastro-esophageal reflux disease without esophagitis; M10.9 Gout, unspecified
CPT/HCPCS: 36415; 80053; 81001; 83690; 85025; 87077; 87086; 87186; 96374; 99283; J0696